=== PATIENT | female | born 1940 | race Caucasian/White ===

== ENCOUNTER 2022-08-31 11:48 | Inpatient (IN) ==
[2022-08-31] MEDS ORDERED: ONDANSETRON INJ 2 MG/ML 2 ML VIAL IV STA (12:10)
[2022-08-31] MEDS ORDERED: SODIUM CHLORIDE 0.9% 1000ML 1,000 ML IV ONE (12:10)
--- NOTE | 2022-08-31 12:14 | Emergency Department Note ---
Impression & Plan Abdominal pain, COVID, Vomiting ED Provider Note NAME: LUCY QUINTANILLA AGE: 82 SEX: F : 1940 ARRIVES VIA: Walk-In INFORMANT: Patient ED PROVIDER(S): Tam Zapata DO CHIEF COMPLAINT: Vomiting and COVID-positive HPI: Patient is an 81-year-old female who presents to the ER with daughter at bedside. Symptoms started on Friday feeling weak and rundown. She has a cough, congestion and runny nose. No chest pain or shortness of breath. She admits to persistent nausea which has been present for several months but now she has had vomiting for the past 24 hours consistently. She cannot keep anything down. She admits to periumbilical abdominal pain. No dysuria, urgency, or frequency. No other exacerbating or remitting factors. ROS: See above HPI for pertinent positives & negatives. A total of 10 systems reviewed and were otherwise negative. PAST MEDICAL HISTORY:See Below PAST SURGICAL HISTORY:See Below FAMILY HISTORY:See Below SOCIAL HISTORY:See Below HOME MEDICATIONS:See Below ALLERGIES:See Below VITALS:See Below PHYSICAL EXAMINATION: GENERAL: Sitting up in bed, alert, chronically ill-appearing, disheveled, persistent cough EYE EXAM: normal conjunctiva. OROPHARYNX: mucous membranes are dry NECK: supple, no nuchal rigidity, no adenopathy, non-tender LUNGS: Clear to auscultation. Normal chest wall mechanics HEART: no murmurs, S1 normal and S2 normal ABDOMEN: abdomen soft, non-tender, normo-active bowel sounds, no masses, no rebound or guarding. UPPER EXTREMITIES: upper extremities are grossly normal. LOWER EXTREMITIES: No pitting edema. NEURO EXAM: Normal sensorium, cranial nerves II-XII grossly intact, normal speech, no gross weakness of arms, no gross weakness of legs. MEDICAL DECISION MAKING: Patient is an 82-year-old female who presents the ER who is COVID-positive with nausea vomiting abdominal pain. She denies any chest pain or shortness of breath. IV was established blood work is obtained. Labs show no significant leukocytosis. Mild anemia 10.9. BMP with creatinine 1.37. LFTs bilirubin was unremarkable. Lipase was normal. UA was contaminated. Patient was COVID-positive. CT abdomen pelvis shows mild pulmonary edema and a tubular lesion in the right lower quadrant. This can be followed up as an inpatient. She was given multiple doses of Zofran and Reglan and still had persistent vomiting. She was given a small dill bolus of IV fluids. She was updated bedside. Discussed with hospitalist [facility] She was also given 2 doses of morphine which did drop her oxygen saturations. She became slightly hypoxic. She was placed on 2 L nasal cannula. Triage Nursing notes reviewed. Limited review of prior medical records performed Vital Signs: reviewed and remarkable for HTN Differential diagnosis: Differential diagnoses includes but is not limited to gastritis, peptic ulcer disease, GERD, gallbladder disease, pancreatitis, small bowel obstruction, acute coronary syndrome, pericarditis, ischemic bowel, irritable bowel disease, irritable bowel syndrome, appendicitis, diverticulitis, malignancy, hernia, urinary tract infection, torsion, /ectopic (if female), perforation, trauma, infectious. ER treatment provided: See below Diagnostics interpreted by me: ECG: none Cardiac Monitoring: An order was placed for continuous cardiac monitoring. The monitor shows a rate of 70 with sinus rhythm. Laboratory studies: As stated above and show below. Imaging studies: CT as described above of the abdomen pelvis Consultation(s): [facility] Procedures: none Critical Care: None Past Med/Surg History Social History Smoking Status: Former smoker Preferred Language: Syriac Feels Safe at Home: Yes Allergies Allergies Allergy/AdvReac Type Severity Reaction Status Date / Time oxycodone Allergy Unknown Verified 08/31/22 16:25 Home Meds Home Medications Medication Instructions Recorded Confirmed acetaminophen 500 mg tablet 500 mg PO Q6 PRN Fever Or Pain 08/31/22 08/31/22 acetaminophen 500 mg tablet 500 mg PO QPM 08/31/22 08/31/22 atorvastatin 10 mg tablet 10 mg PO HS 08/31/22 08/31/22 brimonidine 0.1 % eye drops 1 drp OPL BID 08/31/22 08/31/22 (Alphagan P) cholecalciferol (vitamin D3) 50 2,000 unit PO AMHS 08/31/22 08/31/22 mcg (2,000 unit) capsule dorzolamide 22.3 mg-timolol 6.8 1 drp OPL AMHS 08/31/22 08/31/22 mg/mL eye drops furosemide 40 mg tablet 20 mg PO QAM 08/31/22 08/31/22 hydralazine 25 mg tablet 50 mg PO AMHS 08/31/22 08/31/22 insulin aspart U-100 100 unit/mL 1 - 3 unit subcut .WITH BREAKFAST 08/31/22 08/31/22 (3 mL) subcutaneous pen (Novolog Flexpen U-100 Insulin aspart) insulin glargine 100 unit/mL (3 15 - 18 unit subcut .Q AFTERNOON & 08/31/22 08/31/22 mL) subcutaneous pen (Basaglar HS KwikPen U-100 Insulin) labetalol 200 mg tablet 300 mg PO AMHS 08/31/22 08/31/22 metoclopramide HCl 5 mg tablet 5 mg PO DAILYBB 08/31/22 08/31/22 ondansetron HCl 4 mg tablet 4 mg PO Q8 PRN Nausea 08/31/22 08/31/22 pantoprazole 40 mg tablet,delayed 40 mg PO HS 08/31/22 08/31/22 release silver sulfadiazine 1 % topical 1 applic topical BID 08/31/22 08/31/22 cream (SSD) travoprost 0.004 % eye drops 1 drp OPL QPM 08/31/22 08/31/22 (Travatan Z) Results & Data (ED) Vital Signs Vital Signs - 24 hr 08/31/22 11:53 08/31/22 13:37 08/31/22 15:23 Pulse Rate 71 Pulse Rate [Right Finger] 71 76 Respiratory Rate 18 18 18 Respiratory Depth Normal Blood Pressure 188/93 H Blood Pressure [Right Arm] 144/77 H 137/68 Blood Pressure Mean 124 Blood Pressure Mean [Right Arm] 99 91 Blood Pressure Position Sitting Blood Pressure Position [Right Arm] Lying Pulse Oximetry 94 91 91 Oxygen Delivery Method Room Air Room Air Nasal Cannula Oxygen Flow Rate 3 Sepsis Recent Fever Within 48 Hours No Sepsis New/Unexplained Change in Mental Status No Sepsis Action Taken by Nursing No Action Required 08/31/22 15:40 08/31/22 16:46 Pulse Rate Pulse Rate [Right Finger] Respiratory Rate Respiratory Depth Blood Pressure Blood Pressure [Right Arm] Blood Pressure Mean Blood Pressure Mean [Right Arm] Blood Pressure Position Blood Pressure Position [Right Arm] Pulse Oximetry 97 93 Oxygen Delivery Method Room Air Nasal Cannula Oxygen Flow Rate 3 Sepsis Recent Fever Within 48 Hours Sepsis New/Unexplained Change in Mental Status Sepsis Action Taken by Nursing Laboratory Data Result diagrams: 08/31/22 12:50 08/31/22 12:50 Lab Results 08/31/22 08/31/22 08/31/22 Range/Units 12:50 12:50 12:50 WBC 5.62 (4.8-10.8) K/ul RBC 4.16 (3.93-5.22) M/uL Hgb 10.9 L (12.0-16.0) g/dl Hct 32.8 L (34.1-44.9) % MCV 78.8 L (80.0-100.0) fL MCH 26.2 (25.0-34.0) pg MCHC 33.2 (32.0-36.0) g/dL RDW Std Deviation 41.2 (36.4-46.3) fL RDW Coeff of Maegan 14.6 H (11.5-14.5) % Plt Count 200 (130-400) K/uL MPV 11.4 (9.4-12.3) fL Immature Gran % (Auto) 0.2 % Neut % (Auto) 71.7 % Lymph % (Auto) 23.3 % Door % (Auto) 4.4 % Eos % (Auto) 0.2 % Baso % (Auto) 0.2 % Neut # (Auto) 4.03 (1.4-6.5) K/uL Lymph # (Auto) 1.31 (1.2-3.4) K/uL Door # (Auto) 0.25 (0.24-0.82) K/uL Eos # (Auto) 0.01 (0-0.50) K/uL Baso # (Auto) 0.01 (0-0.2) K/uL Immature Gran # (Auto) 0.01 (0.00-0.02) K/uL Sodium 134 L (136-145) mmol/L Potassium 3.9 (3.5-5.1) mmol/L Chloride 99 (98-107) mmol/L Carbon Dioxide 22 (21-32) mmol/L Anion Gap 13 H (3-11) BUN 24 H (6-23) mg/dl Creatinine 1.37 H (0.6-1.2) mg/dl Est Cr Clr Drug Dosing Not Reportable Est GFR ( Amer) 41.2 ml/min Est GFR (Non-Af Amer) 35.6 ml/min BUN/Creatinine Ratio 17.5 (10-20) Glucose 217 H (70-99(Fasting)) mg/dl POC Glucose (70-99) mg/dl Calcium 8.9 (8.5-10.1) mg/dl Total Bilirubin 0.4 (0.2-1.0) mg/dl AST 23 (13-39) U/L ALT 14 (7-52) U/L Alkaline Phosphatase 92 (34-104) U/L Total Protein 7.5 (6.0-8.3) gm/dl Albumin 4.1 (3.4-5.0) gm/dl Globulin 3.4 (2.5-4.0) gm/dl Albumin/Globulin Ratio 1.2 (0.9-2) Lipase 12 (11-82) U/L Urine Color Urine Appearance (Clear) Urine pH (4.5-7.5) Ur Specific Lottie (1.000-1.030) Urine Protein (Negative) Urine Glucose (UA) (Negative) Urine Ketones (Negative) Urine Blood (Negative) Urine Nitrite (Negative) Urine Bilirubin (Negative) Urine Urobilinogen (Negative) Ur Leukocyte Esterase (Negative) Urine WBC (Auto) (0-5) /hpf Urine RBC (Auto) (0-4) /hpf U Hyaline Cast (Auto) (0-5) /lpf U Epithel Cells (Auto) (0-5) /lpf Urine Bacteria (Auto) (Negative) SARS-CoV-2, RNA, NAAT POSITIVE A* (NEGATIVE) 08/31/22 08/31/22 Range/Units 13:33 16:44 WBC (4.8-10.8) K/ul RBC (3.93-5.22) M/uL Hgb (12.0-16.0) g/dl Hct (34.1-44.9) % MCV (80.0-100.0) fL MCH (25.0-34.0) pg MCHC (32.0-36.0) g/dL RDW Std Deviation (36.4-46.3) fL RDW Coeff of Maegan (11.5-14.5) % Plt Count (130-400) K/uL MPV (9.4-12.3) fL Immature Gran % (Auto) % Neut % (Auto) % Lymph % (Auto) % Door % (Auto) % Eos % (Auto) % Baso % (Auto) % Neut # (Auto) (1.4-6.5) K/uL Lymph # (Auto) (1.2-3.4) K/uL Door # (Auto) (0.24-0.82) K/uL Eos # (Auto) (0-0.50) K/uL Baso # (Auto) (0-0.2) K/uL Immature Gran # (Auto) (0.00-0.02) K/uL Sodium (136-145) mmol/L Potassium (3.5-5.1) mmol/L Chloride (98-107) mmol/L Carbon Dioxide (21-32) mmol/L Anion Gap (3-11) BUN (6-23) mg/dl Creatinine (0.6-1.2) mg/dl Est Cr Clr Drug Dosing Est GFR ( Amer) ml/min Est GFR (Non-Af Amer) ml/min BUN/Creatinine Ratio (10-20) Glucose (70-99(Fasting)) mg/dl POC Glucose 239 H (70-99) mg/dl Calcium (8.5-10.1) mg/dl Total Bilirubin (0.2-1.0) mg/dl AST (13-39) U/L ALT (7-52) U/L Alkaline Phosphatase (34-104) U/L Total Protein (6.0-8.3) gm/dl Albumin (3.4-5.0) gm/dl Globulin (2.5-4.0) gm/dl Albumin/Globulin Ratio (0.9-2) Lipase (11-82) U/L Urine Color Yellow Urine Appearance Cloudy A (Clear) Urine pH 6.0 (4.5-7.5) Ur Specific Lottie 1.013 (1.000-1.030) Urine Protein 3+ H (Negative) Urine Glucose (UA) 2+ H (Negative) Urine Ketones 1+ H (Negative) Urine Blood Trace H (Negative) Urine Nitrite Negative (Negative) Urine Bilirubin Negative (Negative) Urine Urobilinogen Negative (Negative) Ur Leukocyte Esterase Trace H (Negative) Urine WBC (Auto) >30 H (0-5) /hpf Urine RBC (Auto) 0-4 (0-4) /hpf U Hyaline Cast (Auto) 1-5 (0-5) /lpf U Epithel Cells (Auto) >30 H (0-5) /lpf Urine Bacteria (Auto) 4+ H (Negative) SARS-CoV-2, RNA, NAAT (NEGATIVE) Administered Medications Ceftriaxone Sodium 2,000 mg/ (Dextrose) 70 mls @ 100 mls/hr IV DAILY ERIN; Protocol Stop: 09/05/22 16:44 Last Admin: 08/31/22 17:16 Dose: 100 mls/hr Documented By: ALEX Discontinued Medications Sodium Chloride (Nss 1000ml) 1,000 mls @ 999 mls/hr IV .Q1H1M ONE Stop: 08/31/22 13:10 Last Infusion: 08/31/22 14:55 Dose: 0 mls/hr Documented By: Admin: 08/31/22 12:43 Dose: 999 mls/hr Documented By: KASSANDRA Ioversol (Ioversol 350 Mg 100ml Prefilled Syringe) 85 ml IV ONCE ONE Stop: 08/31/22 15:00 Last Admin: 08/31/22 15:05 Dose: 85 ml Documented By: CARLIE Metoclopramide HCl (Metoclopramide Hcl Inj 5 Mg/Ml 2 Ml Vial) 5 mg IV ONE ONE Stop: 08/31/22 13:59 Last Admin: 08/31/22 14:28 Dose: 5 mg Documented By: KASSANDRA Morphine Sulfate (Morphine Sulfate 4 Mg/Ml 1 Ml Carp\Vial) 4 mg IV NOW STA Stop: 08/31/22 13:14 Last Admin: 08/31/22 13:21 Dose: 4 mg Documented By: KASSANDRA Morphine Sulfate (Morphine Sulfate 2 Mg/Ml Carp) 2 mg IV NOW STA Stop: 08/31/22 14:37 Last Admin: 08/31/22 14:40 Dose: 2 mg Documented By: KASSANDRA Ondansetron HCl (Ondansetron Inj 2 Mg/Ml 2 Ml Vial) 4 mg IV NOW STA Stop: 08/31/22 12:11 Last Admin: 08/31/22 12:42 Dose: 4 mg Documented By: KASSANDRA Imaging Data Radiologist's Impression: Abdomen/Pelvis CT 08/31/22 12:[address] WITH IV CONTRAST CT DOSE: 641.61 mGy.cm HISTORY: Nausea. Vomiting. TECHNIQUE: Multiaxial CT images of the abdomen and pelvis were performed following the use of intravenous contrast. A dose lowering technique was utilized adhering to the principles of ALARA. COMPARISON STUDY: None. FINDINGS: Mild interlobular septal thickening at the lung bases consistent with pulmonary edema. Fusion of the L4-5 vertebral bodies. There are severe degenerative disc disease at L3-L4 and L5-S1. No pneumoperitoneum. No pneumatosis. No acute fractures within the visualized osseous structures. Mild circumferential thickening of the distal esophagus with a small hiatus hernia. Small fat-containing bilateral inguinal hernias. There is a 5.0 x 2.6 cm hypodense tubular shaped lesion within the right lower quadrant. This appears to be contiguous with the tip of the appendix as well as adjacent to the right ovary. Therefore, this could represent an appendiceal mucocele or possibly an ovarian lesion. Regardless, this would be considered pathologic. No surrounding inflammatory change to suggest an acute process. The bladder, uterus, left ovary are within normal limits. No pelvic free fluid. No bowel wall thickening or obstruction. No retroperitoneal lymphadenopathy. Calcified plaque within the normal caliber abdominal aorta. The main portal vein is patent. The gallbladder, spleen, and adrenal glands unremarkable. Normal pancreas. A 1 cm hypodense lesion within the left hepatic lobe. This favors a cyst. There is moderate bilateral perinephric edema. Small linear areas of fat density within the left kidney which may represent areas of cortical scarring or small angiomyolipomas. No ureteral stones. No hydronephrosis. The majority the colon is decompressed. IMPRESSION: 1. Mild interlobular septal thickening within the lung bases consistent with mild pulmonary edema. No pleural effusions. 2. No bowel wall thickening or obstruction. 3. Moderate bilateral perinephric edema. This is likely chronic. Recommend correlation with urinalysis to exclude the possibility of a superimposed infection. 4. There is a 5.0 x 2.6 cm hypodense tubular shaped lesion within the right lower quadrant. This appears to be contiguous with the tip of the appendix as well as adjacent to the right ovary. Therefore, this could represent an appendiceal mucocele or possibly an ovarian lesion. Regardless, this would be considered pathologic and nonemergent surgical consultation recommended. 5. Additional findings as described above. ACT 112: Negative or not required by law. Electronically signed by: Chester Jalloh M.D. 08/31/2022 3:20 PM Chest X-Ray 08/31/22 12:10 XR chest 1V portable HISTORY: cough COMPARISON: None. FINDINGS: The cardiac silhouette is top normal in size. Mild central bronchial wall thickening which is likely chronic. No new focal lung consolidations to suggest a pneumonia. No evidence for pulmonary edema. There is eventration of the right hemidiaphragm. IMPRESSION: No acute process. ACT 112: Negative or not required by law. Electronically signed by: Chester Jalloh M.D. 08/31/2022 12:31 PM Discharge Plan Visit Data Chief Complaint: Vomiting Stated Complaint: VOMITTING SINCE LAST NIGHT, COVID POSITIVE ED Provider: Tam Zapata Discharge Problem: Abdominal pain, COVID, Vomiting Forms Stand Alone Forms: [facility] Prescriptions Prescriptions: No Action furosemide 40 mg tablet 20 mg PO QAM Rx Instructions: 1/2 tablet dose silver sulfadiazine [SSD] 1 % cream 1 applic TOPICAL BID Rx Instructions: apply to bed sore labetalol 200 mg tablet 300 mg PO AMHS Rx Instructions: 1 & 1/2 tablet dose atorvastatin 10 mg tablet 10 mg PO HS ondansetron HCl 4 mg tablet 4 mg PO Q8 PRN (Reason: Nausea) travoprost [Travatan Z] 0.004 % drops 1 drp OPL QPM acetaminophen 500 mg tablet 500 mg PO Q6 PRN (Reason: Fever Or Pain) metoclopramide HCl 5 mg tablet 5 mg PO DAILYBB dorzolamide-timolol 22.3-6.8 mg/mL drops 1 drp OPL AMHS Rx Instructions: 1 drop into each affected eye twice a day pantoprazole 40 mg tablet,delayed release (DR/EC) 40 mg PO HS Alphagan P 0.1 % drops 1 drp OPL BID insulin glargine [Basaglar KwikPen U-100 Insulin] 100 unit/mL (3 mL) insulin pen 15 - 18 unit SUBCUT .Q AFTERNOON & HS Rx Instructions: sliding scale post BSG every afternoon and at bedtime cholecalciferol (vitamin D3) 50 mcg (2,000 unit) capsule 2,000 unit PO AMHS hydralazine 25 mg tablet 50 mg PO AMHS acetaminophen 500 mg tablet 500 mg PO QPM insulin aspart U-100 [Novolog Flexpen U-100 Insulin] 100 unit/mL (3 mL) insulin pen 1 - 3 unit SUBCUT .WITH BREAKFAST Referrals Referrals: PCP,NO [Primary Care Provider] -
--- NOTE | 2022-08-31 12:32 | XRay Report ---
XR chest 1V portable HISTORY: cough COMPARISON: None. FINDINGS: The cardiac silhouette is top normal in size. Mild central bronchial wall thickening which is likely chronic. No new focal lung consolidations to suggest a pneumonia. No evidence for pulmonary edema. There is eventration of the right hemidiaphragm. IMPRESSION: No acute process. ACT 112: Negative or not required by law. Electronically signed by: Chester Jalloh M.D. 08/31/2022 12:31 PM
[2022-08-31] MEDS ORDERED: MoRPHine SULFATE 4 MG/ML 1 ML CARP\\VIAL IV STA (13:13)
[2022-08-31 13:17] LABS: Basophils # (auto) 0.01 K/uL (0-0.2); Basophils % (auto) 0.2 %; Eosinophils # (auto) 0.01 K/uL (0-0.50); Eosinophils % (auto) 0.2 %; Hematocrit (blood only) 32.8 % (34.1-44.9); Hemoglobin 10.9 g/dl (12.0-16.0); Immature Granulocytes # (auto) 0.01 K/uL (0.00-0.02); Immature Granulocytes % (auto) 0.2 %; Lymphocytes # (auto) 1.31 K/uL (1.2-3.4); Lymphocytes % (auto) 23.3 %; Mean Corpuscular Hemoglobin 26.2 pg (25.0-34.0); Mean Corpuscular Hgb Conc 33.2 g/dL (32.0-36.0); Mean Corpuscular Volume 78.8 fL (80.0-100.0); Mean Platelet Volume 11.4 fL (9.4-12.3); Monocytes # (auto) 0.25 K/uL (0.24-0.82); Monocytes % (auto) 4.4 %; Neutrophils # (auto) 4.03 K/uL (1.4-6.5); Neutrophils % (auto) 71.7 %; Platelet Count 200 K/uL (130-400); RDW Coefficient of Variation 14.6 % (11.5-14.5); RDW Standard Deviation 41.2 fL (36.4-46.3); Red Blood Count 4.16 M/uL (3.93-5.22); White Blood Count 5.62 K/ul (4.8-10.8)
[2022-08-31 13:38] LABS: Alanine Aminotransferase 14 U/L (7-52); Albumin Globulin Ratio 1.2 (0.9-2); Albumin Level 4.1 gm/dl (3.4-5.0); Alkaline Phosphatase 92 U/L (34-104); Anion Gap 13 (3-11); Aspartate Aminotransferase 23 U/L (13-39); BUN Creatinine Ratio 17.5 (10-20); Bilirubin,Total 0.4 mg/dl (0.2-1.0); Blood Urea Nitrogen 24 mg/dl (6-23); Calcium 8.9 mg/dl (8.5-10.1); Carbon Dioxide 22 mmol/L (21-32); Chloride 99 mmol/L (98-107); Est GFR (African American) 41.2 ml/min; Est GFR (Non-African American) 35.6 ml/min; Globulin 3.4 gm/dl (2.5-4.0); Glucose 217 mg/dl (70-99(Fasting)); Lipase 12 U/L (11-82); Potassium 3.9 mmol/L (3.5-5.1); Sodium 134 mmol/L (136-145); Total Protein 7.5 gm/dl (6.0-8.3)
[2022-08-31 13:52] LABS: Appearance Urine Cloudy (Clear); Bacteria Urine Automated 4+ (Negative); Bilirubin Urine Negative (Negative); Blood Urine Trace (Negative); Color Urine Yellow; Epithelial Cell Urine Auto >30 /lpf (0-5); Glucose Urine UA 2+ (Negative); Ketones Urine 1+ (Negative); Leukocyte Esterase Urine Trace (Negative); Nitrite Urine Negative (Negative); Protein Urine 3+ (Negative); RBC Urine Automated 0-4 /hpf (0-4); Specific Gravity Urine 1.013 (1.000-1.030); Urobilinogen Urine Negative (Negative); WBC Urine Automated >30 /hpf (0-5)
[2022-08-31] MEDS ORDERED: METOCLOPRAMIDE HCL INJ 5 MG/ML 2 ML VIAL IV ONE (13:58)
[2022-08-31] MEDS ORDERED: MoRPHine SULFATE 2 MG/ML CARP IV STA (14:36)
[2022-08-31] MEDS ORDERED: IOVERSOL 350 MG 100mL Prefilled Syringe IV ONE (14:59)
--- NOTE | 2022-08-31 15:22 | CT Scan Report ---
ABDOMEN AND PELVIS CT WITH IV CONTRAST CT DOSE: 641.61 mGy.cm HISTORY: Nausea. Vomiting. TECHNIQUE: Multiaxial CT images of the abdomen and pelvis were performed following the use of intrave nous contrast. A dose lowering technique was utilized adhering to the principles of ALARA. COMPARISON STUDY: None. FINDINGS: Mild interlobular septal thickening at the lung bases consistent with pulmonary edema. Fusi on of the L4-5 vertebral bodies. There are severe degenerative disc disease at L3-L4 and L5-S1. No pn eumoperitoneum. No pneumatosis. No acute fractures within the visualized osseous structures. Mild cir cumferential thickening of the distal esophagus with a small hiatus hernia. Small fat-containing bila teral inguinal hernias. There is a 5.0 x 2.6 cm hypodense tubular shaped lesion within the right lowe r quadrant. This appears to be contiguous with the tip of the appendix as well as adjacent to the rig ht ovary. Therefore, this could represent an appendiceal mucocele or possibly an ovarian lesion. Rega rdless, this would be considered pathologic. No surrounding inflammatory change to suggest an acute p rocess. The bladder, uterus, left ovary are within normal limits. No pelvic free fluid. No bowel wall thickening or obstruction. No retroperitoneal lymphadenopathy. Calcified plaque within the normal ca liber abdominal aorta. The main portal vein is patent. The gallbladder, spleen, and adrenal glands un remarkable. Normal pancreas. A 1 cm hypodense lesion within the left hepatic lobe. This favors a cyst . There is moderate bilateral perinephric edema. Small linear areas of fat density within the left ki dney which may represent areas of cortical scarring or small angiomyolipomas. No ureteral stones. No hydronephrosis. The majority the colon is decompressed. IMPRESSION: 1. Mild interlobular septal thickening within the lung bases consistent with mild pulmonary edema. No pleural effusions. 2. No bowel wall thickening or obstruction. 3. Moderate bilateral perinephric edema. This is likely chronic. Recommend correlation with urinalysi s to exclude the possibility of a superimposed infection. 4. There is a 5.0 x 2.6 cm hypodense tubular shaped lesion within the right lower quadrant. This appe ars to be contiguous with the tip of the appendix as well as adjacent to the right ovary. Therefore, this could represent an appendiceal mucocele or possibly an ovarian lesion. Regardless, this would be considered pathologic and nonemergent surgical consultation recommended. 5. Additional findings as described above. ACT 112: Negative or not required by law. Electronically signed by: Chester Jalloh M.D. 08/31/2022 3:20 PM
[2022-08-31] MEDS ORDERED: ACETAMINOPHEN 325 MG TAB PO PRN (15:49)
[2022-08-31] MEDS ORDERED: GLUCOSE 40% GEL 15 GM TUBE PO PRN (15:53)
[2022-08-31] MEDS ORDERED: GLUCAGON FOR INJ 1 MG VIAL SQ PRN (15:53)
[2022-08-31] MEDS ORDERED: GLUCOSE 10 TAB/TUBE PO PRN (15:53)
[2022-08-31] MEDS ORDERED: DEXTROSE 50% 50 ML SYRINGE IV PRN (15:53)
[2022-08-31] MEDS ORDERED: CARBOHYDRATES FOR HYPOGLYCEMIA PO PRN (15:53)
[2022-08-31] MEDS ORDERED: PHARMACY GLYCEMIC MGMT CONSULT PRN (15:53)
[2022-08-31] MEDS ORDERED: Patient's ALLERGY Info needs ENTERED SCH (16:00)
--- NOTE | 2022-08-31 17:05 | History & Physical Report ---
Date of Service August 31, 2022 Assessment & Plan (1) Gastroparesis: Plan: - persistent n/v and abdominal pain in the setting of diabetes - reports recent use of metoclopramide with ?torticollis side effects? - will avoid metoclopramide for now - NPO - IVF - IV erythromycin - GI consult - insulin for DM and good BG control in setting of gastroparesis (2) DM2 (diabetes mellitus, type 2): Plan: - A1c pending - on lantus and prandials - will continue here - diabetic diet when tolerating PO - pharmacy insulin management (3) HTN (hypertension): Plan: - continue home medications - IV prns as needed if not tolerating PO (4) COVID-19: Plan: - mild symptoms of sore throat and rhinorrhea - now resolved - persistent dry cough - oxygen borderline but will monitor overnight before treating with steroids and remdesivir - oxygen as needed to keep SpO2 >92% (5) Anemia: Plan: - ghb 10.9 on admission - unclear baseline - no bleeding noted - iron studies, ferritin, b12, folate ordered - monitor for now (6) MARY KATE (acute kidney injury): Plan: - likely in the setting of decreased po intake and n/v/d - IVF in ed and will continue - trend Cr - avoid nephrotoxic meds (7) Hyponatremia: Plan: - likely from decreased po - IVF as above - monitor Na in AM labs (8) UTI (urinary tract infection): Plan: - positive UA, positive symptoms of frequency - will treat with IVF - ceftriaxone for 5 days Plan DVT ppx: heparin SC Code Status: Full Code Dispo: med/surg Tom Reed MD [facility] History of Present Illness Chief Complaint: nausea, vomiting, abdominal pain Primary Care Provider: NO PCP The patient is an 82 year old woman with pmh DM2, gastroparesis, HLD, HTN who presents with 2-3 days of intractable nausea and vomiting with abdominal pain. the patient and daughter at bedside say she has been experiencing persistent nausea for several months and had seen a business services vice president who prescribed metoclopramide for gastroparesis. However, the patient reports symptoms of torti kanu after starting metoclopramide despite relief from gastroparesis symptoms. The patient reports severe vomiting starting last night, prior to admission. She has not been able to eat and has had terrible abdominal pain. She denies fevers or chills but was COVID positive since Friday prior to admission with symptoms of sore throat, loss of taste, rhinorrhea, dry cough. She also reports decreased appetite for the past 2 weeks with minimal po intake due to pain, nausea and vomiting. Denies blood in vomit. Had several episodes of diarrhea in the last 24 hours as well. Denies chest pain, shortness of breath, dysuria but endorses frequency. In the ED, vitals were unremarkable. Labs were significant for Na 134, Cr 1.37 (unclear baseline), hgb 10.9 (unclear baseline), BG 217, AG 13, UA positive for infection, SARS-CoV-2 positive. CXR was negative, CT-AP showed possible ?mucocele (5.0 x 2.6 cm hypodense tubular shaped lesion within the right lower quadrant. This appears to be contiguous with the tip of the appendix as well as adjacent to the right ovary. Therefore, this could represent an appendiceal mucocele or possibly an ovarian lesion). She was given IVF, pain medication, metoclopramide and admitted to medicine. Allergies Allergy/AdvReac Type Severity Reaction Status Date / Time oxycodone Allergy Unknown Verified 08/31/22 16:25 Home Medications Medication Instructions Recorded Confirmed Type acetaminophen 500 mg tablet 500 mg PO Q6 PRN Fever Or Pain 08/31/22 08/31/22 History acetaminophen 500 mg tablet 500 mg PO QPM 08/31/22 08/31/22 History atorvastatin 10 mg tablet 10 mg PO HS 08/31/22 08/31/22 History brimonidine 0.1 % eye drops 1 drp OPL BID 08/31/22 08/31/22 History (Alphagan P) cholecalciferol (vitamin D3) 50 2,000 unit PO AMHS 08/31/22 08/31/22 History mcg (2,000 unit) capsule dorzolamide 22.3 mg-timolol 6.8 1 drp OPL AMHS 08/31/22 08/31/22 History mg/mL eye drops furosemide 40 mg tablet 20 mg PO QAM 08/31/22 08/31/22 History hydralazine 25 mg tablet 50 mg PO AMHS 08/31/22 08/31/22 History insulin aspart U-100 100 unit/mL 1 - 3 unit subcut .WITH BREAKFAST 08/31/22 08/31/22 History (3 mL) subcutaneous pen (Novolog Flexpen U-100 Insulin aspart) insulin glargine 100 unit/mL (3 15 - 18 unit subcut .Q AFTERNOON & 08/31/22 08/31/22 History mL) subcutaneous pen (Basaglar HS KwikPen U-100 Insulin) labetalol 200 mg tablet 300 mg PO AMHS 08/31/22 08/31/22 History metoclopramide HCl 5 mg tablet 5 mg PO DAILYBB 08/31/22 08/31/22 History ondansetron HCl 4 mg tablet 4 mg PO Q8 PRN Nausea 08/31/22 08/31/22 History pantoprazole 40 mg tablet,delayed 40 mg PO HS 08/31/22 08/31/22 History release silver sulfadiazine 1 % topical 1 applic topical BID 08/31/22 08/31/22 History cream (SSD) travoprost 0.004 % eye drops 1 drp OPL QPM 08/31/22 08/31/22 History (Travatan Z) Past Med/Surg History Social History Smoking Status: Former smoker Preferred Language: Angolan Feels Safe at Home: Yes Review of Systems Review of Systems: All systems reviewed & are unremarkable except as noted in Subjective Physical Exam Physical Exam: GENERAL: sleepy, lying in bed, alert when spoken to, chronically ill-appearing, disheveled EYE EXAM: injected conjunctiva. OROPHARYNX: mucous membranes are dry NECK: supple, no nuchal rigidity, no adenopathy, non-tender LUNGS: Clear to auscultation. Normal chest wall mechanics HEART: no murmurs, S1 normal and S2 normal ABDOMEN: abdomen soft, tender to palpation in epigastric region, hypoactive bowel sounds, no masses, no rebound or guarding. UPPER EXTREMITIES: upper extremities are grossly normal. LOWER EXTREMITIES: No pitting edema. NEURO EXAM: Normal sensorium, cranial nerves II-XII grossly intact, normal speech, no gross weakness of arms, no gross weakness of legs. Results & Data Results & Data ([facility]) Vital Signs (Past 12 Hours) Vital Signs Pulse Pulse Resp BP BP Pulse Ox O2 Del Method 08/31/22 16:46 93 Nasal Cannula 08/31/22 15:40 97 Room Air 08/31/22 15:23 76 18 137/68 91 Nasal Cannula 08/31/22 13:37 71 18 144/77 H 91 Room Air 08/31/22 11:53 71 18 188/93 H 94 Room Air O2 Flow Rate 08/31/22 16:46 3 08/31/22 15:40 08/31/22 15:23 3 08/31/22 13:37 08/31/22 11:53 Diagnostic Findings Laboratory Results WBC 5.62 K/ul (4.8-10.8) 08/31/22 12:50 RBC 4.16 M/uL (3.93-5.22) 08/31/22 12:50 Hgb 10.9 g/dl (12.0-16.0) L 08/31/22 12:50 Hct 32.8 % (34.1-44.9) L 08/31/22 12:50 MCV 78.8 fL (80.0-100.0) L 08/31/22 12:50 MCH 26.2 pg (25.0-34.0) 08/31/22 12:50 MCHC 33.2 g/dL (32.0-36.0) 08/31/22 12:50 RDW Std Deviation 41.2 fL (36.4-46.3) 08/31/22 12:50 RDW Coeff of Maegan 14.6 % (11.5-14.5) H 08/31/22 12:50 Plt Count 200 K/uL (130-400) 08/31/22 12:50 MPV 11.4 fL (9.4-12.3) 08/31/22 12:50 Immature Gran % (Auto) 0.2 % 08/31/22 12:50 Neut % (Auto) 71.7 % 08/31/22 12:50 Lymph % (Auto) 23.3 % 08/31/22 12:50 [place] % (Auto) 4.4 % 08/31/22 12:50 Eos % (Auto) 0.2 % 08/31/22 12:50 Baso % (Auto) 0.2 % 08/31/22 12:50 Neut # (Auto) 4.03 K/uL (1.4-6.5) 08/31/22 12:50 Lymph # (Auto) 1.31 K/uL (1.2-3.4) 08/31/22 12:50 [place] # (Auto) 0.25 K/uL (0.24-0.82) 08/31/22 12:50 Eos # (Auto) 0.01 K/uL (0-0.50) 08/31/22 12:50 Baso # (Auto) 0.01 K/uL (0-0.2) 08/31/22 12:50 Immature Gran # (Auto) 0.01 K/uL (0.00-0.02) 08/31/22 12:50 Sodium 134 mmol/L (136-145) L 08/31/22 12:50 Potassium 3.9 mmol/L (3.5-5.1) 08/31/22 12:50 Chloride 99 mmol/L (98-107) 08/31/22 12:50 Carbon Dioxide 22 mmol/L (21-32) 08/31/22 12:50 Anion Gap 13 (3-11) H 08/31/22 12:50 BUN 24 mg/dl (6-23) H 08/31/22 12:50 Creatinine 1.37 mg/dl (0.6-1.2) H 08/31/22 12:50 Est Cr Clr Drug Dosing Not Reportable 08/31/22 12:50 Est GFR ( Amer) 41.2 ml/min 08/31/22 12:50 Est GFR (Non-Af Amer) 35.6 ml/min 08/31/22 12:50 BUN/Creatinine Ratio 17.5 (10-20) 08/31/22 12:50 Glucose 217 mg/dl (70-99(Fasting)) H 08/31/22 12:50 POC Glucose 239 mg/dl (70-99) H 08/31/22 16:44 Calcium 8.9 mg/dl (8.5-10.1) 08/31/22 12:50 Total Bilirubin 0.4 mg/dl (0.2-1.0) 08/31/22 12:50 AST 23 U/L (13-39) 08/31/22 12:50 ALT 14 U/L (7-52) 08/31/22 12:50 Alkaline Phosphatase 92 U/L (34-104) 08/31/22 12:50 Total Protein 7.5 gm/dl (6.0-8.3) 08/31/22 12:50 Albumin 4.1 gm/dl (3.4-5.0) 08/31/22 12:50 Globulin 3.4 gm/dl (2.5-4.0) 08/31/22 12:50 Albumin/Globulin Ratio 1.2 (0.9-2) 08/31/22 12:50 Lipase 12 U/L (11-82) 08/31/22 12:50 Urine Color Yellow 08/31/22 13:33 Urine Appearance Cloudy (Clear) A 08/31/22 13:33 Urine pH 6.0 (4.5-7.5) 08/31/22 13:33 Ur Specific [place] 1.013 (1.000-1.030) 08/31/22 13:33 Urine Protein 3+ (Negative) H 08/31/22 13:33 Urine Glucose (UA) 2+ (Negative) H 08/31/22 13:33 Urine Ketones 1+ (Negative) H 08/31/22 13:33 Urine Blood Trace (Negative) H 08/31/22 13:33 Urine Nitrite Negative (Negative) 08/31/22 13:33 Urine Bilirubin Negative (Negative) 08/31/22 13:33 Urine Urobilinogen Negative (Negative) 08/31/22 13:33 Ur Leukocyte Esterase Trace (Negative) H 08/31/22 13:33 Urine WBC (Auto) >30 /hpf (0-5) H 08/31/22 13:33 Urine RBC (Auto) 0-4 /hpf (0-4) 08/31/22 13:33 U Hyaline Cast (Auto) 1-5 /lpf (0-5) 08/31/22 13:33 U Epithel Cells (Auto) >30 /lpf (0-5) H 08/31/22 13:33 Urine Bacteria (Auto) 4+ (Negative) H 08/31/22 13:33 SARS-CoV-2, RNA, NAAT POSITIVE (NEGATIVE) A* 08/31/22 12:50 Impressions Abdomen/Pelvis CT 08/31/22 12:[address] WITH IV CONTRAST CT DOSE: 641.61 mGy.cm HISTORY: Nausea. Vomiting. TECHNIQUE: Multiaxial CT images of the abdomen and pelvis were performed following the use of intravenous contrast. A dose lowering technique was utilized adhering to the principles of ALARA. COMPARISON STUDY: None. FINDINGS: Mild interlobular septal thickening at the lung bases consistent with pulmonary edema. Fusion of the L4-5 vertebral bodies. There are severe degenerative disc disease at L3-L4 and L5-S1. No pneumoperitoneum. No pneumatosis. No acute fractures within the visualized osseous structures. Mild circumferential thickening of the distal esophagus with a small hiatus hernia. Small fat-containing bilateral inguinal hernias. There is a 5.0 x 2.6 cm hypodense tubular shaped lesion within the right lower quadrant. This appears to be contiguous with the tip of the appendix as well as adjacent to the right ovary. Therefore, this could represent an appendiceal mucocele or possibly an ovarian lesion. Regardless, this would be considered pathologic. No surrounding inflammatory change to suggest an acute process. The bladder, uterus, left ovary are within normal limits. No pelvic free fluid. No bowel wall thickening or obstruction. No retroperitoneal lymphadenopathy. Calcified plaque within the normal caliber abdominal aorta. The main portal vein is patent. The gallbladder, spleen, and adrenal glands unremarkable. Normal pancreas. A 1 cm hypodense lesion within the left hepatic lobe. This favors a cyst. There is moderate bilateral perinephric edema. Small linear areas of fat density within the left kidney which may represent areas of cortical scarring or small angiomyolipomas. No ureteral stones. No hydronephrosis. The majority the colon is decompressed. IMPRESSION: 1. Mild interlobular septal thickening within the lung bases consistent with mild pulmonary edema. No pleural effusions. 2. No bowel wall thickening or obstruction. 3. Moderate bilateral perinephric edema. This is likely chronic. Recommend correlation with urinalysis to exclude the possibility of a superimposed infection. 4. There is a 5.0 x 2.6 cm hypodense tubular shaped lesion within the right lower quadrant. This appears to be contiguous with the tip of the appendix as well as adjacent to the right ovary. Therefore, this could represent an appendic eal mucocele or possibly an ovarian lesion. Regardless, this would be considered pathologic and nonemergent surgical consultation recommended. 5. Additional findings as described above. ACT 112: Negative or not required by law. Electronically signed by: Chester Jalloh M.D. 08/31/2022 3:20 PM Chest X-Ray 08/31/22 12:10 XR chest 1V portable HISTORY: cough COMPARISON: None. FINDINGS: The cardiac silhouette is top normal in size. Mild central bronchial wall thickening which is likely chronic. No new focal lung consolidations to suggest a pneumonia. No evidence for pulmonary edema. There is eventration of the right hemidiaphragm. IMPRESSION: No acute process. ACT 112: Negative or not required by law. Electronically signed by: Chester Jalloh M.D. 08/31/2022 12:31 PM Medications Administered Current Inpatient Medications Acetaminophen (Acetaminophen 325 Mg Tab) 650 mg PO Q4H PRN PRN Reason: Pain or Fever Stop: 09/30/22 15:48 Dextrose (Dextrose 50% 50 Ml Syringe) 25 - 50 ml IV UD PRN; Protocol PRN Reason: Hypoglycemia Protocol Stop: 09/30/22 15:52 Glucagon (Glucagon For Inj 1 Mg Vial) 1 mg SQ UD PRN; Protocol PRN Reason: Hypoglycemia Protocol Stop: 09/30/22 15:52 Glucose (Glucose 40% Gel 15 Gm Tube) 15 - 30 gm PO UD PRN; Protocol PRN Reason: Hypoglycemia Protocol Stop: 09/30/22 15:52 Glucose (Glucose 10 Tab/Tube) 4 - 8 tab PO UD PRN; Protocol PRN Reason: Hypoglycemia Treatment Stop: 09/30/22 15:52 Heparin Sodium (Porcine) (Heparin Sod 5,000 Unit/0.5 Ml Vial) 5,000 units SQ Q8 ERIN Stop: 09/30/22 21:59 Lactated Ringer's (Lr) 1,000 mls @ 100 mls/hr IV .Q10H ERIN Stop: 09/01/22 22:44 Erythromycin Lactobionate 250 (mg/ Sodium Chloride) 255 mls @ 250 mls/hr IV Q8 ERIN Stop: 09/04/22 21:59 Ceftriaxone Sodium 2,000 mg/ (Dextrose) 70 mls @ 100 mls/hr IV DAILY ERIN; Protocol Stop: 09/05/22 16:44 Insulin Aspart (Insulin Aspart Per Unit) 0 units SC ACHS ERIN; Protocol Stop: 09/30/22 16:29 Insulin Glargine (Lantus Per Unit Charge) 0 units SQ BID ERIN; Protocol Stop: 09/30/22 20:59 Miscellaneous (Carbohydrates For Hypoglycemia ) 15 - 30 gm PO UD PRN PRN Reason: Hypoglycemia Protocol Stop: 09/30/22 15:52 Miscellaneous Information (Pharmacy Glycemic Mgmt Consult) 1 each N/A UD PRN PRN Reason: Consult Stop: 09/30/22 15:52 Ondansetron HCl (Ondansetron Inj 2 Mg/Ml 2 Ml Vial) 4 mg IV Q6H PRN PRN Reason: Nausea Stop: 09/30/22 15:48 Code Status & VTE Plan Code Status Full Code VTE Prophylaxis Plan VTE Prophylaxis will be ordered: Yes
[2022-08-31] MEDS: cefTRIAXone SODIUM 2,000 MG in DEXTROSE 5% 50 ML IV SCH (17:16)
[2022-08-31] MEDS ORDERED: LABETALOL HCL IV 5 MG/ML 20ML IV PRN (17:19)
--- NOTE | 2022-08-31 17:51 | CT Scan Report ---
HEAD CT NONCONTRAST CT DOSE: 1498.35 mGy.cm HISTORY: seizure TECHNIQUE: Multiaxial CT images of the head were performed without the use of intravenous contrast. A utomated exposure control was utilized for this study. A dose lowering technique was utilized adheri ng to the principles of ALARA. Comparison: None. Findings: There is residual contrast within the brain from the recent abdomen and pelvis CT. Mild muc osal thickening within the paranasal sinuses. The mastoid air cells are clear. The calvarium and skul l base are intact. There is no mass, hematoma, midline shift, acute infarct. White matter hypodensity is nonspecific but suggestive of microvascular ischemic change. The ventricles and sulci demonstrate mild age-related involutional changes. 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 Impression: Residual contrast within the brain from the recent abdomen and pelvis CT. However, no definite acute intracranial abnormality. ACT 112: Negative or not required by law. Electronically signed by: Chester Jalloh M.D. 08/31/2022 5:49 PM
[2022-08-31] MEDS: INSULIN ASPART PER UNIT SC SCH (17:56)
[2022-08-31] MEDS: MoRPHine SULFATE 2 MG/ML CARP IV PRN ×2 (18:00→22:32)
[2022-08-31] MEDS: ONDANSETRON INJ 2 MG/ML 2 ML VIAL IV PRN (18:01)
[2022-08-31] MEDS: LACTATED RINGER'S 1,000 ML IV SCH (18:08)
[2022-08-31 18:19] LABS: Ferritin 44.2 ng/ml (8-388)
[2022-08-31] MEDS ORDERED: hydrALAZINE HCL 20 MG/ML VIAL IV PRN (19:01)
[2022-08-31 19:03] LABS: Folate (Folic Acid) 13.74 ng/ml (>5.38)
[2022-08-31] MEDS ORDERED: REMDESIVIR 200 MG in SODIUM CHLORIDE 0.9% 210 ML IV STA (21:29)
[2022-08-31] MEDS ORDERED: Nursing to Pharmacy Communication SCH (22:00)
[2022-08-31] MEDS: DORZOLAMIDE/TIMOLOL 22.3/6.8MG/ML 10 ML BTL OPL SCH (22:43)
[2022-08-31] MEDS: PANTOprazole 40 MG in SYRINGE 0 ML IV SCH (22:43)
[2022-08-31] MEDS: TRAVOPROST Z 0.004% OPH SOLN 2.5 ML BTL OPL SCH (22:43)
[2022-08-31] MEDS: dexAMETHasone 6 MG in SYRINGE 0 ML IV SCH (22:53)
[2022-08-31] MEDS: ERYTHROMYCIN 250 MG in SODIUM CHLORIDE 0.9% 250 ML IV SCH (22:54)
[2022-08-31] MEDS: ATORVASTATIN 10 MG TAB PO SCH (23:05)
[2022-08-31] MEDS: hydrALAZINE TAB 50 MG TAB PO SCH (23:06)
[2022-08-31] MEDS: CHOLECALCIFEROL 1,000 UNITS 25 MCG TAB PO SCH (23:06)
[2022-08-31] MEDS: LABETALOL HCL 300 MG TAB PO SCH (23:06)
[2022-08-31] MEDS: HEPARIN SOD 5,000 UNIT/0.5 ML VIAL SQ SCH (23:07)
[2022-09-01] MEDS: LANTUS PER UNIT CHARGE SQ SCH ×2 (00:14→22:08)
[2022-09-01] MEDS: ONDANSETRON INJ 2 MG/ML 2 ML VIAL IV PRN ×2 (00:50→07:48)
[2022-09-01] MEDS ORDERED: PROMETHAZINE HCL 12.5 MG in SODIUM CHLORIDE 0.9% 50 ML IV STA (02:52)
[2022-09-01] MEDS: INSULIN ASPART PER UNIT SC SCH ×6 (03:29→20:31)
[2022-09-01] MEDS: ERYTHROMYCIN 250 MG in SODIUM CHLORIDE 0.9% 250 ML IV SCH ×3 (05:31→21:39)
--- NOTE | 2022-09-01 06:35 | Surgery Consultation ---
Date of Consultation September 01, 2022 Assessment & Plan (1) Abdominal pain: pt is a 82 year-old female who was admitted to hospital for epigastric pain with nausea and vomiting, CT Scan-There is a 5.0 x 2.6 cm hypodense tubular shaped lesion within the right lower quadrant. This appears to be contiguous with the tip of the appendix as well as adjacent to the right ovary. Therefore, this could represent an appendiceal mucocele or possibly an ovarian lesion. IMP: abdominal pain, possible appendix or ovary lesion, plan, recommend to consult OB-[employer] [employer] SPLITTER to R/O ovary lesion, will F/U, pt agrees with the plan, I answered all questions, History of Present Illness Reason for Consultation: abdominal pain Requesting Physician: Tom Reed MD Attending Physician: Tom Reed MD History of Present Illness Chief Complaint: nausea, vomiting, abdominal pain Primary Care Provider: NO PCP The patient is an 82 year old woman with pmh DM2, gastroparesis, HLD, HTN who presents with 2-3 days of intractable nausea and vomiting with abdominal pain. the patient and daughter at bedside say she has been experiencing persistent nausea for several months and had seen a fuel assembler who prescribed metoclopramide for gastroparesis. However, the patient reports symptoms of torticollis after starting metoclopramide despite relief from gastroparesis symptoms. The patient reports severe vomiting starting last night, prior to admission. She has not been able to eat and has had terrible abdominal pain. She denies fevers or chills but was COVID positive since Friday prior to admission with symptoms of sore throat, loss of taste, rhinorrhea, dry cough. She also reports decreased appetite for the past 2 weeks with minimal po intake due to pain, nausea and vomiting. Denies blood in vomit. Had several episodes of diarrhea in the last 24 hours as well. Denies chest pain, shortness of breath, dysuria but endorses frequency. In the ED, vitals were unremarkable. Labs were significant for Na 134, Cr 1.37 (unclear baseline), hgb 10.9 (unclear baseline), BG 217, AG 13, UA positive for infection, SARS-CoV-2 positive. CXR was negative, CT-AP showed possible ?mucocele (5.0 x 2.6 cm hypodense tubular shaped lesion within the right lower quadrant. This appears to be contiguous with the tip of the appendix as well as adjacent to the right ovary. Therefore, this could represent an appendiceal mucocele or possibly an ovarian lesion). She was given IVF, pain medication, metoclopramide and admitted to medicine. I ( Oscar Stephenson MD ) got a call for consult possible appendiceal mucocele, I reviewed pt 's H/P, labs Ct scan with pt, pt said pt feels only epigastric pain with nausea and vomiting, overnight, pt feels better, no abdominal pain or vomiting now, no fever, Allergies Allergy/AdvReac Type Severity Reaction Status Date / Time oxycodone Allergy Unknown Verified 08/31/22 16:25 Home Medications Medication Instructions Recorded Confirmed Type acetaminophen 500 mg tablet 500 mg PO Q6 PRN Fever Or Pain 08/31/22 1 History acetaminophen 500 mg tablet 500 mg PO QPM 08/31/22 08/31/22 His tory atorvastatin 10 mg tablet 10 mg PO HS 08/31/22 08/31/22 Histo ry brimonidine 0.1 % eye drops 1 drp OPL BID 08/31/22 08/31/22 His tory (Alphagan P) cholecalciferol (vitamin D3) 50 2,000 unit PO AMHS 08/31/22 08/31/22 History E mcg (2,000 unit) capsule dorzolamide 22.3 mg-timolol 6.8 1 drp OPL AMHS 08/31/22 08/31/22 History mg/mL eye drops furosemide 40 mg tablet 20 mg PO QAM 08/31/22 08/31/22 History hydralazine 25 mg tablet 50 mg PO AMHS 08/31/22 08/31/22 Histor y insulin aspart U-100 100 unit/mLF 1 - 3 unit subcut .WITH BREAKFAST 08/31/22 08/31/22 History (3 mL) subcutaneous pen (Novolog Flexpen U-100 Insulin aspart) insulin glargine 100 unit/mL (3 15 - 18 unit subcut .Q AFTERNOON & 08/31/22 08/31/22 History mL) subcutaneous pen (Basaglar HS KwikPen U-100 Insulin) labetalol 200 mg tablet 300 mg PO AMHS 08/31/22 08/31/22 History metoclopramide HCl 5 mg tablet 5 mg PO DAILYBB 08/31/22 08/31/22 History ondansetron HCl 4 mg tablet 4 mg PO Q8 PRN Nausea 08/31/22 08/31/22 H istory pantoprazole 40 mg tablet,delayed 40 mg PO HS 08/31/22 History release silver sulfadiazine 1 % topical 1 applic topical BID 08/31/22 2 History cream (SSD) travoprost 0.004 % eye drops 1 drp OPL QPM 08/31/22 08/31/22 Hi story (Travatan Z) Past Med/Surg History Social History Smoking Status: Former smoker Preferred Language: [place] Feels Safe at Home: Yes Review of Systems Review of Systems: All systems reviewed & are unremarkable except as noted in Subjective Allergies Allergy/AdvReac Type Severity Reaction Status Date / Time oxycodone Allergy Unknown Verified 08/31/22 16:25 Home Medications Medication Instructions Recorded Confirmed Type acetaminophen 500 mg tablet 500 mg PO Q6 PRN Fever Or Pain 08/31/22 08/31/22 History acetaminophen 500 mg tablet 500 mg PO QPM 08/31/22 08/31/22 History atorvastatin 10 mg tablet 10 mg PO HS 08/31/22 08/31/22 History brimonidine 0.1 % eye drops 1 drp OPL BID 08/31/22 08/31/22 History (Alphagan P) cholecalciferol (vitamin D3) 50 2,000 unit PO AMHS 08/31/22 08/31/22 History mcg (2,000 unit) capsule dorzolamide 22.3 mg-timolol 6.8 1 drp OPL AMHS 08/31/22 08/31/22 History mg/mL eye drops furosemide 40 mg tablet 20 mg PO QAM 08/31/22 08/31/22 History hydralazine 25 mg tablet 50 mg PO AMHS 08/31/22 08/31/22 History insulin aspart U-100 100 unit/mL 1 - 3 unit subcut .WITH BREAKFAST 08/31/22 08/31/22 History (3 mL) subcutaneous pen (Novolog Flexpen U-100 Insulin aspart) insulin glargine 100 unit/mL (3 15 - 18 unit subcut .Q AFTERNOON & 08/31/22 08/31/22 History mL) subcutaneous pen (Basaglar HS KwikPen U-100 Insulin) labetalol 200 mg tablet 300 mg PO AMHS 08/31/22 08/31/22 History metoclopramide HCl 5 mg tablet 5 mg PO DAILYBB 08/31/22 08/31/22 History ondansetron HCl 4 mg tablet 4 mg PO Q8 PRN Nausea 08/31/22 08/31/22 History pantoprazole 40 mg tablet,delayed 40 mg PO HS 08/31/22 08/31/22 History release silver sulfadiazine 1 % topical 1 applic topical BID 08/31/22 08/31/22 History cream (SSD) travoprost 0.004 % eye drops 1 drp OPL QPM 08/31/22 08/31/22 History (Travatan Z) Patient History Social History Smoking Status: Former smoker Second Hand Exposure: No; Do You Dip or Chew Tobacco: No; Tobacco Cessation Education Requested by Patient: No Hx Alcohol Use: No Hx Substance Use: No Preferred Language: [place] Communication Ability: Effective Porter Luggage Required: No Beliefs That Will Affect Care: None Current Living Situation: Family Current Living Situation Comment: lives with daughter Mily Other Information That Helps Us Care for You: No Feels Safe at Home: Yes Assistive Devices: Walker and Wheelchair Physical Exam Constitutional: WD/WN, vitals as above Eyes: PERRL, conjunctivae normal, anicteric sclerae Neck: trachea midline, no thyromegaly Respiratory: normal respiratory effort, lungs clear to auscultation Cardiovascular: RRR, no murmur, no edema Gastrointestinal (Abdomen): soft, NT, ND, BS +, Musculoskeletal: no cyanosis or clubbing, extremities motor strength 5/5 Neurologic: patellar DTR's 2+ bilat, sensation intact Psychiatric: A+Ox3, euthymic affect Results & Data ([facility]) Vital Signs (Past 12 Hours) Vital Signs Temp Pulse Resp BP Pulse Ox O2 Del Method O2 Flow Rate 09/01/22 05:30 120/66 09/01/22 04:39 36.3 C L 74 20 185/99 H 93 Nasal Cannula 3 08/31/22 19:57 37.1 C 82 17 161/86 H 94 Nasal Cannula 3 08/31/22 18:59 82 18 137/68 96 Nasal Cannula 3 Laboratory Results Abnormal lab results 08/31/22 08/31/22 08/31/22 Range/Units 12:50 12:50 12:50 Hgb 10.9 L (12.0-16.0) g/dl Hct 32.8 L (34.1-44.9) % MCV 78.8 L (80.0-100.0) fL RDW Coeff of Maegan 14.6 H (11.5-14.5) % Sodium 134 L (136-145) mmol/L Anion Gap 13 H (3-11) BUN 24 H (6-23) mg/dl Creatinine 1.37 H (0.6-1.2) mg/dl Glucose 217 H (70-99(Fasting)) mg/dl POC Glucose (70-99) mg/dl Iron (35-150) mcg/dl Urine Appearance (Clear) Urine Protein (Negative) Urine Glucose (UA) (Negative) Urine Ketones (Negative) Urine Blood (Negative) Ur Leukocyte Esterase (Negative) Urine WBC (Auto) (0-5) /hpf U Epithel Cells (Auto) (0-5) /lpf Urine Bacteria (Auto) (Negative) SARS-CoV-2, RNA, NAAT POSITIVE A* (NEGATIVE) 08/31/22 08/31/22 08/31/22 Range/Units 12:50 13:33 16:44 Hgb (12.0-16.0) g/dl Hct (34.1-44.9) % MCV (80.0-100.0) fL RDW Coeff of Maegan (11.5-14.5) % Sodium (136-145) mmol/L Anion Gap (3-11) BUN (6-23) mg/dl Creatinine (0.6-1.2) mg/dl Glucose (70-99(Fasting)) mg/dl POC Glucose 239 H (70-99) mg/dl Iron 30 L (35-150) mcg/dl Urine Appearance Cloudy A (Clear) Urine Protein 3+ H (Negative) Urine Glucose (UA) 2+ H (Negative) Urine Ketones 1+ H (Negative) Urine Blood Trace H (Negative) Ur Leukocyte Esterase Trace H (Negative) Urine WBC (Auto) >30 H (0-5) /hpf U Epithel Cells (Auto) >30 H (0-5) /lpf Urine Bacteria (Auto) 4+ H (Negative) SARS-CoV-2, RNA, NAAT (NEGATIVE) 08/31/22 09/01/22 Range/Units 23:11 03:20 Hgb (12.0-16.0) g/dl Hct (34.1-44.9) % MCV (80.0-100.0) fL RDW Coeff of Maegan (11.5-14.5) % Sodium (136-145) mmol/L Anion Gap (3-11) BUN (6-23) mg/dl Creatinine (0.6-1.2) mg/dl Glucose (70-99(Fasting)) mg/dl POC Glucose 203 H 208 H (70-99) mg/dl Iron (35-150) mcg/dl Urine Appearance (Clear) Urine Protein (Negative) Urine Glucose (UA) (Negative) Urine Ketones (Negative) Urine Blood (Negative) Ur Leukocyte Esterase (Negative) Urine WBC (Auto) (0-5) /hpf U Epithel Cells (Auto) (0-5) /lpf Urine Bacteria (Auto) (Negative) SARS-CoV-2, RNA, NAAT (NEGATIVE) Diagnostic Findings ABDOMEN AND PELVIS CT WITH IV CONTRAST CT DOSE: 641.61 mGy.cm HISTORY: Nausea. Vomiting. TECHNIQUE: Multiaxial CT images of the abdomen and pelvis were performed following the use of intravenous contrast. A dose lowering technique was utilized adhering to the principles of ALARA. COMPARISON STUDY: None. FINDINGS: Mild interlobular septal thickening at the lung bases consistent with pulmonary edema. Fusion of the L4-5 vertebral bodies. There are severe degenerative disc disease at L3-L4 and L5-S1. No pneumoperitoneum. No pneumatosis. No acute fractures within the visualized osseous structures. Mild circumferential thickening of the distal esophagus with a small hiatus hernia. Small fat-containing bilateral inguinal hernias. There is a 5.0 x 2.6 cm hypodense tubular shaped lesion within the right lower quadrant. This appears to be contiguous with the tip of the appendix as well as adjacent to the right ovary. Therefore, this could represent an appendiceal mucocele or possibly an ovarian lesion. Regardless, this would be considered pathologic. No surrounding inflammatory change to suggest an acute process. The bladder, uterus, left ovary are within normal limits. No pelvic free fluid. No bowel wall thickening or obstruction. No retroperitoneal lymphadenopathy. Calcified plaque within the normal caliber abdominal aorta. The main portal vein is patent. The gallbladder, spleen, and adrenal glands unremarkable. Normal pancreas. A 1 cm hypodense lesion within the left hepatic lobe. This favors a cyst. There is moderate b ilateral perinephric edema. Small linear areas of fat density within the left kidney which may represent areas of cortical scarring or small angiomyolipomas. No ureteral stones. No hydronephrosis. The majority the colon is decompressed. IMPRESSION: 1. Mild interlobular septal thickening within the lung bases consistent with mild pulmonary edema. No pleural effusions. 2. No bowel wall thickening or obstruction. 3. Moderate bilateral perinephric edema. This is likely chronic. Recommend correlation with urinalysis to exclude the possibility of a superimposed infection. 4. There is a 5.0 x 2.6 cm hypodense tubular shaped lesion within the right lower quadrant. This appears to be contiguous with the tip of the appendix as well as adjacent to the right ovary. Therefore, this could represent an appendiceal mucocele or possibly an ovarian lesion. Regardless, this would be considered pathologic and nonemergent surgical consultation recommended. 5. Additional findings as described above. ACT 112: Negative or not required by law.
[2022-09-01 06:55] LABS: Hematocrit (blood only) 30.4 % (34.1-44.9); Hemoglobin 10.2 g/dl (12.0-16.0); Immature Granulocytes # (auto) 0.01 K/uL (0.00-0.02); Immature Granulocytes % (auto) 0.2 %; Lymphocytes # (auto) 0.91 K/uL (1.2-3.4); Mean Corpuscular Hemoglobin 26.4 pg (25.0-34.0); Mean Corpuscular Hgb Conc 33.6 g/dL (32.0-36.0); Mean Corpuscular Volume 78.8 fL (80.0-100.0); Mean Platelet Volume 11.4 fL (9.4-12.3); Monocytes # (auto) 0.24 K/uL (0.24-0.82); Neutrophils # (auto) 4.89 K/uL (1.4-6.5); Neutrophils % (auto) 80.8 %; Platelet Count 248 K/uL (130-400); RDW Coefficient of Variation 14.6 % (11.5-14.5); RDW Standard Deviation 41.7 fL (36.4-46.3); Red Blood Count 3.86 M/uL (3.93-5.22); White Blood Count 6.05 K/ul (4.8-10.8)
[2022-09-01 07:26] LABS: Albumin Globulin Ratio 1.3 (0.9-2); Albumin Level 3.5 gm/dl (3.4-5.0); BUN Creatinine Ratio 18.4 (10-20); Bilirubin,Total 0.3 mg/dl (0.2-1.0); C Reactive Protein 1.21 mg/dl (0-0.5); Calcium 8.1 mg/dl (8.5-10.1); Creatinine Clr Calc Pharmacy 31.4 ml/min; Est GFR (African American) 39.8 ml/min; Est GFR (Non-African American) 34.4 ml/min; Globulin 2.8 gm/dl (2.5-4.0); Magnesium 1.5 mg/dl (1.7-2.4); Potassium 3.8 mmol/L (3.5-5.1); Total Protein 6.3 gm/dl (6.0-8.3)
[2022-09-01 07:39] LABS: Prothrombin Time 10.8 Seconds (9.0-12.0)
[2022-09-01] MEDS: MoRPHine SULFATE 2 MG/ML CARP IV PRN (07:48)
[2022-09-01] MEDS: PANTOprazole 40 MG in SYRINGE 0 ML IV SCH ×2 (08:03→20:44)
[2022-09-01] MEDS: dexAMETHasone 6 MG in SYRINGE 0 ML IV SCH (08:03)
--- NOTE | 2022-09-01 08:55 | Electrocardiogram Report ---
Test Reason : Blood Pressure : / mmHG Vent. Rate : 079 BPM Atrial Rate : 079 BPM P-R Int : 300 ms QRS Dur : 086 ms QT Int : 434 ms P-R-T Axes : 104 -39 071 degrees QTc Int : 497 ms Poor data quality, interpretation may be adversely affected Sinus rhythm with marked first degree A-V block Left axis deviation Low voltage QRS Possible Old Inferior infarct Old Anterior infarct Abnormal ECG No previous ECGs available Confirmed by Andrea Blanca ([id number]) on 09/01/2022 8:54:34 AM Referred By: REFERRED SELF Confirmed By:Andrea Blanca
[2022-09-01] MEDS ORDERED: LANTUS PER UNIT CHARGE SQ ONE (09:00)
[2022-09-01] MEDS: cefTRIAXone SODIUM 2,000 MG in DEXTROSE 5% 50 ML IV SCH (09:10)
--- NOTE | 2022-09-01 09:34 | Gastrointestinal Consultation ---
Date of Consultation September 01, 2022 Assessment & Plan (1) Gastroparesis: Difficult to know all that is going on as she cannot give me much helpful history. It does sound like she has gastroparesis and unfortunately there are no really good medications for gastroparesis. She had a trial of metoclopramide and apparently developed torticolis. This eliminates that as a medication she can use. Erythromycin has some positive effects on GI motility but usually in an IV preparation. The only thing we can do is treat her symptomatically with ondansetron as your are doing. Close management of her diabetes is helpful as well. I doubt active COVID is what set this off but it is possible. Usually this resolves on its own. I will follow with you. History of Present Illness Reason for Consultation: gastroparesis Attending Physician: Tom Reed MD History of Present Illness 82 year old female with diabetes who apparently carries the diagnosis of "gastroparesis". She is not really helpful as most of her answers are "I don't know". She also apparently saw a GI doc who put her on metoclopramide for the gastroparesis but the report in the chart says she developed torticolis. She doesn't know anything about that. She tells me she is always nauseated but the other night she started vomiting. She also had diarrhea with the vomiting. She denies prior surgery on her stomach. She tells me her diabetes is usually well controlled. She is positive for COVID Allergies Allergy/AdvReac Type Severity Reaction Status Date / Time oxycodone Allergy Unknown Verified 08/31/22 16:25 Home Medications Medication Instructions Recorded Confirmed Type acetaminophen 500 mg tablet 500 mg PO Q6 PRN Fever Or Pain 08/31/22 08/31/22 History acetaminophen 500 mg tablet 500 mg PO QPM 08/31/22 08/31/22 History atorvastatin 10 mg tablet 10 mg PO HS 08/31/22 08/31/22 History brimonidine 0.1 % eye drops 1 drp OPL BID 08/31/22 08/31/22 History (Alphagan P) cholecalciferol (vitamin D3) 50 2,000 unit PO AMHS 08/31/22 08/31/22 History mcg (2,000 unit) capsule dorzolamide 22.3 mg-timolol 6.8 1 drp OPL AMHS 08/31/22 08/31/22 History mg/mL eye drops furosemide 40 mg tablet 20 mg PO QAM 08/31/22 08/31/22 History hydralazine 25 mg tablet 50 mg PO AMHS 08/31/22 08/31/22 History insulin aspart U-100 100 unit/mL 1 - 3 unit subcut .WITH BREAKFAST 08/31/22 08/31/22 History (3 mL) subcutaneous pen (Novolog Flexpen U-100 Insulin aspart) insulin glargine 100 unit/mL (3 15 - 18 unit subcut .Q AFTERNOON & 08/31/22 08/31/22 History mL) subcutaneous pen (Basaglar HS KwikPen U-100 Insulin) labetalol 200 mg tablet 300 mg PO AMHS 08/31/22 08/31/22 History metoclopramide HCl 5 mg tablet 5 mg PO DAILYBB 08/31/22 08/31/22 History ondansetron HCl 4 mg tablet 4 mg PO Q8 PRN Nausea 08/31/22 08/31/22 History pantoprazole 40 mg tablet,delayed 40 mg PO HS 08/31/22 08/31/22 History release silver sulfadiazine 1 % topical 1 applic topical BID 08/31/22 08/31/22 History cream (SSD) travoprost 0.004 % eye drops 1 drp OPL QPM 08/31/22 08/31/22 History (Travatan Z) Patient History Social History Smoking Status: Former smoker Second Hand Exposure: No; Do You Dip or Chew Tobacco: No; Tobacco Cessation Education Requested by Patient: No Hx Alcohol Use: No Hx Substance Use: No Preferred Language: Citizen Of [place] Communication Ability: 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 Beliefs That Will Affect Care: None Current Living Situation: Family Current Living Situation Comment: lives with daughter Mily Other Information That Helps Us Care for You: No Feels Safe at Home: Yes Assistive Devices: Walker and Wheelchair Review of Systems Review of Systems: All systems reviewed & are unremarkable except as noted in HPI & below Physical Exam Constitutional: WD/WN, vitals as above no acute distress Eyes: PERRL, conjunctivae normal, anicteric sclerae ENMT: external ear and nose normal, oropharynx normal Neck: trachea midline, no thyromegaly Respiratory: normal respiratory effort, lungs clear to auscultation Cardiovascular: RRR, no murmur, no edema Gastrointestinal (Abdomen): normal bowel sounds, soft, nontender, no hepatosplenomegaly Musculoskeletal: Extremities: no cyanosis and no clubbing Skin: no rashes, warm and dry Neurologic: PERRL, EOMI, accommodation nl, no face palsy, no dysarthria Psychiatric: Orientation: alert and oriented x 3 Results & Data ([facility]) Vital Signs (Past 12 Hours) Vital Signs Temp Pulse Resp BP Pulse Ox O2 Del Method O2 Flow Rate 09/01/22 07:45 36.8 C 70 14 151/74 H 92 Nasal Cannula 3 09/01/22 05:30 120/66 09/01/22 04:39 36.3 C L 74 20 185/99 H 93 Nasal Cannula 3 Laboratory Results 09/01/22 09/01/22 09/01/22 Range/Units 08:10 06:10 06:10 WBC (4.8-10.8) K/ul RBC (3.93-5.22) M/uL Hgb (12.0-16.0) g/dl Hct (34.1-44.9) % MCV (80.0-100.0) fL MCH (25.0-34.0) pg MCHC (32.0-36.0) g/dL RDW Std Deviation (36.4-46.3) fL RDW Coeff of Maegan (11.5-14.5) % Plt Count (130-400) K/uL MPV (9.4-12.3) fL Immature Gran % (Auto) % Neut % (Auto) % Lymph % (Auto) % Tate % (Auto) % Eos % (Auto) % Baso % (Auto) % Neut # (Auto) (1.4-6.5) K/uL Lymph # (Auto) (1.2-3.4) K/uL Tate # (Auto) (0.24-0.82) K/uL Eos # (Auto) (0-0.50) K/uL Baso # (Auto) (0-0.2) K/uL Immature Gran # (Auto) (0.00-0.02) K/uL PT (9.0-12.0) Seconds INR (0.9-1.1) Sodium 136 (136-145) mmol/L Potassium 3.8 (3.5-5.1) mmol/L Chloride 104 (98-107) mmol/L Carbon Dioxide 21 (21-32) mmol/L Anion Gap 11 (3-11) BUN 26 H (6-23) mg/dl Creatinine 1.41 H (0.6-1.2) mg/dl Est Cr Clr Drug Dosing 31.4 Est GFR ( Amer) 39.8 ml/min Est GFR (Non-Af Amer) 34.4 ml/min BUN/Creatinine Ratio 18.4 (10-20) Glucose 198 H (70-99(Fasting)) mg/dl POC Glucose 199 H (70-99) mg/dl Estimat Average Glucose Hemoglobin A1c Calcium 8.1 L (8.5-10.1) mg/dl Phosphorus 3.0 (2.5-4.9) mg/dl Magnesium 1.5 L (1.7-2.4) mg/dl Iron (35-150) mcg/dl Unsaturated IBC (155-355) mcg/dl Ferritin (8-388) ng/ml Total Bilirubin 0.3 (0.2-1.0) mg/dl AST 37 (13-39) U/L ALT 13 (7-52) U/L Alkaline Phosphatase 79 (34-104) U/L C-Reactive Protein 1.21 H (0-0.5) mg/dl Total Protein 6.3 (6.0-8.3) gm/dl Albumin 3.5 (3.4-5.0) gm/dl Globulin 2.8 (2.5-4.0) gm/dl Albumin/Globulin Ratio 1.3 (0.9-2) Lipase (11-82) U/L Vitamin B12 Folate Procalcitonin < 0.05 (0-0.5) ng/ml Urine Color Urine Appearance (Clear) Urine pH (4.5-7.5) Ur Specific [place] (1.000-1.030) Urine Protein (Negative) Urine Glucose (UA) (Negative) Urine Ketones (Negative) Urine Blood (Negative) Urine Nitrite (Negative) Urine Bilirubin (Negative) Urine Urobilinogen (Negative) Ur Leukocyte Esterase (Negative) Urine WBC (Auto) (0-5) /hpf Urine RBC (Auto) (0-4) /hpf U Hyaline Cast (Auto) (0-5) /lpf U Epithel Cells (Auto) (0-5) /lpf Urine Bacteria (Auto) (Negative) SARS-CoV-2, RNA, NAAT (NEGATIVE) 09/01/22 09/01/22 09/01/22 Range/Units 06:10 06:10 06:10 WBC 6.05 (4.8-10.8) K/ul RBC 3.86 L (3.93-5.22) M/uL Hgb 10.2 L (12.0-16.0) g/dl Hct 30.4 L (34.1-44.9) % MCV 78.8 L (80.0-100.0) fL MCH 26.4 (25.0-34.0) pg MCHC 33.6 (32.0-36.0) g/dL RDW Std Deviation 41.7 (36.4-46.3) fL RDW Coeff of Maegan 14.6 H (11.5-14.5) % Plt Count 248 (130-400) K/uL MPV 11.4 (9.4-12.3) fL Immature Gran % (Auto) 0.2 % Neut % (Auto) 80.8 % Lymph % (Auto) 15.0 % Tate % (Auto) 4.0 % Eos % (Auto) 0.0 % Baso % (Auto) 0.0 % Neut # (Auto) 4.89 (1.4-6.5) K/uL Lymph # (Auto) 0.91 L (1.2-3.4) K/uL Tate # (Auto) 0.24 (0.24-0.82) K/uL Eos # (Auto) 0.00 (0-0.50) K/uL Baso # (Auto) 0.00 (0-0.2) K/uL Immature Gran # (Auto) 0.01 (0.00-0.02) K/uL PT 10.8 (9.0-12.0) Seconds INR 1.0 (0.9-1.1) Sodium (136-145) mmol/L Potassium (3.5-5.1) mmol/L Chloride (98-107) mmol/L Carbon Dioxide (21-32) mmol/L Anion Gap (3-11) BUN (6-23) mg/dl Creatinine (0.6-1.2) mg/dl Est Cr Clr Drug Dosing Est GFR ( Amer) ml/min Est GFR (Non-Af Amer) ml/min BUN/Creatinine Ratio (10-20) Glucose (70-99(Fasting)) mg/dl POC Glucose (70-99) mg/dl Estimat Average Glucose Pending Hemoglobin A1c Pending Calcium (8.5-10.1) mg/dl Phosphorus (2.5-4.9) mg/dl Magnesium (1.7-2.4) mg/dl Iron (35-150) mcg/dl Unsaturated IBC (155-355) mcg/dl Ferritin (8-388) ng/ml Total Bilirubin (0.2-1.0) mg/dl AST (13-39) U/L ALT (7-52) U/L Alkaline Phosphatase (34-104) U/L C-Reactive Protein (0-0.5) mg/dl Total Protein (6.0-8.3) gm/dl Albumin (3.4-5.0) gm/dl Globulin (2.5-4.0) gm/dl Albumin/Globulin Ratio (0.9-2) Lipase (11-82) U/L Vitamin B12 Folate Procalcitonin (0-0.5) ng/ml Urine Color Urine Appearance (Clear) Urine pH (4.5-7.5) Ur Specific [place] (1.000-1.030) Urine Protein (Negative) Urine Glucose (UA) (Negative) Urine Ketones (Negative) Urine Blood (Negative) Urine Nitrite (Negative) Urine Bilirubin (Negative) Urine Urobilinogen (Negative) Ur Leukocyte Esterase (Negative) Urine WBC (Auto) (0-5) /hpf Urine RBC (Auto) (0-4) /hpf U Hyaline Cast (Auto) (0-5) /lpf U Epithel Cells (Auto) (0-5) /lpf Urine Bacteria (Auto) (Negative) SARS-CoV-2, RNA, NAAT (NEGATIVE) 09/01/22 08/31/22 08/31/22 Range/Units 03:20 23:11 18:07 WBC (4.8-10.8) K/ul RBC (3.93-5.22) M/uL Hgb (12.0-16.0) g/dl Hct (34.1-44.9) % MCV (80.0-100.0) fL MCH (25.0-34.0) pg MCHC (32.0-36.0) g/dL RDW Std Deviation (36.4-46.3) fL RDW Coeff of Maegan (11.5-14.5) % Plt Count (130-400) K/uL MPV (9.4-12.3) fL Immature Gran % (Auto) % Neut % (Auto) % Lymph % (Auto) % Tate % (Auto) % Eos % (Auto) % Baso % (Auto) % Neut # (Auto) (1.4-6.5) K/uL Lymph # (Auto) (1.2-3.4) K/uL Tate # (Auto) (0.24-0.82) K/uL Eos # (Auto) (0-0.50) K/uL Baso # (Auto) (0-0.2) K/uL Immature Gran # (Auto) (0.00-0.02) K/uL PT (9.0-12.0) Seconds INR (0.9-1.1) Sodium (136-145) mmol/L Potassium (3.5-5.1) mmol/L Chloride (98-107) mmol/L Carbon Dioxide (21-32) mmol/L Anion Gap (3-11) BUN (6-23) mg/dl Creatinine (0.6-1.2) mg/dl Est Cr Clr Drug Dosing Est GFR ( Amer) ml/min Est GFR (Non-Af Amer) ml/min BUN/Creatinine Ratio (10-20) Glucose (70-99(Fasting)) mg/dl POC Glucose 208 H 203 H (70-99) mg/dl Estimat Average Glucose Hemoglobin A1c Calcium (8.5-10.1) mg/dl Phosphorus (2.5-4.9) mg/dl Magnesium (1.7-2.4) mg/dl Iron (35-150) mcg/dl Unsaturated IBC (155-355) mcg/dl Ferritin (8-388) ng/ml Total Bilirubin (0.2-1.0) mg/dl AST (13-39) U/L ALT (7-52) U/L Alkaline Phosphatase (34-104) U/L C-Reactive Protein (0-0.5) mg/dl Total Protein (6.0-8.3) gm/dl Albumin (3.4-5.0) gm/dl Globulin (2.5-4.0) gm/dl Albumin/Globulin Ratio (0.9-2) Lipase (11-82) U/L Vitamin B12 702 Folate 13.74 Procalcitonin (0-0.5) ng/ml Urine Color Urine Appearance (Clear) Urine pH (4.5-7.5) Ur Specific [place] (1.000-1.030) Urine Protein (Negative) Urine Glucose (UA) (Negative) Urine Ketones (Negative) Urine Blood (Negative) Urine Nitrite (Negative) Urine Bilirubin (Negative) Urine Urobilinogen (Negative) Ur Leukocyte Esterase (Negative) Urine WBC (Auto) (0-5) /hpf Urine RBC (Auto) (0-4) /hpf U Hyaline Cast (Auto) (0-5) /lpf U Epithel Cells (Auto) (0-5) /lpf Urine Bacteria (Auto) (Negative) SARS-CoV-2, RNA, NAAT (NEGATIVE) 08/31/22 08/31/22 08/31/22 Range/Units 16:44 13:33 12:50 WBC (4.8-10.8) K/ul RBC (3.93-5.22) M/uL Hgb (12.0-16.0) g/dl Hct (34.1-44.9) % MCV (80.0-100.0) fL MCH (25.0-34.0) pg MCHC (32.0-36.0) g/dL RDW Std Deviation (36.4-46.3) fL RDW Coeff of Maegan (11.5-14.5) % Plt Count (130-400) K/uL MPV (9.4-12.3) fL Immature Gran % (Auto) % Neut % (Auto) % Lymph % (Auto) % Tate % (Auto) % Eos % (Auto) % Baso % (Auto) % Neut # (Auto) (1.4-6.5) K/uL Lymph # (Auto) (1.2-3.4) K/uL Tate # (Auto) (0.24-0.82) K/uL Eos # (Auto) (0-0.50) K/uL Baso # (Auto) (0-0.2) K/uL Immature Gran # (Auto) (0.00-0.02) K/uL PT (9.0-12.0) Seconds INR (0.9-1.1) Sodium (136-145) mmol/L Potassium (3.5-5.1) mmol/L Chloride (98-107) mmol/L Carbon Dioxide (21-32) mmol/L Anion Gap (3-11) BUN (6-23) mg/dl Creatinine (0.6-1.2) mg/dl Est Cr Clr Drug Dosing Est GFR ( Amer) ml/min Est GFR (Non-Af Amer) ml/min BUN/Creatinine Ratio (10-20) Glucose (70-99(Fasting)) mg/dl POC Glucose 239 H (70-99) mg/dl Estimat Average Glucose Hemoglobin A1c Calcium (8.5-10.1) mg/dl Phosphorus (2.5-4.9) mg/dl Magnesium (1.7-2.4) mg/dl Iron (35-150) mcg/dl Unsaturated IBC (155-355) mcg/dl Ferritin (8-388) ng/ml Total Bilirubin (0.2-1.0) mg/dl AST (13-39) U/L ALT (7-52) U/L Alkaline Phosphatase (34-104) U/L C-Reactive Protein (0-0.5) mg/dl Total Protein (6.0-8.3) gm/dl Albumin (3.4-5.0) gm/dl Globulin (2.5-4.0) gm/dl Albumin/Globulin Ratio (0.9-2) Lipase (11-82) U/L Vitamin B12 Cancelled Folate Cancelled Procalcitonin (0-0.5) ng/ml Urine Color Yellow Urine Appearance Cloudy A (Clear) Urine pH 6.0 (4.5-7.5) Ur Specific [place] 1.013 (1.000-1.030) Urine Protein 3+ H (Negative) Urine Glucose (UA) 2+ H (Negative) Urine Ketones 1+ H (Negative) Urine Blood Trace H (Negative) Urine Nitrite Negative (Negative) Urine Bilirubin Negative (Negative) Urine Urobilinogen Negative (Negative) Ur Leukocyte Esterase Trace H (Negative) Urine WBC (Auto) >30 H (0-5) /hpf Urine RBC (Auto) 0-4 (0-4) /hpf U Hyaline Cast (Auto) 1-5 (0-5) /lpf U Epithel Cells (Auto) >30 H (0-5) /lpf Urine Bacteria (Auto) 4+ H (Negative) SARS-CoV-2, RNA, NAAT (NEGATIVE) 08/31/22 08/31/22 08/31/22 Range/Units 12:50 12:50 12:50 WBC (4.8-10.8) K/ul RBC (3.93-5.22) M/uL Hgb (12.0-16.0) g/dl Hct (34.1-44.9) % MCV (80.0-100.0) fL MCH (25.0-34.0) pg MCHC (32.0-36.0) g/dL RDW Std Deviation (36.4-46.3) fL RDW Coeff of Maegan (11.5-14.5) % Plt Count (130-400) K/uL MPV (9.4-12.3) fL Immature Gran % (Auto) % Neut % (Auto) % Lymph % (Auto) % Tate % (Auto) % Eos % (Auto) % Baso % (Auto) % Neut # (Auto) (1.4-6.5) K/uL Lymph # (Auto) (1.2-3.4) K/uL Tate # (Auto) (0.24-0.82) K/uL Eos # (Auto) (0-0.50) K/uL Baso # (Auto) (0-0.2) K/uL Immature Gran # (Auto) (0.00-0.02) K/uL PT (9.0-12.0) Seconds INR (0.9-1.1) Sodium (136-145) mmol/L Potassium (3.5-5.1) mmol/L Chloride (98-107) mmol/L Carbon Dioxide (21-32) mmol/L Anion Gap (3-11) BUN (6-23) mg/dl Creatinine (0.6-1.2) mg/dl Est Cr Clr Drug Dosing Est GFR ( Amer) ml/min Est GFR (Non-Af Amer) ml/min BUN/Creatinine Ratio (10-20) Glucose (70-99(Fasting)) mg/dl POC Glucose (70-99) mg/dl Estimat Average Glucose Pending Hemoglobin A1c Pending Calcium (8.5-10.1) mg/dl Phosphorus (2.5-4.9) mg/dl Magnesium (1.7-2.4) mg/dl Iron 30 L (35-150) mcg/dl Unsaturated IBC 297 (155-355) mcg/dl Ferritin 44.2 (8-388) ng/ml Total Bilirubin (0.2-1.0) mg/dl AST (13-39) U/L ALT (7-52) U/L Alkaline Phosphatase (34-104) U/L C-Reactive Protein (0-0.5) mg/dl Total Protein (6.0-8.3) gm/dl Albumin (3.4-5.0) gm/dl Globulin (2.5-4.0) gm/dl Albumin/Globulin Ratio (0.9-2) Lipase (11-82) U/L Vitamin B12 Folate Procalcitonin (0-0.5) ng/ml Urine Color Urine Appearance (Clear) Urine pH (4.5-7.5) Ur Specific [place] (1.000-1.030) Urine Protein (Negative) Urine Glucose (UA) (Negative) Urine Ketones (Negative) Urine Blood (Negative) Urine Nitrite (Negative) Urine Bilirubin (Negative) Urine Urobilinogen (Negative) Ur Leukocyte Esterase (Negative) Urine WBC (Auto) (0-5) /hpf Urine RBC (Auto) (0-4) /hpf U Hyaline Cast (Auto) (0-5) /lpf U Epithel Cells (Auto) (0-5) /lpf Urine Bacteria (Auto) (Negative) SARS-CoV-2, RNA, NAAT POSITIVE A* (NEGATIVE) 08/31/22 08/31/22 Range/Units 12:50 12:50 WBC 5.62 (4.8-10.8) K/ul RBC 4.16 (3.93-5.22) M/uL Hgb 10.9 L (12.0-16.0) g/dl Hct 32.8 L (34.1-44.9) % MCV 78.8 L (80.0-100.0) fL MCH 26.2 (25.0-34.0) pg MCHC 33.2 (32.0-36.0) g/dL RDW Std Deviation 41.2 (36.4-46.3) fL RDW Coeff of Maegan 14.6 H (11.5-14.5) % Plt Count 200 (130-400) K/uL MPV 11.4 (9.4-12.3) fL Immature Gran % (Auto) 0.2 % Neut % (Auto) 71.7 % Lymph % (Auto) 23.3 % Tate % (Auto) 4.4 % Eos % (Auto) 0.2 % Baso % (Auto) 0.2 % Neut # (Auto) 4.03 (1.4-6.5) K/uL Lymph # (Auto) 1.31 (1.2-3.4) K/uL Tate # (Auto) 0.25 (0.24-0.82) K/uL Eos # (Auto) 0.01 (0-0.50) K/uL Baso # (Auto) 0.01 (0-0.2) K/uL Immature Gran # (Auto) 0.01 (0.00-0.02) K/uL PT (9.0-12.0) Seconds INR (0.9-1.1) Sodium 134 L (136-145) mmol/L Potassium 3.9 (3.5-5.1) mmol/L Chloride 99 (98-107) mmol/L Carbon Dioxide 22 (21-32) mmol/L Anion Gap 13 H (3-11) BUN 24 H (6-23) mg/dl Creatinine 1.37 H (0.6-1.2) mg/dl Est Cr Clr Drug Dosing Not Reportable Est GFR ( Amer) 41.2 ml/min Est GFR (Non-Af Amer) 35.6 ml/min BUN/Creatinine Ratio 17.5 (10-20) Glucose 217 H (70-99(Fasting)) mg/dl POC Glucose (70-99) mg/dl Estimat Average Glucose Hemoglobin A1c Calcium 8.9 (8.5-10.1) mg/dl Phosphorus (2.5-4.9) mg/dl Magnesium (1.7-2.4) mg/dl Iron (35-150) mcg/dl Unsaturated IBC (155-355) mcg/dl Ferritin (8-388) ng/ml Total Bilirubin 0.4 (0.2-1.0) mg/dl AST 23 (13-39) U/L ALT 14 (7-52) U/L Alkaline Phosphatase 92 (34-104) U/L C-Reactive Protein (0-0.5) mg/dl Total Protein 7.5 (6.0-8.3) gm/dl Albumin 4.1 (3.4-5.0) gm/dl Globulin 3.4 (2.5-4.0) gm/dl Albumin/Globulin Ratio 1.2 (0.9-2) Lipase 12 (11-82) U/L Vitamin B12 Folate Procalcitonin (0-0.5) ng/ml Urine Color Urine Appearance (Clear) Urine pH (4.5-7.5) Ur Specific [place] (1.000-1.030) Urine Protein (Negative) Urine Glucose (UA) (Negative) Urine Ketones (Negative) Urine Blood (Negative) Urine Nitrite (Negative) Urine Bilirubin (Negative) Urine Urobilinogen (Negative) Ur Leukocyte Esterase (Negative) Urine WBC (Auto) (0-5) /hpf Urine RBC (Auto) (0-4) /hpf U Hyaline Cast (Auto) (0-5) /lpf U Epithel Cells (Auto) (0-5) /lpf Urine Bacteria (Auto) (Negative) SARS-CoV-2, RNA, NAAT (NEGATIVE) Diagnostic Findings Abdomen/Pelvis CT 08/31/22 12:[address] WITH IV CONTRAST CT DOSE: 641.61 mGy.cm HISTORY: Nausea. Vomiting. TECHNIQUE: Multiaxial CT images of the abdomen and pelvis were performed following the use of intravenous contrast. A dose lowering technique was utilized adhering to the principles of ALARA. COMPARISON STUDY: None. FINDINGS: Mild interlobular septal thickening at the lung bases consistent with pulmonary edema. Fusion of the L4-5 vertebral bodies. There are severe degenerative disc disease at L3-L4 and L5-S1. No pneumoperitoneum. No pneumatosis. No acute fractures within the visualized osseous structures. Mild circumferential thickening of the distal esophagus with a small hiatus hernia. Small fat-containing bilateral inguinal hernias. There is a 5.0 x 2.6 cm hypodense tubular shaped lesion within the right lower quadrant. This appears to be contiguous with the tip of the appendix as well as adjacent to the right ovary. Therefore, this could represent an appendiceal mucocele or possibly an ovarian lesion. Regardless, this would be considered pathologic. No surrounding inflammatory change to suggest an acute process. The bladder, uterus, left ovary are within normal limits. No pelvic free fluid. No bowel wall thickening or obstruction. No retroperitoneal lymphadenopathy. Calcified plaque within the normal caliber abdominal aorta. The main portal vein is patent. The gallbladder, spleen, and adrenal glands unremarkable. Normal pancreas. A 1 cm hypodense lesion within the left hepatic lobe. This favors a cyst. There is moderate bilateral perinephric edema. Small linear areas of fat density within the left kidney which may represent areas of cortical scarring or small angiomyolipomas. No ureteral stones. No hydronephrosis. The majority the colon is decompressed. IMPRESSION: 1. Mild interlobular septal thickening within the lung bases consistent with mild pulmonary edema. No pleural effusions. 2. No bowel wall thickening or obstruction. 3. Moderate bilateral perinephric edema. This is likely chronic. Recommend correlation with urinalysis to exclude the possibility of a superimposed infection. 4. There is a 5.0 x 2.6 cm hypodense tubular shaped lesion within the right lower quadrant. This appears to be contiguous with the tip of the appendix as well as adjacent to the right ovary. Therefore, this could represent an appen diceal mucocele or possibly an ovarian lesion. Regardless, this would be considered pathologic and nonemergent surgical consultation recommended. 5. Additional findings as described above. ACT 112: Negative or not required by law. Electronically signed by: Chester Jalloh M.D. 08/31/2022 3:20 PM Chest X-Ray 08/31/22 12:10 XR chest 1V portable HISTORY: cough COMPARISON: None. FINDINGS: The cardiac silhouette is top normal in size. Mild central bronchial wall thickening which is likely chronic. No new focal lung consolidations to suggest a pneumonia. No evidence for pulmonary edema. There is eventration of the right hemidiaphragm. IMPRESSION: No acute process. ACT 112: Negative or not required by law. Electronically signed by: Chester Jalloh M.D. 08/31/2022 12:[address] 08/31/22 16:[address] DOSE: 1498.35 mGy.cm HISTORY: seizure TECHNIQUE: Multiaxial CT images of the head were performed without the use of intravenous contrast. Automated exposure control was utilized for this study. A dose lowering technique was utilized adhering to the principles of ALARA. Comparison: None. Findings: There is residual contrast within the brain from the recent abdomen and pelvis CT. Mild mucosal thickening within the paranasal sinuses. The mastoid air cells are clear. The calvarium and skull base are intact. There is no mass, hematoma, midline shift, acute infarct. White matter hypodensity is nonspecific but suggestive of microvascular ischemic change. The ventricles and sulci demonstrate mild age-related involutional changes. 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 Impression: Residual contrast within the brain from the recent abdomen and pelvis CT. However, no definite acute intracranial abnormality. ACT 112: Negative or not required by law. Electronically signed by: Chester Jalloh M.D. 08/31/2022 5:49 PM
[2022-09-01] MEDS: MAGNESIUM SULFATE / D5W 1 GM/100 ML BAG IV SCH ×2 (10:07→12:10)
[2022-09-01] MEDS: LACTATED RINGER'S 1,000 ML IV SCH ×2 (10:10→20:30)
[2022-09-01] MEDS: DORZOLAMIDE/TIMOLOL 22.3/6.8MG/ML 10 ML BTL OPL SCH ×2 (10:12→20:41)
[2022-09-01] MEDS ORDERED: HYDROmorphone INJ 1 MG/ML SYRINGE IV PRN (10:19)
[2022-09-01] MEDS ORDERED: PROCHLORPERAZINE 5 MG in SYRINGE 4 ML IV PRN (10:24)
--- NOTE | 2022-09-01 11:47 | Hospitalist Progress Note ---
Date of Service September 01, 2022 Assessment & Plan (1) Gastroparesis: Plan: - persistent n/v and abdominal pain in the setting of diabetes - reports recent use of metoclopramide with ?torticollis side effects? - will avoid metoclopramide for now - NPO - IVF - IV erythromycin - GI consult - symptomatic treatment - insulin for DM and good BG control in setting of gastroparesis (2) DM2 (diabetes mellitus, type 2): Plan: - A1c pending - on lantus and prandials - will continue here - diabetic diet when tolerating PO - pharmacy insulin management (3) HTN (hypertension): Plan: - continue home medications - IV prns as needed if not tolerating PO (4) COVID-19: Plan: - mild symptoms of sore throat and rhinorrhea - now resolved - persistent dry cough - requiring 3L O2 NC - continue dexamethasone x10 days and remdesivir x5 days - oxygen as needed to keep SpO2 >92% (5) Anemia: Plan: - ghb 10.9 on admission - unclear baseline - no bleeding noted - iron studies, ferritin, b12, folate - likely chronic disease - monitor for now (6) MARY KATE (acute kidney injury): Plan: - likely in the setting of decreased po intake and n/v/d - IVF in ed and will continue - trend Cr - no change in Cr, possible could be baseline without previous - avoid nephrotoxic meds (7) Hyponatremia: Plan: - likely from decreased po - IVF as above - monitor Na in AM labs - resolved (8) UTI (urinary tract infection): Plan: - positive UA, positive symptoms of frequency - will treat with IVF - ceftriaxone for 5 days (2/5) Plan DVT ppx: heparin SC Code Status: Full Code Dispo: med/surg Tom Reed MD [facility] Medicine Admission and Anticipated Discharge Date Admission Date: August 31, 2022 Subjective Patient with DM admitted with gastroparesis most likely and COVID requiring oxygen. Started on erythromycin, dexamethasone, remdesivir, IVF. GI consulted and recommend symptomatic treatment. Surgery consulted for abdominal lesion, Electrical Test Engineer consulted for the same. NEurolgoy consulted for ?seizure vs metoclopromide adverse effect of torticollis. Patient in severe abdominal pain, nausea. Denies diarrhea, chest pain, shortness of breath. still having cough with occasional yellow sputum. Review of Systems Review of Systems: All systems reviewed & are unremarkable except as noted in Subjective Physical Exam 2 Physical Exam: GENERAL: sleepy, lying in bed, alert when spoken to, chronically ill-appearing, disheveled EYE EXAM: injected conjunctiva. OROPHARYNX: mucous membranes are dry NECK: supple, no nuchal rigidity, no adenopathy, non-tender LUNGS: Clear to auscultation. Normal chest wall mechanics HEART: no murmurs, S1 normal and S2 normal ABDOMEN: abdomen soft, tender to palpation in epigastric region, hypoactive bowel sounds, no masses, no rebound or guarding. UPPER EXTREMITIES: upper extremities are grossly normal. LOWER EXTREMITIES: No pitting edema. NEURO EXAM: Normal sensorium, cranial nerves II-XII grossly intact, normal speech, no gross weakness of arms, no gross weakness of legs. Results & Data Results & Data ([facility]) Vital Signs (Past 12 Hours) Vital Signs Temp Pulse Resp BP Pulse Ox O2 Del Method O2 Flow Rate 09/01/22 10:50 92 Nasal Cannula 5 09/01/22 07:45 36.8 C 70 14 151/74 H 92 Nasal Cannula 3 09/01/22 05:30 120/66 09/01/22 04:39 36.3 C L 74 20 185/99 H 93 Nasal Cannula 3 Diagnostic Findings Laboratory Results WBC 6.05 K/ul (4.8-10.8) 09/01/22 06:10 RBC 3.86 M/uL (3.93-5.22) L 09/01/22 06:10 Hgb 10.2 g/dl (12.0-16.0) L 09/01/22 06:10 Hct 30.4 % (34.1-44.9) L 09/01/22 06:10 MCV 78.8 fL (80.0-100.0) L 09/01/22 06:10 MCH 26.4 pg (25.0-34.0) 09/01/22 06:10 MCHC 33.6 g/dL (32.0-36.0) 09/01/22 06:10 RDW Std Deviation 41.7 fL (36.4-46.3) 09/01/22 06:10 RDW Coeff of Maegan 14.6 % (11.5-14.5) H 09/01/22 06:10 Plt Count 248 K/uL (130-400) 09/01/22 06:10 MPV 11.4 fL (9.4-12.3) 09/01/22 06:10 Immature Gran % (Auto) 0.2 % 09/01/22 06:10 Neut % (Auto) 80.8 % 09/01/22 06:10 Lymph % (Auto) 15.0 % 09/01/22 06:10 Barton % (Auto) 4.0 % 09/01/22 06:10 Eos % (Auto) 0.0 % 09/01/22 06:10 Baso % (Auto) 0.0 % 09/01/22 06:10 Neut # (Auto) 4.89 K/uL (1.4-6.5) 09/01/22 06:10 Lymph # (Auto) 0.91 K/uL (1.2-3.4) L 09/01/22 06:10 Barton # (Auto) 0.24 K/uL (0.24-0.82) 09/01/22 06:10 Eos # (Auto) 0.00 K/uL (0-0.50) 09/01/22 06:10 Baso # (Auto) 0.00 K/uL (0-0.2) 09/01/22 06:10 Immature Gran # (Auto) 0.01 K/uL (0.00-0.02) 09/01/22 06:10 PT 10.8 Seconds (9.0-12.0) 09/01/22 06:10 INR 1.0 (0.9-1.1) 09/01/22 06:10 Sodium 136 mmol/L (136-145) 09/01/22 06:10 Potassium 3.8 mmol/L (3.5-5.1) 09/01/22 06:10 Chloride 104 mmol/L (98-107) 09/01/22 06:10 Carbon Dioxide 21 mmol/L (21-32) 09/01/22 06:10 Anion Gap 11 (3-11) 09/01/22 06:10 BUN 26 mg/dl (6-23) H 09/01/22 06:10 Creatinine 1.41 mg/dl (0.6-1.2) H 09/01/22 06:10 Est Cr Clr Drug Dosing 31.4 ml/min 09/01/22 06:10 Est GFR ( Amer) 39.8 ml/min 09/01/22 06:10 Est GFR (Non-Af Amer) 34.4 ml/min 09/01/22 06:10 BUN/Creatinine Ratio 18.4 (10-20) 09/01/22 06:10 Glucose 198 mg/dl (70-99(Fasting)) H 09/01/22 06:10 POC Glucose 199 mg/dl (70-99) H 09/01/22 08:10 Calcium 8.1 mg/dl (8.5-10.1) L 09/01/22 06:10 Phosphorus 3.0 mg/dl (2.5-4.9) 09/01/22 06:10 Magnesium 1.5 mg/dl (1.7-2.4) L 09/01/22 06:10 Iron 30 mcg/dl (35-150) L 08/31/22 12:50 Unsaturated IBC 297 mcg/dl (155-355) 08/31/22 12:50 Ferritin 44.2 ng/ml (8-388) 08/31/22 12:50 Total Bilirubin 0.3 mg/dl (0.2-1.0) 09/01/22 06:10 AST 37 U/L (13-39) 09/01/22 06:10 ALT 13 U/L (7-52) 09/01/22 06:10 Alkaline Phosphatase 79 U/L (34-104) 09/01/22 06:10 C-Reactive Protein 1.21 mg/dl (0-0.5) H 09/01/22 06:10 Total Protein 6.3 gm/dl (6.0-8.3) 09/01/22 06:10 Albumin 3.5 gm/dl (3.4-5.0) 09/01/22 06:10 Globulin 2.8 gm/dl (2.5-4.0) 09/01/22 06:10 Albumin/Globulin Ratio 1.3 (0.9-2) 09/01/22 06:10 Lipase 12 U/L (11-82) 08/31/22 12:50 Vitamin B12 702 pg/ml (180-914) 08/31/22 18:07 Folate 13.74 ng/ml (>5.38) 08/31/22 18:07 Procalcitonin < 0.05 ng/ml (0-0.5) 09/01/22 06:10 Urine Color Yellow 08/31/22 13: Urine Appearance Cloudy (Clear) A 08/31/22 13:33 Urine pH 6.0 (4.5-7.5) 08/31/22 13:33 Ur Specific [place] 1.013 (1.000-1.030) 08/31/22 13:33 Urine Protein 3+ (Negative) H 08/31/22 13:33 Urine Glucose (UA) 2+ (Negative) H 08/31/22 13:33 Urine Ketones 1+ (Negative) H 08/31/22 13: Urine Blood Trace (Negative) H 08/31/22 13:33 Urine Nitrite Negative (Negative) 08/31/22 13: Urine Bilirubin Negative (Negative) 08/31/22 13:33 Urine Urobilinogen Negative (Negative) 08/31/22 13:33 Ur Leukocyte Esterase Trace (Negative) H 08/31/22 13:33 Urine WBC (Auto) >30 /hpf (0-5) H 08/31/22 13:33 Urine RBC (Auto) 0-4 /hpf (0-4) 08/31/22 13:33 U Hyaline Cast (Auto) 1-5 /lpf (0-5) 08/31/22 13:33 U Epithel Cells (Auto) >30 /lpf (0-5) H 08/31/22 13:33 Urine Bacteria (Auto) 4+ (Negative) H 08/31/22 13:33 SARS-CoV-2, RNA, NAAT POSITIVE (NEGATIVE) A* 08/31/22 12:50 Impressions Abdomen/Pelvis CT 08/31/22 12:[address] WITH IV CONTRAST CT DOSE: 641.61 mGy.cm HISTORY: Nausea. Vomiting. TECHNIQUE: Multiaxial CT images of the abdomen and pelvis were performed following the use of intravenous contrast. A dose lowering technique was utilized adhering to the principles of ALARA. COMPARISON STUDY: None. FINDINGS: Mild interlobular septal thickening at the lung bases consistent with pulmonary edema. Fusion of the L4-5 vertebral bodies. There are severe degenerative disc disease at L3-L4 and L5-S1. No pneumoperitoneum. No pneumatosis. No acute fractures within the visualized osseous structures. Mild circumferential thickening of the distal esophagus with a small hiatus hernia. Small fat-containing bilateral inguinal hernias. There is a 5.0 x 2.6 cm hypodense tubular shaped lesion within the right lower quadrant. This appears to be contiguous with the tip of the appendix as well as adjacent to the right ovary. Therefore, this could represent an appendiceal mucocele or possibly an ovarian lesion. Regardless, this would be considered pathologic. No surrounding inflammatory change to suggest an acute process. The bladder, uterus, left ovary are within normal limits. No pelvic free fluid. No bowel wall thickening or obstruction. No retroperitoneal lymphadenopathy. Calcified plaque within the normal caliber abdominal aorta. The main portal vein is patent. The gallbladder, spleen, and adrenal glands unremarkable. Normal pancreas. A 1 cm hypodense lesion within the left hepatic lobe. This favors a cyst. There is moderate bilateral perinephric edema. Small linear areas of fat density within the left kidney which may represent areas of cortical scarring or small angiomyolipomas. No ureteral stones. No hydronephrosis. The majority the colon is decompressed. IMPRESSION: 1. Mild interlobular septal thickening within the lung bases consistent with mild pulmonary edema. No pleural effusions. 2. No bowel wall thickening or obstruction. 3. Moderate bilateral perinephric edema. This is likely chronic. Recommend correlation with urinalysis to exclude the possibility of a superimposed infection. 4. There is a 5.0 x 2.6 cm hypodense tubular shaped lesion within the right lower quadrant. This appears to be contiguous with the tip of the appendix as well as adjacent to the right ovary. Therefore, this could represent an appendiceal mucocele or possibly an ovarian lesion. Regardless, this would be considered pathologic and nonemergent surgical consultation recommended. 5. Additional findings as described above. ACT 112: Negative or not required by law. Electronically signed by: Chester Jalloh M.D. 08/31/2022 3:20 PM Chest X-Ray 08/31/22 12:10 XR chest 1V portable HISTORY: cough COMPARISON: None. FINDINGS: The cardiac silhouette is top normal in size. Mild central bronchial wall thickening which is likely chronic. No new focal lung consolidations to suggest a pneumonia. No evidence for pulmonary edema. There is eventration of the right hemidiaphragm. IMPRESSION: No acute process. ACT 112: Negative or not required by law. Electronically signed by: Chester Jalloh M.D. 08/31/2022 12:[address] 08/31/22 16:[address] DOSE: 1498.35 mGy.cm HISTORY: seizure TECHNIQUE: Multiaxial CT images of the head were performed without the use of intravenous contrast. Automated exposure control was utilized for this study. A dose lowering technique was utilized adhering to the principles of ALARA. Comparison: None. Findings: There is residual contrast within the brain from the recent abdomen and pelvis CT. Mild mucosal thickening within the paranasal sinuses. The mastoid air cells are clear. The calvarium and skull base are intact. There is no mass, hematoma, midline shift, acute infarct. White matter hypodensity is nonspecific but suggestive of microvascular ischemic change. The ventricles and sulci demonstrate mild age-related involutional changes. 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 Impression: Residual contrast within the brain from the recent abdomen and pelvis CT. However, no definite acute intracranial abnormality. ACT 112: Negative or not required by law. Electronically signed by: Chester Jalloh M.D. 08/31/2022 5:49 PM Medications Administered Current Inpatient Medications Acetaminophen (Acetaminophen 325 Mg Tab) 650 mg PO Q4H PRN PRN Reason: Pain or Fever Stop: 09/30/22 15:48 Atorvastatin Calcium (Atorvastatin 10 Mg Tab) 10 mg PO HS ERIN Stop: 09/30/22 20:59 Last Admin: 08/31/22 23:05 Dose: Not Given Dextrose (Dextrose 50% 50 Ml Syringe) 25 - 50 ml IV UD PRN; Protocol PRN Reason: Hypoglycemia Protocol Stop: 09/30/22 15:52 Dorzolamide/Timolol (Dorzolamide/Timolol 22.3/6.8mg/Ml 10 Ml Btl) 1 drops OPL [facility] ERIN Stop: 09/30/22 20:59 Last Admin: 09/01/22 10:12 Dose: 1 drops Glucagon (Glucagon For Inj 1 Mg Vial) 1 mg SQ UD PRN; Protocol PRN Reason: Hypoglycemia Protocol Stop: 09/30/22 15:52 Glucose (Glucose 40% Gel 15 Gm Tube) 15 - 30 gm PO UD PRN; Protocol PRN Reason: Hypoglycemia Protocol Stop: 09/30/22 15:52 Glucose (Glucose 10 Tab/Tube) 4 - 8 tab PO UD PRN; Protocol PRN Reason: Hypoglycemia Treatment Stop: 09/30/22 15:52 Heparin Sodium (Porcine) (Heparin Sod 5,000 Unit/0.5 Ml Vial) 5,000 units SQ Q8 ERIN Stop: 09/30/22 21:59 Last Admin: 08/31/22 23:07 Dose: Not Given Hydralazine HCl (Hydralazine Hcl 20 Mg/Ml Vial) 20 mg IV Q6 PRN PRN Reason: SBP >180 Stop: 09/30/22 19:00 Last Admin: 09/01/22 04:54 Dose: 20 mg Hydralazine HCl (Hydralazine Tab 50 Mg Tab) 50 mg PO [facility] ERIN Stop: 09/30/22 20:59 Last Admin: 08/31/22 23:06 Dose: Not Given Hydromorphone HCl (Hydromorphone Inj 1 Mg/Ml Syringe) 1 mg IV Q6H PRN PRN Reason: Pain Stop: 09/15/22 10:18 Last Admin: 09/01/22 10:45 Dose: 1 mg Lactated Ringer's (Lr) 1,000 mls @ 100 mls/hr IV .Q10H ERIN Stop: 09/01/22 22:44 Last Admin: 09/01/22 10:10 Dose: 100 mls/hr Erythromycin Lactobionate 250 (mg/ Sodium Chloride) 255 mls @ 250 mls/hr IV Q8 ERIN Stop: 09/04/22 21:59 Last Infusion: 09/01/22 07:45 Dose: Infused Ceftriaxone Sodium 2,000 mg/ (Dextrose) 70 mls @ 100 mls/hr IV DAILY ERIN; Protocol Stop: 09/05/22 16:44 Last Infusion: 09/01/22 10:05 Dose: Infused Pantoprazole Sodium 40 mg/ (Syringe) 10 mls @ 5 mls/min IV DAILY ERIN Stop: 09/30/22 19:50 Last Admin: 09/01/22 08:03 Dose: 5 mls/min Remdesivir 100 mg/ Sodium (Chloride) 250 mls @ 250 mls/hr IV Q24H ERIN Stop: 09/04/22 20:59 Dexamethasone 6 mg/ Syringe 1.5 mls @ 1 mls/min IV DAILY [facility] Stop: 09/10/22 21:34 Last Admin: 09/01/22 08:03 Dose: 1 mls/min Magnesium Sulfate/Dextrose (Magnesium Sulfate / D5w) 1 gm in 100 mls @ 50 mls/ hr IV Q2H ERIN Stop: 09/01/22 11:59 Last Admin: 09/01/22 10:07 Dose: 50 mls/hr Prochlorperazine 5 mg/ Syringe 5 mls @ 5 mls/min IV Q6H PRN PRN Reason: Nausea And Vomiting Stop: 10/01/22 10:23 Last Admin: 09/01/22 10:48 Dose: 5 mls/min Insulin Aspart (Insulin Aspart Per Unit) 0 units SC Q4 [facility]; Protocol Stop: 10/01/22 03:29 Last Admin: 09/01/22 08:51 Dose: 3 units Insulin Glargine (Lantus Per Unit Charge) 0 units SQ BID [facility]; Protocol Stop: 09/30/22 20:59 Last Admin: 09/01/22 00:14 Dose: 30 units Labetalol HCl (Labetalol Hcl 300 Mg Tab) 300 mg PO [facility] Stop: 09/30/22 20:59 Last Admin: 08/31/22 23:06 Dose: Not Given Miscellaneous (Carbohydrates For Hypoglycemia ) 15 - 30 gm PO UD PRN PRN Reason: Hypoglycemia Protocol Stop: 09/30/22 15:52 Miscellaneous (Brimonidine [Alphagan P] 0.1 % --Order Awaiting Action) 1 each N/A QS [facility] Stop: 10/01/22 00:00 Last Admin: 09/01/22 09:18 Dose: Not Given Miscellaneous Information (Pharmacy Glycemic Mgmt Consult) 1 each N/A UD PRN PRN Reason: Consult Stop: 09/30/22 15:52 Morphine Sulfate (Morphine Sulfate 2 Mg/Ml Carp) 2 mg IV Q4 PRN PRN Reason: Pain Stop: 09/14/22 17:21 Last Admin: 09/01/22 07:48 Dose: 2 mg Ondansetron HCl (Ondansetron Inj 2 Mg/Ml 2 Ml Vial) 4 mg IV Q6H PRN PRN Reason: Nausea Stop: 09/30/22 15:48 Last Admin: 09/01/22 07:48 Dose: 4 mg Travoprost (Travoprost Z 0.004% Oph Soln 2.5 Ml Btl) 1 drops OPL QPM [facility] Stop: 09/30/22 20:59 Last Admin: 08/31/22 22:43 Dose: 1 drops Vitamin D (Cholecalciferol 1,000 Units 25 Mcg Tab) 2,000 units PO [facility] ERIN Stop: 09/30/22 20:59 Last Admin: 08/31/22 23:06 Dose: Not Given
[2022-09-01] MEDS: LABETALOL HCL 300 MG TAB PO SCH ×2 (12:10→20:41)
[2022-09-01] MEDS: hydrALAZINE TAB 50 MG TAB PO SCH ×2 (12:10→20:41)
[2022-09-01] MEDS: CHOLECALCIFEROL 1,000 UNITS 25 MCG TAB PO SCH ×2 (12:10→20:41)
[2022-09-01] MEDS ORDERED: Nursing to Pharmacy Communication SCH (13:15)
--- NOTE | 2022-09-01 13:52 | Pharmacy Report ---
Pharmacy Glycemic Short Note 2 - Date of Service September 01, 2022 - Glycemic Short BSG Results (Last 24 hours): 08/31/22 08/31/22 09/01/22 16:44 23:11 03:20 Glucose POC Glucose 239 H 203 H 208 H 09/01/22 09/01/22 09/01/22 06:10 08:10 12:45 Glucose 198 H POC Glucose 199 H 184 H OUTPATIENT ANTIDIABETIC REGIMEN: * Lantus 35 units daily + Lantus 30 units HS * HbA1C currently unknown ASSESSMENT: * Ms Villeda is an 82 y/o F with a PMH of T2DM on insulin at home who presents with COVID and gastroparesis. * Patient's BSGs on admission were 239 mg/dL. She was given 30 units of Lantus y day evening. * Patient started on dexamethasone 6 mg IV daily yesterday. * For Lantus, will have scale corresponding to weight-based dosing. A hold is available if BSGs trend downwards too much. * Novolog weight-based scale of 3. PLAN FOR INPATIENT GLYCEMIC CONTROL: * Hold outpatient oral diabetes medications * Basal insulin * Lantus 0-20 units SQ BID (hold if BSG < 140 mg/dL; 10 units if BSG 140-180 mg/dL; 20 units if BSG > 180 mg/dL) * Bolus insulin * NovoLog per scale ACHS or Q6hrs while NPO * Goal Range: Low 110 mg/dL - High 140 mg/dL * Correction Factor: 20 mg/dL/unit * Nutritional / Prandial insulin per carb ratio of 1 unit per 7 grams CHO consumed
--- NOTE | 2022-09-01 13:52 | Electrocardiogram Report ---
Test Reason : Blood Pressure : / mmHG Vent. Rate : 068 BPM Atrial Rate : 068 BPM P-R Int : 252 ms QRS Dur : 082 ms QT Int : 438 ms P-R-T Axes : 005 086 080 degrees QTc Int : 465 ms Sinus rhythm with 1st degree A-V block Low voltage QRS Old Inferior infarct Old Anterior infarct (cited on or before 31-AUG-2022) T-wave inversion in Anterior leads , consider ischemia Abnormal ECG When compared with ECG of 31-AUG-2022 18:05, OH interval has decreased QRS axis Shifted right T wave inversion now evident in Anterior leads Confirmed by Andrea Blanca ([id number] on 09/01/2022 1:51:41 PM Referred By: REFERRED SELF Confirmed By:Andrea Blanca
[2022-09-01] MEDS: HEPARIN SOD 5,000 UNIT/0.5 ML VIAL SQ SCH ×2 (14:28→21:39)
--- NOTE | 2022-09-01 17:44 | Neurology Consultation ---
Date of Consultation September 01, 2022 Assessment & Plan (1) Acute dystonic reaction due to drugs: Impression: The patient was brought to emergency department with persistent nausea, vomiting and abdominal pain. The patient has gastroparesis. After receiving metoclopramide, the patient had dystonic reaction with torticollis which has been improved since then. The patient has no residual neurological symptoms. Plan/impression: We should avoid metoclopramide. If the patient continue having movement disorder symptoms, follow-up with neurology clinic is recommended. We will sign off. (2) Gastroparesis: (3) DM2 (diabetes mellitus, type 2): (4) COVID-19: (5) MARY KATE (acute kidney injury): (6) UTI (urinary tract infection): Plan Thank you for the consultation. History of Present Illness Reason for Consultation: Torticollis Requesting Physician: Tom Reed MD Attending Physician: Tom Reed MD History of Present Illness The patient is 82-year-old pleasant female, who was brought to emergency department yesterday, because of persistent nausea and vomiting as well as abdominal pain. The patient has a long history of gastroparesis. While she was in the emergency department, she had dystonic reaction after receiving metoclopramide with torticollis. Since then, metoclopramide has been avoided and the patient tolerates other antinausea medications well. The patient has no residual symptoms since then. She is also diagnosed with COVID-19 infection. I have reviewed the patient's chart and discussed the case with the patient and answer her questions. Allergies Allergy/AdvReac Type Severity Reaction Status Date / Time oxycodone Allergy Unknown Verified 08/31/22 16:25 Home Medications Medication Instructions Recorded Confirmed Type acetaminophen 500 mg tablet 500 mg PO Q6 PRN Fever Or Pain 08/31/22 08/31/22 History acetaminophen 500 mg tablet 500 mg PO QPM 08/31/22 08/31/22 History atorvastatin 10 mg tablet 10 mg PO HS 08/31/22 08/31/22 History brimonidine 0.1 % eye drops 1 drp OPL BID 08/31/22 08/31/22 History (Alphagan P) cholecalciferol (vitamin D3) 50 2,000 unit PO AMHS 08/31/22 08/31/22 History mcg (2,000 unit) capsule dorzolamide 22.3 mg-timolol 6.8 1 drp OPL AMHS 08/31/22 08/31/22 History mg/mL eye drops furosemide 40 mg tablet 20 mg PO QAM 08/31/22 08/31/22 History hydralazine 25 mg tablet 50 mg PO AMHS 08/31/22 08/31/22 History insulin aspart U-100 100 unit/mL 1 - 3 unit subcut .WITH BREAKFAST 08/31/22 08/31/22 History (3 mL) subcutaneous pen (Novolog Flexpen U-100 Insulin aspart) insulin glargine 100 unit/mL (3 15 - 18 unit subcut .Q AFTERNOON & 08/31/22 08/31/22 History mL) subcutaneous pen (Basaglar HS KwikPen U-100 Insulin) labetalol 200 mg tablet 300 mg PO AMHS 08/31/22 08/31/22 History metoclopramide HCl 5 mg tablet 5 mg PO DAILYBB 08/31/22 08/31/22 History ondansetron HCl 4 mg tablet 4 mg PO Q8 PRN Nausea 08/31/22 08/31/22 History pantoprazole 40 mg tablet,delayed 40 mg PO HS 08/31/22 08/31/22 History release silver sulfadiazine 1 % topical 1 applic topical BID 08/31/22 08/31/22 History cream (SSD) travoprost 0.004 % eye drops 1 drp OPL QPM 08/31/22 08/31/22 History (Travatan Z) Patient History Social History Smoking Status: Former smoker Second Hand Exposure: No; Do You Dip or Chew Tobacco: No; Tobacco Cessation Education Requested by Patient: No Hx Alcohol Use: No Hx Substance Use: No Preferred Language: Chinese Communication Ability: Effective Manufacturing Area Manager Required: No Beliefs That Will Affect Care: None marital status: / Current Living Situation: Family Current Living Situation Comment: lives with daughter Mily How many Children do You have: 1 Other Information That Helps Us Care for You: No Feels Safe at Home: Yes Assistive Devices: Hospital Bed and Wheelchair Review of Systems Review of Systems: All systems reviewed & are unremarkable except as noted in HPI & below Physical Exam Physical Exam: General Examination: Constitutional: Well developed person in no apperant distress. HENT: Normal exam with inspection. CV: Hearth rhythm is regular. Neck: Supple, no carotid bruits. Lungs: Non-labored and comfortable breathing. Abdomen: Soft, non-tender. Skin: No rash or ecchymosis. Extremities: No edema or cyanosis NEUROLOGICAL EXAMINATION: Mental Status: Alert and oriented to place, person and time. Cranial Nerves: II-XII are intact. No nystagmus. Funduscopy: Normal looking optic discs. Motor: Intact grossly. Tone: Normal without spasticity or rigidity. Sensory: Intact grossly without asymmetry Coordination: No dysmetria with FTN testing. Speech: Fluent. Comprehension is intact. Gait: Not assessed. Musculoskeletal: Normal muscle bulk, no atrophy. Results & Data ([facility]) Vital Signs (Past 12 Hours) Vital Signs Temp Pulse Resp BP Pulse Ox O2 Del Method O2 Flow Rate 09/01/22 07:45 Nasal Cannula 3 09/01/22 15:33 36.7 C 72 14 136/83 92 Nasal Cannula 3 09/01/22 10:50 92 Nasal Cannula 5 09/01/22 07:45 36.8 C 70 14 151/74 H 92 Nasal Cannula 3 Laboratory Results Laboratory Results - last 24 hr 08/31/22 08/31/22 08/31/22 12:50 12:50 18:07 WBC RBC Hgb Hct MCV MCH MCHC RDW Std Deviation RDW Coeff of Maegan Plt Count MPV Immature Gran % (Auto) Neut % (Auto) Lymph % (Auto) [place] % (Auto) Eos % (Auto) Baso % (Auto) Neut # (Auto) Lymph # (Auto) [place] # (Auto) Eos # (Auto) Baso # (Auto) Immature Gran # (Auto) PT INR Sodium Potassium Chloride Carbon Dioxide Anion Gap BUN Creatinine Est Cr Clr Drug Dosing Est GFR ( Amer) Est GFR (Non-Af Amer) BUN/Creatinine Ratio Glucose POC Glucose Estimat Average Glucose Hemoglobin A1c Calcium Phosphorus Magnesium Iron 30 L Unsaturated IBC 297 Ferritin 44.2 Total Bilirubin AST ALT Alkaline Phosphatase C-Reactive Protein Total Protein Albumin Globulin Albumin/Globulin Ratio Vitamin B12 Cancelled 702 Folate Cancelled 13.74 Procalcitonin 08/31/22 09/01/22 09/01/22 23:11 03:20 06:10 WBC RBC Hgb Hct MCV MCH MCHC RDW Std Deviation RDW Coeff of Maegan Plt Count MPV Immature Gran % (Auto) Neut % (Auto) Lymph % (Auto) [place] % (Auto) Eos % (Auto) Baso % (Auto) Neut # (Auto) Lymph # (Auto) [place] # (Auto) Eos # (Auto) Baso # (Auto) Immature Gran # (Auto) PT INR Sodium Potassium Chloride Carbon Dioxide Anion Gap BUN Creatinine Est Cr Clr Drug Dosing Est GFR ( Amer) Est GFR (Non-Af Amer) BUN/Creatinine Ratio Glucose POC Glucose 203 H 208 H Estimat Average Glucose Cancelled Hemoglobin A1c Cancelled Calcium Phosphorus Magnesium Iron Unsaturated IBC Ferritin Total Bilirubin AST ALT Alkaline Phosphatase C-Reactive Protein Total Protein Albumin Globulin Albumin/Globulin Ratio Vitamin B12 Folate Procalcitonin 09/01/22 09/01/22 09/01/22 06:10 06:10 06:10 WBC 6.05 RBC 3.86 L Hgb 10.2 L Hct 30.4 L MCV 78.8 L MCH 26.4 MCHC 33.6 RDW Std Deviation 41.7 RDW Coeff of Maegan 14.6 H Plt Count 248 MPV 11.4 Immature Gran % (Auto) 0.2 Neut % (Auto) 80.8 Lymph % (Auto) 15.0 [place] % (Auto) 4.0 Eos % (Auto) 0.0 Baso % (Auto) 0.0 Neut # (Auto) 4.89 Lymph # (Auto) 0.91 L [place] # (Auto) 0.24 Eos # (Auto) 0.00 Baso # (Auto) 0.00 Immature Gran # (Auto) 0.01 PT 10.8 INR 1.0 Sodium 136 Potassium 3.8 Chloride 104 Carbon Dioxide 21 Anion Gap 11 BUN 26 H Creatinine 1.41 H Est Cr Clr Drug Dosing 31.4 Est GFR ( Amer) 39.8 Est GFR (Non-Af Amer) 34.4 BUN/Creatinine Ratio 18.4 Glucose 198 H POC Glucose Estimat Average Glucose Hemoglobin A1c Calcium 8.1 L Phosphorus 3.0 Magnesium 1.5 L Iron Unsaturated IBC Ferritin Total Bilirubin 0.3 AST 37 ALT 13 Alkaline Phosphatase 79 C-Reactive Protein 1.21 H Total Protein 6.3 Albumin 3.5 Globulin 2.8 Albumin/Globulin Ratio 1.3 Vitamin B12 Folate Procalcitonin 09/01/22 09/01/2222 06:10 08:10 12:45 WBC RBC Hgb Hct MCV MCH MCHC RDW Std Deviation RDW Coeff of Maegan Plt Count MPV Immature Gran % (Auto) Neut % (Auto) Lymph % (Auto) [place] % (Auto) Eos % (Auto) Baso % (Auto) Neut # (Auto) Lymph # (Auto) [place] # (Auto) Eos # (Auto) Baso # (Auto) Immature Gran # (Auto) PT INR Sodium Potassium Chloride Carbon Dioxide Anion Gap BUN Creatinine Est Cr Clr Drug Dosing Est GFR ( Amer) Est GFR (Non-Af Amer) BUN/Creatinine Ratio Glucose POC Glucose 199 H 184 H Estimat Average Glucose Hemoglobin A1c Calcium Phosphorus Magnesium Iron Unsaturated IBC Ferritin Total Bilirubin AST ALT Alkaline Phosphatase C-Reactive Protein Total Protein Albumin Globulin Albumin/Globulin Ratio Vitamin B12 Folate Procalcitonin < 0.05 09/01/22 15:46 WBC RBC Hgb Hct MCV MCH MCHC RDW Std Deviation RDW Coeff of Maegan Plt Count MPV Immature Gran % (Auto) Neut % (Auto) Lymph % (Auto) [place] % (Auto) Eos % (Auto) Baso % (Auto) Neut # (Auto) Lymph # (Auto) [place] # (Auto) Eos # (Auto) Baso # (Auto) Immature Gran # (Auto) PT INR Sodium Potassium Chloride Carbon Dioxide Anion Gap BUN Creatinine Est Cr Clr Drug Dosing Est GFR ( Amer) Est GFR (Non-Af Amer) BUN/Creatinine Ratio Glucose POC Glucose 100 H Estimat Average Glucose Hemoglobin A1c Calcium Phosphorus Magnesium Iron Unsaturated IBC Ferritin Total Bilirubin AST ALT Alkaline Phosphatase C-Reactive Protein Total Protein Albumin Globulin Albumin/Globulin Ratio Vitamin B12 Folate Procalcitonin Diagnostic Findings Abdomen/Pelvis CT 08/31/22 12:[address] WITH IV CONTRAST CT DOSE: 641.61 mGy.cm HISTORY: Nausea. Vomiting. TECHNIQUE: Multiaxial CT images of the abdomen and pelvis were performed following the use of intravenous contrast. A dose lowering technique was utilized adhering to the principles of ALARA. COMPARISON STUDY: None. FINDINGS: Mild interlobular septal thickening at the lung bases consistent with pulmonary edema. Fusion of the L4-5 vertebral bodies. There are severe degenerative disc disease at L3-L4 and L5-S1. No pneumoperitoneum. No pneumatosis. No acute fractures within the visualized osseous structures. Mild circumferential thickening of the distal esophagus with a small hiatus hernia. Small fat-containing bilateral inguinal hernias. There is a 5.0 x 2.6 cm hypodense tubular shaped lesion within the right lower quadrant. This appears to be contiguous with the tip of the appendix as well as adjacent to the right ovary. Therefore, this could represent an appendiceal mucocele or possibly an ovarian lesion. Regardless, this would be considered pathologic. No surrounding inflammatory change to suggest an acute process. The bladder, uterus, left ovary are within normal limits. No pelvic free fluid. No bowel wall thickening or obstruction. No retroperitoneal lymphadenopathy. Calcified plaque within the normal caliber abdominal aorta. The main portal vein is patent. The gallbladder, spleen, and adrenal glands unremarkable. Normal pancreas. A 1 cm hypodense lesion within the left hepatic lobe. This favors a cyst. There is moderate bilateral perinephric edema. Small linear areas of fat density within the left kidney which may represent areas of cortical scarring or small angiomyolipomas. No ureteral stones. No hydronephrosis. The majority the colon is decompressed. IMPRESSION: 1. Mild interlobular septal thickening within the lung bases consistent with mild pulmonary edema. No pleural effusions. 2. No bowel wall thickening or obstruction. 3. Moderate bilateral perinephric edema. This is likely chronic. Recommend correlation with urinalysis to exclude the possibility of a superimposed infection. 4. There is a 5.0 x 2.6 cm hypodense tubular shaped lesion within the right lower quadrant. This appears to be contiguous with the tip of the appendix as well as adjacent to the right ovary. Therefore, this could represent an appendiceal mucocele or possibly an ovarian lesion. Regardless, this would be considered pathologic and nonemergent surgical consultation recommended. 5. Additional findings as described above. ACT 112: Negative or not required by law. Electronically signed by: Chester Jalloh M.D. 08/31/2022 3:20 PM Chest X-Ray 08/31/22 12:10 XR chest 1V portable HISTORY: cough COMPARISON: None. FINDINGS: The cardiac silhouette is top normal in size. Mild central bronchial wall thickening which is likely chronic. No new focal lung consolidations to suggest a pneumonia. No evidence for pulmonary edema. There is eventration of the right hemidiaphragm. IMPRESSION: No acute process. ACT 112: Negative or not required by law. Electronically signed by: Chester Jalloh M.D. 08/31/2022 12:[address] 08/31/22 16:[address] DOSE: 1498.35 mGy.cm HISTORY: seizure TECHNIQUE: Multiaxial CT images of the head were performed without the use of intravenous contrast. Automated exposure control was utilized for this study. A dose lowering technique was utilized adhering to the principles of ALARA. Comparison: None. Findings: There is residual contrast within the brain from the recent abdomen and pelvis CT. Mild mucosal thickening within the paranasal sinuses. The mastoid air cells are clear. The calvarium and skull base are intact. There is no mass, hematoma, midline shift, acute infarct. White matter hypodensity is nonspecific but suggestive of microvascular ischemic change. The ventricles and sulci demonstrate mild age-related involutional changes. 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 Impression: Residual contrast within the brain from the recent abdomen and pelvis CT. However, no definite acute intracranial abnormality. ACT 112: Negative or not required by law. Electronically signed by: Chester Jalloh M.D. 08/31/2022 5:49 PM
[2022-09-01] MEDS ORDERED: REMDESIVIR 100 MG in SODIUM CHLORIDE 0.9% 230 ML IV SCH (20:00)
[2022-09-01] MEDS: ATORVASTATIN 10 MG TAB PO SCH (20:40)
[2022-09-01] MEDS: TRAVOPROST Z 0.004% OPH SOLN 2.5 ML BTL OPL SCH (20:42)
[2022-09-01] MEDS ORDERED: INSULIN ASPART PER UNIT SC SCH (21:45)
[2022-09-02] MEDS: INSULIN ASPART PER UNIT SC SCH ×6 (00:03→21:07)
[2022-09-02] MEDS: ERYTHROMYCIN 250 MG in SODIUM CHLORIDE 0.9% 250 ML IV SCH (05:52)
[2022-09-02] MEDS: HEPARIN SOD 5,000 UNIT/0.5 ML VIAL SQ SCH ×3 (05:52→21:02)
[2022-09-02 06:54] LABS: Albumin Globulin Ratio 1.3 (0.9-2); Albumin Level 3.3 gm/dl (3.4-5.0); BUN Creatinine Ratio 23.3 (10-20); Bilirubin,Total 0.3 mg/dl (0.2-1.0); Calcium 7.9 mg/dl (8.5-10.1); Creatinine Clr Calc Pharmacy 27.2 ml/min; Est GFR (African American) 33.4 ml/min; Est GFR (Non-African American) 28.8 ml/min; Globulin 2.6 gm/dl (2.5-4.0); Phosphorus 3.8 mg/dl (2.5-4.9); Potassium 4.1 mmol/L (3.5-5.1); Total Protein 5.9 gm/dl (6.0-8.3)
[2022-09-02] MEDS ORDERED: LACTATED RINGER'S 1,000 ML IV SCH (07:30)
[2022-09-02 07:38] LABS: Estimated Average Glucose 177 mg/dl; Hemoglobin A1C 7.8 % (4.5-5.6)
[2022-09-02] MEDS: LANTUS PER UNIT CHARGE SQ SCH ×2 (08:39→21:33)
--- NOTE | 2022-09-02 09:02 | Surgery Progress Note ---
Date of Service September 02, 2022 Assessment & Plan (1) Abdominal pain: Plan: pt is a 82 year-old female who was admitted to hospital for epigastric pain with nausea and vomiting, CT Scan-There is a 5.0 x 2.6 cm hypodense tubular shaped lesion within the right lower quadrant. This appears to be contiguous with the tip of the appendix as well as adjacent to the right ovary. Therefore, this could represent an appendiceal mucocele or possibly an ovarian lesion. IMP: abdominal pain, possible appendix or ovary lesion, plan, recommend to consult OB-DRESSMAKING TEACHER to R/O ovary lesion, will F/U, pt agrees with the plan, I answered all questions, 09/02/2022 8:56AM once OB-DRESSMAKING TEACHER R/O ovary lesion, no emergent surgery indication now, I will do out-patient setting to do appendectomy if this is appendix lesion, F/U my clinic 2 weeks, pt understood, i answered all questions, automation lead surgeon will cover today and tomorrow, Thanks, Admission and Anticipated Discharge Date Admission Date: August 31, 2022 Subjective Patient with DM admitted with gastroparesis most likely and COVID requiring oxygen. Started on erythromycin, dexamethasone, remdesivir, IVF. GI consulted and recommend symptomatic treatment. Surgery consulted for abdominal lesion, Communications Tower Technician consulted for the same. NEurolgoy consulted for ?seizure vs metoclopromide adverse effect of torticollis. Patient in severe abdominal pain, nausea. Denies diarrhea, chest pain, shortness of breath. still having cough with occasional yellow sputum. 09/02/2022 8:54AM epigastric pain, no RLQ pain, no nausea, no vomiting, no fever, Physical Exam Constitutional: WD/WN, vitals as above Eyes: PERRL, conjunctivae normal, anicteric sclerae Neck: trachea midline, no thyromegaly Respiratory: normal respiratory effort, lungs clear to auscultation Cardiovascular: RRR, no murmur, no edema Gastrointestinal (Abdomen): soft, mild tenderness at epigastric area, no rebound pain, no distend, BS +, Musculoskeletal: no cyanosis or clubbing, extremities motor strength 5/5 Neurologic: patellar DTR's 2+ bilat, sensation intact Psychiatric: A+Ox3, euthymic affect Results & Data ([facility]) Vital Signs (Past 12 Hours) Vital Signs Temp Pulse Resp BP BP Pulse Ox O2 Del Method 10/17/22 07:32 36.8 C 76 20 149/80 H 92 Nasal Cannula 09/02/22 05:24 37.1 C 75 20 143/78 H 94 Nasal Cannula O2 Flow Rate 09/02/22 07:32 3 09/02/22 05:24 3 Laboratory Results Abnormal lab results 08/31/22 08/31/22 09/01/22 Range/Units 12:50 12:50 12:45 Carbon Dioxide (21-32) mmol/L BUN (6-23) mg/dl Creatinine (0.6-1.2) mg/dl BUN/Creatinine Ratio (10-20) Glucose (70-99(Fasting)) mg/dl POC Glucose 184 H (70-99) mg/dl Hemoglobin A1c 7.8 H (4.5-5.6) % Calcium (8.5-10.1) mg/dl Iron 30 L (35-150) mcg/dl AST (13-39) U/L Total Protein (6.0-8.3) gm/dl Albumin (3.4-5.0) gm/dl 09/01/22 09/02/22 09/02/22 Range/Units 15:46 05:17 06:11 Carbon Dioxide 20 L (21-32) mmol/L BUN 38 H (6-23) mg/dl Creatinine 1.63 H (0.6-1.2) mg/dl BUN/Creatinine Ratio 23.3 H (10-20) Glucose 109 H (70-99(Fasting)) mg/dl POC Glucose 100 H 115 H (70-99) mg/dl Hemoglobin A1c (4.5-5.6) % Calcium 7.9 L (8.5-10.1) mg/dl Iron (35-150) mcg/dl AST 62 H (13-39) U/L Total Protein 5.9 L (6.0-8.3) gm/dl Albumin 3.3 L (3.4-5.0) gm/dl 09/02/22 Range/Units 08:00 Carbon Dioxide (21-32) mmol/L BUN (6-23) mg/dl Creatinine (0.6-1.2) mg/dl BUN/Creatinine Ratio (10-20) Glucose (70-99(Fasting)) mg/dl POC Glucose 111 H (70-99) mg/dl Hemoglobin A1c (4.5-5.6) % Calcium (8.5-10.1) mg/dl Iron (35-150) mcg/dl AST (13-39) U/L Total Protein (6.0-8.3) gm/dl Albumin (3.4-5.0) gm/dl
[2022-09-02] MEDS: dexAMETHasone 6 MG in SYRINGE 0 ML IV SCH (09:08)
[2022-09-02] MEDS: PANTOprazole 40 MG in SYRINGE 0 ML IV SCH (09:08)
[2022-09-02] MEDS: cefTRIAXone SODIUM 2,000 MG in DEXTROSE 5% 50 ML IV SCH (09:08)
[2022-09-02] MEDS: CHOLECALCIFEROL 1,000 UNITS 25 MCG TAB PO SCH ×2 (09:09→21:02)
[2022-09-02] MEDS: LABETALOL HCL 300 MG TAB PO SCH ×2 (09:10→21:02)
[2022-09-02] MEDS: hydrALAZINE TAB 50 MG TAB PO SCH ×2 (09:11→21:02)
[2022-09-02] MEDS: DORZOLAMIDE/TIMOLOL 22.3/6.8MG/ML 10 ML BTL OPL SCH ×2 (09:11→21:02)
--- NOTE | 2022-09-02 09:52 | Pharmacy Report ---
Pharmacy Glycemic Short Note 2 - Date of Service September 02, 2022 - Glycemic Short BSG Results (Last 24 hours): 09/01/22 09/01/22 09/01/22 12:45 15:46 19:58 Glucose POC Glucose 184 H 100 H 79 09/01/22 09/02/22 09/02/22 23:46 03:46 05:17 Glucose POC Glucose 99 88 115 H 09/02/22 09/02/22 06:11 08:00 Glucose 109 H POC Glucose 111 H OUTPATIENT ANTIDIABETIC REGIMEN: * Lantus 35 units SC AM * Lantus 30 units SC HS * HbA1C = 7.8% (08/31/22) ASSESSMENT: 09/02: * Fasting BSG was 115 mg/dL this AM. Adjusted Lantus scale slightly this AM. * Remains on IV Dexamethasone and abx. No change to Novolog. 09/01: * Ms Villeda is an 82 y/o F with a PMH of T2DM on insulin at home who presents with COVID and gastroparesis. * Patient's BSGs on admission were 239 mg/dL. She was given 30 units of Lantus yesterday evening. * Patient started on dexamethasone 6 mg IV daily yesterday. * For Lantus, will have scale corresponding to weight-based dosing. A hold is available if BSGs trend downwards too much. * Novolog weight-based scale of 3. PLAN FOR INPATIENT GLYCEMIC CONTROL: * Basal insulin * Lantus 0-20 units SC BID (hold if BSG < 110 mg/dL; 10 units if BSG 110-180 mg/dL; 20 units if BSG > 180 mg/dL) * Bolus insulin * NovoLog per scale ACHS or Q6hrs while NPO * Goal Range: Low 110 mg/dL - High 140 mg/dL * Correction Factor: 20 mg/dL/unit * Nutritional / Prandial insulin per carb ratio of 1 unit per 7 grams CHO consumed
--- NOTE | 2022-09-02 10:01 | XRay Report ---
XR chest 1V portable HISTORY: shortness of breath COMPARISON: Chest 08/31/2022. FINDINGS: No pneumothorax. The cardiac silhouette remains top normal in size. There is progressive in terstitial/vascular thickening suggestive of mild congestive change. There are bibasilar linear densi ties and small bilateral pleural effusions which have progressed. IMPRESSION: 1. Interval development of the mild central pulmonary vascular congestion without overt edema. 2. Small bilateral pleural effusions and bibasilar densities are new from the prior study. ACT 112: Negative or not required by law. Electronically signed by: Chester Jalloh M.D. 09/02/2022 10:00 AM
--- NOTE | 2022-09-02 10:59 | Consultation ---
Date of Consultation September 02, 2022 Assessment & Plan (1) Lesion of right ovary: Ca-125 pending doubt ovarian cancer as no ascites any other pelvic involvement No surgical intervention at this time History of Present Illness Requesting Physician: Medicine service Reason for Consultation: possible ovarian lesion Attending Physician: Tom Reed MD History of Present Illness 82 F [id number] post menopausal comes in from ER with acute onset of SOB and abdominal pain. Patient tested positive for Covid and is now SOB with some labored breathing. She is in isolation and is being taken care of by the hospitalist. She had a CT scan with finding of possible ovarian lesion on the right adjacent to the appendix. No ascites or any omentum involvement. She has no family history of ovarian cancer nd has not had any post-menopausal bleeding or any standards analyst problems in the past. No prior standards analyst surgery. She is not in any acute distress from any abdominal pain at this time and is tolerating her diet at this time. Allergies Allergy/AdvReac Type Severity Reaction Status Date / Time oxycodone Allergy Unknown Verified 08/31/22 16:25 Home Medications Medication Instructions Recorded Confirmed Type acetaminophen 500 mg tablet 500 mg PO Q6 PRN Fever Or Pain 08/31/22 08/31/22 History acetaminophen 500 mg tablet 500 mg PO QPM 08/31/22 08/31/22 History atorvastatin 10 mg tablet 10 mg PO HS 08/31/22 08/31/22 History brimonidine 0.1 % eye drops 1 drp OPL BID 08/31/22 08/31/22 History (Alphagan P) cholecalciferol (vitamin D3) 50 2,000 unit PO AMHS 08/31/22 08/31/22 History mcg (2,000 unit) capsule dorzolamide 22.3 mg-timolol 6.8 1 drp OPL AMHS 08/31/22 08/31/22 History mg/mL eye drops furosemide 40 mg tablet 20 mg PO QAM 08/31/22 08/31/22 History hydralazine 25 mg tablet 50 mg PO AMHS 08/31/22 08/31/22 History insulin aspart U-100 100 unit/mL 1 - 3 unit subcut .WITH BREAKFAST 08/31/22 08/31/22 History (3 mL) subcutaneous pen (Novolog Flexpen U-100 Insulin aspart) insulin glargine 100 unit/mL (3 15 - 18 unit subcut .Q AFTERNOON & 08/31/22 08/31/22 History mL) subcutaneous pen (Basaglar HS KwikPen U-100 Insulin) labetalol 200 mg tablet 300 mg PO AMHS 08/31/22 08/31/22 History metoclopramide HCl 5 mg tablet 5 mg PO DAILYBB 08/31/22 08/31/22 History ondansetron HCl 4 mg tablet 4 mg PO Q8 PRN Nausea 08/31/22 08/31/22 History pantoprazole 40 mg tablet,delayed 40 mg PO HS 08/31/22 08/31/22 History release silver sulfadiazine 1 % topical 1 applic topical BID 08/31/22 08/31/22 History cream (SSD) travoprost 0.004 % eye drops 1 drp OPL QPM 08/31/22 08/31/22 History (Travatan Z) Patient History Social History Smoking Status: Former smoker Second Hand Exposure: No; Do You Dip or Chew Tobacco: No; Tobacco Cessation Education Requested by Patient: No Hx Alcohol Use: No Hx Substance Use: No Preferred Language: [place] Communication Ability: Effective Oil Treater Required: No Beliefs That Will Affect Care: None marital status: / Current Living Situation: Family Current Living Situation Comment: lives with daughter Mily How many Children do You have: 1 Other Information That Helps Us Care for You: No Feels Safe at Home: Yes Assistive Devices: Hospital Bed and Wheelchair Review of Systems Review of Systems: All systems reviewed & are unremarkable except as noted in HPI & below Physical Exam Constitutional: WD/WN, vitals as above Gastrointestinal (Abdomen): normal bowel sounds, soft, nontender, no hepatosplenomegaly Inspection/Auscultation: abdomen normal to inspection abdomen soft and non-tender, no distention or any abdominal mass palpable. No rebound or guarding noted. No surgical scars noted Musculoskeletal: Extremities: extremities normal to inspection Skin: no rashes, warm and dry Neurologic: patellar DTR's 2+ bilat, sensation intact Psychiatric: A+Ox3, euthymic affect Results & Data ([place]) Vital Signs (Past 12 Hours) Vital Signs Temp Pulse Resp BP BP Pulse Ox O2 Del Method 09/02/22 07:36 Nasal Cannula 09/02/22 09:20 78 154/80 H 95 Nasal Cannula 09/02/22 07:32 36.8 C 76 20 149/80 H 92 Nasal Cannula 09/02/22 05:24 37.1 C 75 20 143/78 H 94 Nasal Cannula O2 Flow Rate 09/02/22 07:36 3 09/02/22 09:20 09/02/22 07:32 3 09/02/22 05:24 3 Laboratory Results 08/31/22 08/31/22 08/31/22 12:50 12:50 12:50 WBC 5.62 RBC 4.16 Hgb 10.9 L Hct 32.8 L MCV 78.8 L MCH 26.2 MCHC 33.2 RDW Std Deviation 41.2 RDW Coeff of Maegan 14.6 H Plt Count 200 MPV 11.4 Immature Gran % (Auto) 0.2 Neut % (Auto) 71.7 Lymph % (Auto) 23.3 [place] % (Auto) 4.4 Eos % (Auto) 0.2 Baso % (Auto) 0.2 Neut # (Auto) 4.03 Lymph # (Auto) 1.31 [place] # (Auto) 0.25 Eos # (Auto) 0.01 Baso # (Auto) 0.01 Immature Gran # (Auto) 0.01 PT INR Sodium 134 L Potassium 3.9 Chloride 99 Carbon Dioxide 22 Anion Gap 13 H BUN 24 H Creatinine 1.37 H Est Cr Clr Drug Dosing Not Reportable Est GFR ( Amer) 41.2 Est GFR (Non-Af Amer) 35.6 BUN/Creatinine Ratio 17.5 Glucose 217 H POC Glucose Estimat Average Glucose Hemoglobin A1c Calcium 8.9 Phosphorus Magnesium Iron Unsaturated IBC Ferritin Total Bilirubin 0.4 AST 23 ALT 14 Alkaline Phosphatase 92 C-Reactive Protein Total Protein 7.5 Albumin 4.1 Globulin 3.4 Albumin/Globulin Ratio 1.2 Lipase 12 Vitamin B12 Folate Procalcitonin Urine Color Urine Appearance Urine pH Ur Specific [place] Urine Protein Urine Glucose (UA) Urine Ketones Urine Blood Urine Nitrite Urine Bilirubin Urine Urobilinogen Ur Leukocyte Esterase Urine WBC (Auto) Urine RBC (Auto) U Hyaline Cast (Auto) U Epithel Cells (Auto) Urine Bacteria (Auto) SARS-CoV-2, RNA, NAAT POSITIVE A* 08/31/22 08/31/22 08/31/22 12:50 12:50 12:50 WBC RBC Hgb Hct MCV MCH MCHC RDW Std Deviation RDW Coeff of Maegan Plt Count MPV Immature Gran % (Auto) Neut % (Auto) Lymph % (Auto) [place] % (Auto) Eos % (Auto) Baso % (Auto) Neut # (Auto) Lymph # (Auto) [place] # (Auto) Eos # (Auto) Baso # (Auto) Immature Gran # (Auto) PT INR Sodium Potassium Chloride Carbon Dioxide Anion Gap BUN Creatinine Est Cr Clr Drug Dosing Est GFR ( Amer) Est GFR (Non-Af Amer) BUN/Creatinine Ratio Glucose POC Glucose Estimat Average Glucose 177 Hemoglobin A1c 7.8 H Calcium Phosphorus Magnesium Iron 30 L Unsaturated IBC 297 Ferritin 44.2 Total Bilirubin AST ALT Alkaline Phosphatase C-Reactive Protein Total Protein Albumin Globulin Albumin/Globulin Ratio Lipase Vitamin B12 Cancelled Folate Cancelled Procalcitonin Urine Color Urine Appearance Urine pH Ur Specific [place] Urine Protein Urine Glucose (UA) Urine Ketones Urine Blood Urine Nitrite Urine Bilirubin Urine Urobilinogen Ur Leukocyte Esterase Urine WBC (Auto) Urine RBC (Auto) U Hyaline Cast (Auto) U Epithel Cells (Auto) Urine Bacteria (Auto) SARS-CoV-2, RNA, NAAT 08/31/22 08/31/22 08/31/22 13:33 16:44 18:07 WBC RBC Hgb Hct MCV MCH MCHC RDW Std Deviation RDW Coeff of Maegan Plt Count MPV Immature Gran % (Auto) Neut % (Auto) Lymph % (Auto) [place] % (Auto) Eos % (Auto) Baso % (Auto) Neut # (Auto) Lymph # (Auto) [place] # (Auto) Eos # (Auto) Baso # (Auto) Immature Gran # (Auto) PT INR Sodium Potassium Chloride Carbon Dioxide Anion Gap BUN Creatinine Est Cr Clr Drug Dosing Est GFR ( Amer) Est GFR (Non-Af Amer) BUN/Creatinine Ratio Glucose POC Glucose 239 H Estimat Average Glucose Hemoglobin A1c Calcium Phosphorus Magnesium Iron Unsaturated IBC Ferritin Total Bilirubin AST ALT Alkaline Phosphatase C-Reactive Protein Total Protein Albumin Globulin Albumin/Globulin Ratio Lipase Vitamin B12 702 Folate 13.74 Procalcitonin Urine Color Yellow Urine Appearance Cloudy A Urine pH 6.0 Ur Specific [place] 1.013 Urine Protein 3+ H Urine Glucose (UA) 2+ H Urine Ketones 1+ H Urine Blood Trace H Urine Nitrite Negative Urine Bilirubin Negative Urine Urobilinogen Negative Ur Leukocyte Esterase Trace H Urine WBC (Auto) >30 H Urine RBC (Auto) 0-4 U Hyaline Cast (Auto) 1-5 U Epithel Cells (Auto) >30 H Urine Bacteria (Auto) 4+ H SARS-CoV-2, RNA, NAAT 08/31/22 09/01/22 09/01/22 23:11 03:20 06:10 WBC RBC Hgb Hct MCV MCH MCHC RDW Std Deviation RDW Coeff of Maegan Plt Count MPV Immature Gran % (Auto) Neut % (Auto) Lymph % (Auto) [place] % (Auto) Eos % (Auto) Baso % (Auto) Neut # (Auto) Lymph # (Auto) [place] # (Auto) Eos # (Auto) Baso # (Auto) Immature Gran # (Auto) PT INR Sodium Potassium Chloride Carbon Dioxide Anion Gap BUN Creatinine Est Cr Clr Drug Dosing Est GFR ( Amer) Est GFR (Non-Af Amer) BUN/Creatinine Ratio Glucose POC Glucose 203 H 208 H Estimat Average Glucose Cancelled Hemoglobin A1c Cancelled Calcium Phosphorus Magnesium Iron Unsaturated IBC Ferritin Total Bilirubin AST ALT Alkaline Phosphatase C-Reactive Protein Total Protein Albumin Globulin Albumin/Globulin Ratio Lipase Vitamin B12 Folate Procalcitonin Urine Color Urine Appearance Urine pH Ur Specific [place] Urine Protein Urine Glucose (UA) Urine Ketones Urine Blood Urine Nitrite Urine Bilirubin Urine Urobilinogen Ur Leukocyte Esterase Urine WBC (Auto) Urine RBC (Auto) U Hyaline Cast (Auto) U Epithel Cells (Auto) Urine Bacteria (Auto) SARS-CoV-2, RNA, NAAT 09/01/22 09/01/22 09/01/22 06:10 06:10 06:10 WBC 6.05 RBC 3.86 L Hgb 10.2 L Hct 30.4 L MCV 78.8 L MCH 26.4 MCHC 33.6 RDW Std Deviation 41.7 RDW Coeff of Maegan 14.6 H Plt Count 248 MPV 11.4 Immature Gran % (Auto) 0.2 Neut % (Auto) 80.8 Lymph % (Auto) 15.0 [place] % (Auto) 4.0 Eos % (Auto) 0.0 Baso % (Auto) 0.0 Neut # (Auto) 4.89 Lymph # (Auto) 0.91 L [place] # (Auto) 0.24 Eos # (Auto) 0.00 Baso # (Auto) 0.00 Immature Gran # (Auto) 0.01 PT 10.8 INR 1.0 Sodium 136 Potassium 3.8 Chloride 104 Carbon Dioxide 21 Anion Gap 11 BUN 26 H Creatinine 1.41 H Est Cr Clr Drug Dosing 31.4 Est GFR ( Amer) 39.8 Est GFR (Non-Af Amer) 34.4 BUN/Creatinine Ratio 18.4 Glucose 198 H POC Glucose Estimat Average Glucose Hemoglobin A1c Calcium 8.1 L Phosphorus 3.0 Magnesium 1.5 L Iron Unsaturated IBC Ferritin Total Bilirubin 0.3 AST 37 ALT 13 Alkaline Phosphatase 79 C-Reactive Protein 1.21 H Total Protein 6.3 Albumin 3.5 Globulin 2.8 Albumin/Globulin Ratio 1.3 Lipase Vitamin B12 Folate Procalcitonin Urine Color Urine Appearance Urine pH Ur Specific [place] Urine Protein Urine Glucose (UA) Urine Ketones Urine Blood Urine Nitrite Urine Bilirubin Urine Urobilinogen Ur Leukocyte Esterase Urine WBC (Auto) Urine RBC (Auto) U Hyaline Cast (Auto) U Epithel Cells (Auto) Urine Bacteria (Auto) SARS-CoV-2, RNA, NAAT 09/01/22 09/01/22 09/01/22 06:10 08:10 12:45 WBC RBC Hgb Hct MCV MCH MCHC RDW Std Deviation RDW Coeff of Maegan Plt Count MPV Immature Gran % (Auto) Neut % (Auto) Lymph % (Auto) [place] % (Auto) Eos % (Auto) Baso % (Auto) Neut # (Auto) Lymph # (Auto) [place] # (Auto) Eos # (Auto) Baso # (Auto) Immature Gran # (Auto) PT INR Sodium Potassium Chloride Carbon Dioxide Anion Gap BUN Creatinine Est Cr Clr Drug Dosing Est GFR ( Amer) Est GFR (Non-Af Amer) BUN/Creatinine Ratio Glucose POC Glucose 199 H 184 H Estimat Average Glucose Hemoglobin A1c Calcium Phosphorus Magnesium Iron Unsaturated IBC Ferritin Total Bilirubin AST ALT Alkaline Phosphatase C-Reactive Protein Total Protein Albumin Globulin Albumin/Globulin Ratio Lipase Vitamin B12 Folate Procalcitonin < 0.05 Urine Color Urine Appearance Urine pH Ur Specific [place] Urine Protein Urine Glucose (UA) Urine Ketones Urine Blood Urine Nitrite Urine Bilirubin Urine Urobilinogen Ur Leukocyte Esterase Urine WBC (Auto) Urine RBC (Auto) U Hyaline Cast (Auto) U Epithel Cells (Auto) Urine Bacteria (Auto) SARS-CoV-2, RNA, NAAT 09/01/22 09/01/22 09/01/22 15:46 19:58 23:46 WBC RBC Hgb Hct MCV MCH MCHC RDW Std Deviation RDW Coeff of Maegan Plt Count MPV Immature Gran % (Auto) Neut % (Auto) Lymph % (Auto) [place] % (Auto) Eos % (Auto) Baso % (Auto) Neut # (Auto) Lymph # (Auto) [place] # (Auto) Eos # (Auto) Baso # (Auto) Immature Gran # (Auto) PT INR Sodium Potassium Chloride Carbon Dioxide Anion Gap BUN Creatinine Est Cr Clr Drug Dosing Est GFR ( Amer) Est GFR (Non-Af Amer) BUN/Creatinine Ratio Glucose POC Glucose 100 H 79 99 Estimat Average Glucose Hemoglobin A1c Calcium Phosphorus Magnesium Iron Unsaturated IBC Ferritin Total Bilirubin AST ALT Alkaline Phosphatase C-Reactive Protein Total Protein Albumin Globulin Albumin/Globulin Ratio Lipase Vitamin B12 Folate Procalcitonin Urine Color Urine Appearance Urine pH Ur Specific [place] Urine Protein Urine Glucose (UA) Urine Ketones Urine Blood Urine Nitrite Urine Bilirubin Urine Urobilinogen Ur Leukocyte Esterase Urine WBC (Auto) Urine RBC (Auto) U Hyaline Cast (Auto) U Epithel Cells (Auto) Urine Bacteria (Auto) SARS-CoV-2, RNA, NAAT 09/02/22 09/02/22 09/02/22 03:46 05:17 06:11 WBC RBC Hgb Hct MCV MCH MCHC RDW Std Deviation RDW Coeff of Maegan Plt Count MPV Immature Gran % (Auto) Neut % (Auto) Lymph % (Auto) [place] % (Auto) Eos % (Auto) Baso % (Auto) Neut # (Auto) Lymph # (Auto) [place] # (Auto) Eos # (Auto) Baso # (Auto) Immature Gran # (Auto) PT INR Sodium 137 Potassium 4.1 Chloride 106 Carbon Dioxide 20 L Anion Gap 11 BUN 38 H Creatinine 1.63 H Est Cr Clr Drug Dosing 27.2 Est GFR ( Amer) 33.4 Est GFR (Non-Af Amer) 28.8 BUN/Creatinine Ratio 23.3 H Glucose 109 H POC Glucose 88 115 H Estimat Average Glucose Hemoglobin A1c Calcium 7.9 L Phosphorus 3.8 Magnesium 2.0 Iron Unsaturated IBC Ferritin Total Bilirubin 0.3 AST 62 H ALT 16 Alkaline Phosphatase 70 C-Reactive Protein Total Protein 5.9 L Albumin 3.3 L Globulin 2.6 Albumin/Globulin Ratio 1.3 Lipase Vitamin B12 Folate Procalcitonin Urine Color Urine Appearance Urine pH Ur Specific [place] Urine Protein Urine Glucose (UA) Urine Ketones Urine Blood Urine Nitrite Urine Bilirubin Urine Urobilinogen Ur Leukocyte Esterase Urine WBC (Auto) Urine RBC (Auto) U Hyaline Cast (Auto) U Epithel Cells (Auto) Urine Bacteria (Auto) SARS-CoV-2, RNA, NAAT 09/02/22 08:00 WBC RBC Hgb Hct MCV MCH MCHC RDW Std Deviation RDW Coeff of Maegan Plt Count MPV Immature Gran % (Auto) Neut % (Auto) Lymph % (Auto) [place] % (Auto) Eos % (Auto) Baso % (Auto) Neut # (Auto) Lymph # (Auto) [place] # (Auto) Eos # (Auto) Baso # (Auto) Immature Gran # (Auto) PT INR Sodium Potassium Chloride Carbon Dioxide Anion Gap BUN Creatinine Est Cr Clr Drug Dosing Est GFR ( Amer) Est GFR (Non-Af Amer) BUN/Creatinine Ratio Glucose POC Glucose 111 H Estimat Average Glucose Hemoglobin A1c Calcium Phosphorus Magnesium Iron Unsaturated IBC Ferritin Total Bilirubin AST ALT Alkaline Phosphatase C-Reactive Protein Total Protein Albumin Globulin Albumin/Globulin Ratio Lipase Vitamin B12 Folate Procalcitonin Urine Color Urine Appearance Urine pH Ur Specific [place] Urine Protein Urine Glucose (UA) Urine Ketones Urine Blood Urine Nitrite Urine Bilirubin Urine Urobilinogen Ur Leukocyte Esterase Urine WBC (Auto) Urine RBC (Auto) U Hyaline Cast (Auto) U Epithel Cells (Auto) Urine Bacteria (Auto) SARS-CoV-2, RNA, NAAT
[2022-09-02] MEDS ORDERED: FUROSEMIDE INJ 20 MG/2 ML VIAL IV ONE (11:57)
--- NOTE | 2022-09-02 12:06 | Hospitalist Progress Note ---
Date of Service September 02, 2022 Assessment & Plan (1) Gastroparesis: Plan: - persistent n/v and abdominal pain in the setting of diabetes - reports recent use of metoclopramide with ?torticollis side effects? - will avoid metoclopramide for now - advance diet as tolerated - IVF - stop now - IV erythromycin - will discontinue today - GI consult - symptomatic treatment - insulin for DM and good BG control in setting of gastroparesis (2) COVID-19: Plan: - mild symptoms of sore throat and rhinorrhea - now resolved - persistent dry cough with some production - requiring 3L O2 NC - continue dexamethasone x10 days and remdesivir x5 days - oxygen as needed to keep SpO2 >92% - IVF stopped due to possible pulmonary congestion with aggressive IVF, but no history of CHF - given 1 dose 20mg IV lasix and monitor response - repeat BMP for Cr in afternoon (3) DM2 (diabetes mellitus, type 2): Plan: - A1c 7.8% 08/2022 - on lantus and prandials - will continue here - diabetic diet when tolerating PO - pharmacy insulin management (4) HTN (hypertension): Plan: - continue home medications - IV prns as needed if not tolerating PO (5) Anemia: Plan: - hgb 10.9 on admission - unclear baseline - no bleeding noted - iron studies, ferritin, b12, folate - likely chronic disease - monitor for now (6) MARY KATE (acute kidney injury): Plan: - likely in the setting of decreased po intake and n/v/d - IVF in ed and will continue - trend Cr - no change in Cr, possible could be baseline without previous - avoid nephrotoxic meds (7) Hyponatremia: Plan: - likely from decreased po - IVF as above - monitor Na in AM labs - resolved (8) UTI (urinary tract infection): Plan: - positive UA, positive symptoms of frequency - will treat with IVF - ceftriaxone for 5 days (2/5) Plan DVT ppx: heparin SC Code Status: Full Code Dispo: med/surg Tom Reed MD [facility] Medicine Admission and Anticipated Discharge Date Admission Date: August 31, 2022 Subjective Patient with DM admitted with gastroparesis most likely and COVID requiring oxygen. Started on erythromycin, dexamethasone, remdesivir, IVF. GI consulted and recommend symptomatic treatment. Surgery consulted for abdominal lesion, Principal Law Clerk consulted for the same. NEurolgoy consulted for ?seizure vs metoclopromide adverse effect of torticollis. Patient with much improved abdominal pain, now gone. No nausea, tolerating diet. Cough still present. Denies diarrhea, chest pain, shortness of breath. still having cough with occasional yellow sputum Review of Systems Review of Systems: All systems reviewed & are unremarkable except as noted in Subjective Physical Exam Physical Exam: GENERAL: sleepy, lying in bed, alert when spoken to, chronically ill-appearing, disheveled EYE EXAM: injected conjunctiva. OROPHARYNX: mucous membranes are dry NECK: supple, no nuchal rigidity, no adenopathy, non-tender LUNGS: mild crackles in RLL, otherwise CTAB. Normal chest wall mechanics HEART: no murmurs, S1 normal and S2 normal ABDOMEN: abdomen soft, nontender to palpation, normal bowel sounds, no masses, no rebound or guarding. UPPER EXTREMITIES: upper extremities are grossly normal. LOWER EXTREMITIES: No pitting edema. NEURO EXAM: Normal sensorium, cranial nerves II-XII grossly intact, normal speech, no gross weakness of arms, no gross weakness of legs. Results & Data Results & Data ([facility]) Vital Signs (Past 12 Hours) Vital Signs Temp Pulse Resp BP BP Pulse Ox O2 Del Method 09/02/22 07:36 Nasal Cannula 09/02/22 09:20 78 154/80 H 95 Nasal Cannula 09/02/22 07:32 36.8 C 76 20 149/80 H 92 Nasal Cannula 09/02/22 05:24 37.1 C 75 20 143/78 H 94 Nasal Cannula O2 Flow Rate 09/02/22 07:36 3 09/02/22 09:20 09/02/22 07:32 3 09/02/22 05:24 3 Diagnostic Findings Laboratory Results WBC 6.05 K/ul (4.8-10.8) 09/01/22 06:10 RBC 3.86 M/uL (3.93-5.22) L 09/01/22 06:10 Hgb 10.2 g/dl (12.0-16.0) L 09/01/22 06:10 Hct 30.4 % (34.1-44.9) L 09/01/22 06:10 MCV 78.8 fL (80.0-100.0) L 09/01/22 06:10 MCH 26.4 pg (25.0-34.0) 09/01/22 06:10 MCHC 33.6 g/dL (32.0-36.0) 09/01/22 06:10 RDW Std Deviation 41.7 fL (36.4-46.3) 09/01/22 06:10 RDW Coeff of Maegan 14.6 % (11.5-14.5) H 09/01/22 06:10 Plt Count 248 K/uL (130-400) 09/01/22 06:10 MPV 11.4 fL (9.4-12.3) 09/01/22 06:10 Immature Gran % (Auto) 0.2 % 09/01/22 06:10 Neut % (Auto) 80.8 % 09/01/22 06:10 Lymph % (Auto) 15.0 % 09/01/22 06:10 Refugio % (Auto) 4.0 % 09/01/22 06:10 Eos % (Auto) 0.0 % 09/01/22 06:10 Baso % (Auto) 0.0 % 09/01/22 06:10 Neut # (Auto) 4.89 K/uL (1.4-6.5) 09/01/22 06:10 Lymph # (Auto) 0.91 K/uL (1.2-3.4) L 09/01/22 06:10 Refugio # (Auto) 0.24 K/uL (0.24-0.82) 09/01/22 06:10 Eos # (Auto) 0.00 K/uL (0-0.50) 09/01/22 06:10 Baso # (Auto) 0.00 K/uL (0-0.2) 09/01/22 06:10 Immature Gran # (Auto) 0.01 K/uL (0.00-0.02) 09/01/22 06:10 PT 10.8 Seconds (9.0-12.0) 09/01/22 06:10 INR 1.0 (0.9-1.1) 09/01/22 06:10 Sodium 137 mmol/L (136-145) 09/02/22 06:11 Potassium 4.1 mmol/L (3.5-5.1) 09/02/22 06:11 Chloride 106 mmol/L (98-107) 09/02/22 06:11 Carbon Dioxide 20 mmol/L (21-32) L 09/02/22 06:11 Anion Gap 11 (3-11) 09/02/22 06:11 BUN 38 mg/dl (6-23) H 09/02/22 06:11 Creatinine 1.63 mg/dl (0.6-1.2) H 09/02/22 06:11 Est Cr Clr Drug Dosing 27.2 ml/min 09/02/22 06:11 Est GFR ( Amer) 33.4 ml/min 09/02/22 06:11 Est GFR (Non-Af Amer) 28.8 ml/min 09/02/22 06:11 BUN/Creatinine Ratio 23.3 (10-20) H 09/02/22 06:11 Glucose 109 mg/dl (70-99(Fasting)) H 09/02/22 06:11 POC Glucose 111 mg/dl (70-99) H 09/02/22 08:00 Estimat Average Glucose Cancelled 09/01/22 06:10 Hemoglobin A1c Cancelled 09/01/22 06:10 Calcium 7.9 mg/dl (8.5-10.1) L 09/02/22 06:11 Phosphorus 3.8 mg/dl (2.5-4.9) 09/02/22 06:11 Magnesium 2.0 mg/dl (1.7-2.4) 09/02/22 06:11 Iron 30 mcg/dl (35-150) L 08/31/22 12:50 Unsaturated IBC 297 mcg/dl (155-355) 08/31/22 12:50 Ferritin 44.2 ng/ml (8-388) 08/31/22 12:50 Total Bilirubin 0.3 mg/dl (0.2-1.0) 09/02/22 06:11 AST 62 U/L (13-39) H 09/02/22 06:11 ALT 16 U/L (7-52) 09/02/22 06:11 Alkaline Phosphatase 70 U/L (34-104) 09/02/22 06:11 C-Reactive Protein 1.21 mg/dl (0-0.5) H 09/01/22 06:10 Total Protein 5.9 gm/dl (6.0-8.3) L 09/02/22 06:11 Albumin 3.3 gm/dl (3.4-5.0) L 09/02/22 06:11 Globulin 2.6 gm/dl (2.5-4.0) 09/02/22 06:11 Albumin/Globulin Ratio 1.3 (0.9-2) 09/02/22 06:11 Lipase 12 U/L (11-82) 08/31/22 12:50 Vitamin B12 702 pg/ml (180-914) 08/31/22 18:07 Folate 13.74 ng/ml (>5.38) 08/31/22 18:07 Procalcitonin < 0.05 ng/ml (0-0.5) 09/01/22 06:10 Urine Color Yellow 08/31/22 13:33 Urine Appearance Cloudy (Clear) A 08/31/22 13:33 Urine pH 6.0 (4.5-7.5) 08/31/22 13:33 Ur Specific [place] 1.013 (1.000-1.030) 08/31/22 13:33 Urine Protein 3+ (Negative) H 08/31/22 13:33 Urine Glucose (UA) 2+ (Negative) H 08/31/22 13:33 Urine Ketones 1+ (Negative) H 08/31/22 13:33 Urine Blood Trace (Negative) H 08/31/22 13:33 Urine Nitrite Negative (Negative) 08/31/22 13:33 Urine Bilirubin Negative (Negative) 08/31/22 13:33 Urine Urobilinogen Negative (Negative) 08/31/22 13:33 Ur Leukocyte Esterase Trace (Negative) H 08/31/22 13:33 Urine WBC (Auto) >30 /hpf (0-5) H 08/31/22 13:33 Urine RBC (Auto) 0-4 /hpf (0-4) 08/31/22 13:33 U Hyaline Cast (Auto) 1-5 /lpf (0-5) 08/31/22 13:33 U Epithel Cells (Auto) >30 /lpf (0-5) H 08/31/22 13:33 Urine Bacteria (Auto) 4+ (Negative) H 08/31/22 13:33 SARS-CoV-2, RNA, NAAT POSITIVE (NEGATIVE) A* 08/31/22 12:50 Impressions Abdomen/Pelvis CT 08/31/22 12:[address] WITH IV CONTRAST CT DOSE: 641.61 mGy.cm HISTORY: Nausea. Vomiting. TECHNIQUE: Multiaxial CT images of the abdomen and pelvis were performed following the use of intravenous contrast. A dose lowering technique was utilized adhering to the principles of ALARA. COMPARISON STUDY: None. FINDINGS: Mild interlobular septal thickening at the lung bases consistent with pulmonary edema. Fusion of the L4-5 vertebral bodies. There are severe degenerative disc disease at L3-L4 and L5-S1. No pneumoperitoneum. No pneumatosis. No acute fractures within the visualized osseous structures. Mild circumferential thickening of the distal esophagus with a small hiatus hernia. Small fat-containing bilateral inguinal hernias. There is a 5.0 x 2.6 cm hypodense tubular shaped lesion within the right lower quadrant. This appears to be contiguous with the tip of the appendix as well as adjacent to the right ovary. Therefore, this could represent an appendiceal mucocele or possibly an ovarian lesion. Regardless, this would be considered pathologic. No surrounding inflammatory change to suggest an acute process. The bladder, uterus, left ovary are within normal limits. No pelvic free fluid. No bowel wall thickening or obstruction. No retroperitoneal lymphadenopathy. Calcified plaque within the normal caliber abdominal aorta. The main portal vein is patent. The gallbladder, spleen, and adrenal glands unremarkable. Normal pancreas. A 1 cm hypodense lesion within the left hepatic lobe. This favors a cyst. There is moderate bilateral perinephric edema. Small linear areas of fat density within the left kidney which may represent areas of cortical scarring or small angiomyolipomas. No ureteral stones. No hydronephrosis. The majority the colon is decompressed. IMPRESSION: 1. Mild interlobular septal thickening within the lung bases consistent with mild pulmonary edema. No pleural effusions. 2. No bowel wall thickening or obstruction. 3. Moderate bilateral perinephric edema. This is likely chronic. Recommend correlation with urinalysis to exclude the possibility of a superimposed infection. 4. There is a 5.0 x 2.6 cm hypodense tubular shaped lesion within the right lower quadrant. This appears to be contiguous with the tip of the appendix as well as adjacent to the right ovary. Therefore, this could represent an appendiceal mucocele or possibly an ovarian lesion. Regardless, this would be considered pathologic and nonemergent surgical consultation recommended. 5. Additional findings as described above. ACT 112: Negative or not required by law. Electronically signed by: Chester Jalloh M.D. 08/31/2022 3:[address] 08/31/22 16:[address] DOSE: 1498.35 mGy.cm HISTORY: seizure TECHNIQUE: Multiaxial CT images of the head were performed without the use of intravenous contrast. Automated exposure control was utilized for this study. A dose lowering technique was utilized adhering to the principles of ALARA. Comparison: None. Findings: There is residual contrast within the brain from the recent abdomen and pelvis CT. Mild mucosal thickening within the paranasal sinuses. The mastoid air cells are clear. The calvarium and skull base are intact. There is no mass, hematoma, midline shift, acute infarct. White matter hypodensity is nonspecific but suggestive of microvascular ischemic change. The ventricles and sulci demonstrate mild age-related involutional changes. 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 Impression: Residual contrast within the brain from the recent abdomen and pelvis CT. However, no definite acute intracranial abnormality. ACT 112: Negative or not required by law. Electronically signed by: Chester Jalloh M.D. 08/31/2022 5:49 PM Chest X-Ray 09/02/22 07:55 XR chest 1V portable HISTORY: shortness of breath COMPARISON: Chest 08/31/2022. FINDINGS: No pneumothorax. The cardiac silhouette remains top normal in size. There is progressive interstitial/vascular thickening suggestive of mild congestive change. There are bibasilar linear densities and small bilateral pleural effusions which have progressed. IMPRESSION: 1. Interval development of the mild central pulmonary vascular congestion without overt edema. 2. Small bilateral pleural effusions and bibasilar densities are new from the prior study. ACT 112: Negative or not required by law. Electronically signed by: Chester Jalloh M.D. 09/02/2022 10:00 AM Medications Administered Current Inpatient Medications Acetaminophen (Acetaminophen 325 Mg Tab) 650 mg PO Q4H PRN PRN Reason: Pain or Fever Stop: 09/30/22 15:48 Last Admin: 09/01/22 13:06 Dose: 650 mg Atorvastatin Calcium (Atorvastatin 10 Mg Tab) 10 mg PO HS ERIN Stop: 09/30/22 20:59 Last Admin: 09/01/22 20:40 Dose: Not Given Dextrose (Dextrose 50% 50 Ml Syringe) 25 - 50 ml IV UD PRN; Protocol PRN Reason: Hypoglycemia Protocol Stop: 09/30/22 15:52 Dorzolamide/Timolol (Dorzolamide/Timolol 22.3/6.8mg/Ml 10 Ml Btl) 1 drops OPL AMHS ERIN Stop: 09/30/22 20:59 Last Admin: 09/02/22 09:11 Dose: 1 drops Glucagon (Glucagon For Inj 1 Mg Vial) 1 mg SQ UD PRN; Protocol PRN Reason: Hypoglycemia Protocol Stop: 09/30/22 15:52 Glucose (Glucose 40% Gel 15 Gm Tube) 15 - 30 gm PO UD PRN; Protocol PRN Reason: Hypoglycemia Protocol Stop: 09/30/22 15:52 Glucose (Glucose 10 Tab/Tube) 4 - 8 tab PO UD PRN; Protocol PRN Reason: Hypoglycemia Treatment Stop: 09/30/22 15:52 Heparin Sodium (Porcine) (Heparin Sod 5,000 Unit/0.5 Ml Vial) 5,000 units SQ Q8 ERIN Stop: 09/30/22 21:59 Last Admin: 09/02/22 05:52 Dose: 5,000 units Hydralazine HCl (Hydralazine Hcl 20 Mg/Ml Vial) 20 mg IV Q6 PRN PRN Reason: SBP >180 Stop: 09/30/22 19:00 Last Admin: 09/01/22 04:54 Dose: 20 mg Hydralazine HCl (Hydralazine Tab 50 Mg Tab) 50 mg PO AMHS ERIN Stop: 09/30/22 20:59 Last Admin: 09/02/22 09:11 Dose: 50 mg Hydromorphone HCl (Hydromorphone Inj 1 Mg/Ml Syringe) 1 mg IV Q6H PRN PRN Reason: Pain Stop: 09/15/22 10:18 Last Admin: 09/01/22 10:45 Dose: 1 mg Erythromycin Lactobionate 250 (mg/ Sodium Chloride) 255 mls @ 250 mls/hr IV Q8 ERIN Stop: 09/04/22 21:59 Last Infusion: 09/02/22 06:54 Dose: Infused Ceftriaxone Sodium 2,000 mg/ (Dextrose) 70 mls @ 100 mls/hr IV DAILY [facility]; Protocol Stop: 09/05/22 16:44 Last Infusion: 09/02/22 09:50 Dose: Infused Remdesivir 100 mg/ Sodium (Chloride) 250 mls @ 250 mls/hr IV Q24H ERIN Stop: 09/04/22 20:59 Last Infusion: 09/01/22 21:34 Dose: Infused Dexamethasone 6 mg/ Syringe 1.5 mls @ 1 mls/min IV DAILY ERIN Stop: 09/10/22 21:34 Last Admin: 09/02/22 09:08 Dose: 1 mls/min Prochlorperazine 5 mg/ Syringe 5 mls @ 5 mls/min IV Q6H PRN PRN Reason: Nausea And Vomiting Stop: 10/01/22 10:23 Last Admin: 09/01/22 10:48 Dose: 5 mls/min Pantoprazole Sodium 40 mg/ (Syringe) 10 mls @ 5 mls/min IV BID [facility] Stop: 10/01/22 20:59 Last Admin: 09/02/22 09:08 Dose: 5 mls/min Insulin Aspart (Insulin Aspart Per Unit) 0 units SC Q4 [facility]; Protocol Stop: 10/01/22 03:29 Last Admin: 09/02/22 08:11 Dose: Not Given Insulin Glargine (Lantus Per Unit Charge) 0 units SQ BID [facility]; Protocol Stop: 09/30/22 20:59 Last Admin: 09/02/22 08:39 Dose: 10 units Labetalol HCl (Labetalol Hcl 300 Mg Tab) 300 mg PO AMHS [facility] Stop: 09/30/22 20:59 Last Admin: 09/02/22 09:10 Dose: 300 mg Miscellaneous (Carbohydrates For Hypoglycemia ) 15 - 30 gm PO UD PRN PRN Reason: Hypoglycemia Protocol Stop: 09/30/22 15:52 Miscellaneous (Brimonidine [Alphagan P] 0.1 % --Order Awaiting Action) 1 each N/A QS [facility] Stop: 10/01/22 00:00 Last Admin: 09/02/22 08:12 Dose: Not Given Miscellaneous Information (Pharmacy Glycemic Mgmt Consult) 1 each N/A UD PRN PRN Reason: Consult Stop: 09/30/22 15:52 Morphine Sulfate (Morphine Sulfate 2 Mg/Ml Carp) 2 mg IV Q4 PRN PRN Reason: Pain Stop: 09/14/22 17:21 Last Admin: 09/01/22 07:48 Dose: 2 mg Ondansetron HCl (Ondansetron Inj 2 Mg/Ml 2 Ml Vial) 4 mg IV Q6H PRN PRN Reason: Nausea Stop: 09/30/22 15:48 Last Admin: 09/01/22 07:48 Dose: 4 mg Travoprost (Travoprost Z 0.004% Oph Soln 2.5 Ml Btl) 1 drops OPL QPM ERIN Stop: 09/30/22 20:59 Last Admin: 09/01/22 20:42 Dose: 1 drops Vitamin D (Cholecalciferol 1,000 Units 25 Mcg Tab) 2,000 units PO AMHS [facility] Stop: 09/30/22 20:59 Last Admin: 09/02/22 09:09 Dose: 2,000 units
--- NOTE | 2022-09-02 13:57 | Gastroenterology Progress Note ---
Date of Service September 02, 2022 Assessment & Plan (1) Gastroparesis: Plan: Doing well symptomatically from GI standpoint. Nothing to add now Admission and Anticipated Discharge Date Admission Date: August 31, 2022 Subjective Doing better. No more pain, no more nausea, no more vomiting Physical Exam Constitutional: WD/WN, vitals as above Results & Data ([facility]) Vital Signs (Past 12 Hours) Vital Signs Temp Pulse Resp BP BP Pulse Ox O2 Del Method 09/02/22 07:36 Nasal Cannula 09/02/22 09:20 78 154/80 H 95 Nasal Cannula 09/02/22 07:32 36.8 C 76 20 149/80 H 92 Nasal Cannula 09/02/22 05:24 37.1 C 75 20 143/78 H 94 Nasal Cannula O2 Flow Rate 09/02/22 07:36 3 09/02/22 09:20 09/02/22 07:32 3 09/02/22 05:24 3
--- NOTE | 2022-09-02 15:38 | Electroencephalogram ---
EEG Procedure Note Date of Service September 02, 2022 Start / End Times Start Time: 08:33 End Time: 08:53 Referring Physician Tom Reed History Shaking, torticollis Home Medication List Medication Instructions Recorded Confirmed Type acetaminophen 500 mg tablet 500 mg PO Q6 PRN Fever Or Pain 08/31/22 08/31/22 History acetaminophen 500 mg tablet 500 mg PO QPM 08/31/22 08/31/22 History atorvastatin 10 mg tablet 10 mg PO HS 08/31/22 08/31/22 History brimonidine 0.1 % eye drops 1 drp OPL BID 08/31/22 08/31/22 History (Alphagan P) cholecalciferol (vitamin D3) 50 2,000 unit PO AMHS 08/31/22 08/31/22 History mcg (2,000 unit) capsule dorzolamide 22.3 mg-timolol 6.8 1 drp OPL AMHS 08/31/22 08/31/22 History mg/mL eye drops furosemide 40 mg tablet 20 mg PO QAM 08/31/22 08/31/22 History hydralazine 25 mg tablet 50 mg PO AMHS 08/31/22 08/31/22 History insulin aspart U-100 100 unit/mL 1 - 3 unit subcut .WITH BREAKFAST 08/31/22 08/31/22 History (3 mL) subcutaneous pen (Novolog Flexpen U-100 Insulin aspart) insulin glargine 100 unit/mL (3 15 - 18 unit subcut .Q AFTERNOON & 08/31/22 08/31/22 History mL) subcutaneous pen (Basaglar HS KwikPen U-100 Insulin) labetalol 200 mg tablet 300 mg PO AMHS 08/31/22 08/31/22 History metoclopramide HCl 5 mg tablet 5 mg PO DAILYBB 08/31/22 08/31/22 History ondansetron HCl 4 mg tablet 4 mg PO Q8 PRN Nausea 08/31/22 08/31/22 History pantoprazole 40 mg tablet,delayed 40 mg PO HS 08/31/22 08/31/22 History release silver sulfadiazine 1 % topical 1 applic topical BID 08/31/22 08/31/22 History cream (SSD) travoprost 0.004 % eye drops 1 drp OPL QPM 08/31/22 08/31/22 History (Travatan Z) Inpatient Medication List Acetaminophen (Acetaminophen 325 Mg Tab) 650 mg PO Q4H PRN PRN Reason: Pain or Fever Stop: 09/30/22 15:48 Last Admin: 09/01/22 13:06 Dose: 650 mg Documented By: FERNANDO Atorvastatin Calcium (Atorvastatin 10 Mg Tab) 10 mg PO HS ERIN Stop: 09/30/22 20:59 Last Admin: 09/01/22 20:40 Dose: Not Given Documented By: Admin: 08/31/22 23:05 Dose: Not Given Documented By: NABILA Dorzolamide/Timolol (Dorzolamide/Timolol 22.3/6.8mg/Ml 10 Ml Btl) 1 drops OPL [facility] Stop: 09/30/22 20:59 Last Admin: 09/02/22 09:11 Dose: 1 drops Documented By: Admin: 09/01/22 20:41 Dose: 1 drops Documented By: Admin: 09/01/22 10:12 Dose: 1 drops Documented By: Admin: 08/31/22 22:43 Dose: 1 drops Documented By: NABILA Heparin Sodium (Porcine) (Heparin Sod 5,000 Unit/0.5 Ml Vial) 5,000 units SQ Q8 ERIN Stop: 09/30/22 21:59 Last Admin: 09/02/22 13:53 Dose: 5,000 units Documented By: Admin: 09/02/22 05:52 Dose: 5,000 units Documented By: Admin: 09/01/22 21:39 Dose: 5,000 units Documented By: Admin: 09/01/22 14:28 Dose: 5,000 units Documented By: Admin: 08/31/22 23:07 Dose: Not Given Documented By: NABILA Hydralazine HCl (Hydralazine Hcl 20 Mg/Ml Vial) 20 mg IV Q6 PRN PRN Reason: SBP >180 Stop: 09/30/22 19:00 Last Admin: 09/01/22 04:54 Dose: 20 mg Documented By: NABILA Hydralazine HCl (Hydralazine Tab 50 Mg Tab) 50 mg PO AMHS ERIN Stop: 09/30/22 20:59 Last Admin: 09/02/22 09:11 Dose: 50 mg Documented By: Admin: 09/01/22 20:41 Dose: Not Given Documented By: Admin: 09/01/22 12:10 Dose: Not Given Documented By: Admin: 08/31/22 23:06 Dose: Not Given Documented By: NABILA Hydromorphone HCl (Hydromorphone Inj 1 Mg/Ml Syringe) 1 mg IV Q6H PRN PRN Reason: Pain Stop: 09/15/22 10:18 Last Admin: 09/01/22 10:45 Dose: 1 mg Documented By: FERNANDO Ceftriaxone Sodium 2,000 mg/ (Dextrose) 70 mls @ 100 mls/hr IV DAILY ERIN; Protocol Stop: 09/05/22 16:44 Last Infusion: 09/02/22 09:50 Dose: 0 mls/hr Documented By: Admin: 09/02/22 09:08 Dose: 100 mls/hr Documented By: Infusion: 09/01/22 10:05 Dose: 0 mls/hr Documented By: Admin: 09/01/22 09:10 Dose: 100 mls/hr Documented By: Infusion: 09/01/22 07:45 Dose: 0 mls/hr Documented By: Admin: 08/31/22 17:16 Dose: 100 mls/hr Documented By: ALEX Remdesivir 100 mg/ Sodium (Chloride) 250 mls @ 250 mls/hr IV Q24H ERIN Stop: 09/04/22 20:59 Last Infusion: 09/01/22 21:34 Dose: 0 mls/hr Documented By: Admin: 09/01/22 20:33 Dose: 250 mls/hr Documented By: BRENDA Dexamethasone 6 mg/ Syringe 1.5 mls @ 1 mls/min IV DAILY ERIN Stop: 09/10/22 21:34 Last Admin: 09/02/22 09:08 Dose: 1 mls/min Documented By: Admin: 09/01/22 08:03 Dose: 1 mls/min Documented By: Admin: 08/31/22 22:53 Dose: 1 mls/min Documented By: NABILA Prochlorperazine 5 mg/ Syringe 5 mls @ 5 mls/min IV Q6H PRN PRN Reason: Nausea And Vomiting Stop: 10/01/22 10:23 Last Admin: 09/01/22 10:48 Dose: 5 mls/min Documented By: FERNANDO Pantoprazole Sodium 40 mg/ (Syringe) 10 mls @ 5 mls/min IV BID ERIN Stop: 10/01/22 20:59 Last Admin: 09/02/22 09:08 Dose: 5 mls/min Documented By: Admin: 09/01/22 20:44 Dose: 5 mls/min Documented By: BRENDA Insulin Aspart (Insulin Aspart Per Unit) 0 units SC Q4 ERIN; Protocol Stop: 10/01/22 03:29 Last Admin: 09/02/22 13:51 Dose: 9 units Documented By: JUVENAL Co-signed By: YIFAN Admin: 09/02/22 08:11 Dose: Not Given Documented By: Admin: 09/02/22 03:51 Dose: Not Given Documented By: Admin: 09/02/22 00:03 Dose: Not Given Documented By: Admin: 09/01/22 20:31 Dose: Not Given Documented By: Admin: 09/01/22 16:07 Dose: Not Given Documented By: Admin: 09/01/22 12:57 Dose: 3 units Documented By: FERNANDO Co-signed By: YIFAN Admin: 09/01/22 08:51 Dose: 3 units Documented By: FERNANDO Co-signed By: DEANNE Admin: 09/01/22 03:29 Dose: 4 units Documented By: NABILA Co-signed By: Insulin Glargine (Lantus Per Unit Charge) 0 units SQ BID ERIN; Protocol Stop: 09/30/22 20:59 Last Admin: 09/02/22 08:39 Dose: 10 units Documented By: JUVENAL Co-signed By: ONEIL Admin: 09/01/22 22:08 Dose: Not Given Documented By: Admin: 09/01/22 00:14 Dose: 30 units Documented By: NABILA Co-signed By: GCKeith Labetalol HCl (Labetalol Hcl 300 Mg Tab) 300 mg PO AMHS ERIN Stop: 09/30/22 20:59 Last Admin: 09/02/22 09:10 Dose: 300 mg Documented By: Admin: 09/01/22 20:41 Dose: Not Given Documented By: Admin: 09/01/22 12:10 Dose: Not Given Documented By: Admin: 08/31/22 23:06 Dose: Not Given Documented By: NABILA Miscellaneous (Brimonidine [Alphagan P] 0.1 % --Order Awaiting Action) 1 each N/A QS ERIN Stop: 10/01/22 00:00 Last Admin: 09/02/22 08:12 Dose: Not Given Documented By: Admin: 09/02/22 00:02 Dose: Not Given Documented By: Admin: 09/01/22 16:09 Dose: Not Given Documented By: Admin: 09/01/22 09:18 Dose: Not Given Documented By: Admin: 09/01/22 00:52 Dose: Not Given Documented By: NABILA Morphine Sulfate (Morphine Sulfate 2 Mg/Ml Carp) 2 mg IV Q4 PRN PRN Reason: Pain Stop: 09/14/22 17:21 Last Admin: 09/01/22 07:48 Dose: 2 mg Documented By: Admin: 08/31/22 22:32 Dose: 2 mg Documented By: Admin: 08/31/22 18:00 Dose: 2 mg Documented By: ALEX Ondansetron HCl (Ondansetron Inj 2 Mg/Ml 2 Ml Vial) 4 mg IV Q6H PRN PRN Reason: Nausea Stop: 09/30/22 15:48 Last Admin: 09/01/22 07:48 Dose: 4 mg Documented By: Admin: 09/01/22 00:50 Dose: 4 mg Documented By: Admin: 08/31/22 18:01 Dose: 4 mg Documented By: ALEX Travoprost (Travoprost Z 0.004% Oph Soln 2.5 Ml Btl) 1 drops OPL QPM ERIN Stop: 09/30/22 20:59 Last Admin: 09/01/22 20:42 Dose: 1 drops Documented By: Admin: 08/31/22 22:43 Dose: 1 drops Documented By: NABILA Vitamin D (Cholecalciferol 1,000 Units 25 Mcg Tab) 2,000 units PO AMHS ERIN Stop: 09/30/22 20:59 Last Admin: 09/02/22 09:09 Dose: 2,000 units Documented By: Admin: 09/01/22 20:41 Dose: Not Given Documented By: Admin: 09/01/22 12:10 Dose: Not Given Documented By: Admin: 08/31/22 23:06 Dose: Not Given Documented By: NABILA Discontinued Medications Furosemide (Furosemide Inj 20 Mg/2 Ml Vial) 20 mg IV ONE ONE Stop: 09/02/22 11:58 Last Admin: 09/02/22 12:26 Dose: 20 mg Documented By: JUVENAL Sodium Chloride (Nss 1000ml) 1,000 mls @ 999 mls/hr IV .Q1H1M ONE Stop: 08/31/22 13:10 Last Infusion: 08/31/22 14:55 Dose: 0 mls/hr Documented By: Admin: 08/31/22 12:43 Dose: 999 mls/hr Documented By: KASSANDRA Lactated Ringer's (Lr) 1,000 mls @ 100 mls/hr IV .Q10H ERIN Stop: 09/02/22 05:59 Last Infusion: 09/02/22 06:38 Dose: 0 mls/hr Documented By: Admin: 09/01/22 20:30 Dose: 100 mls/hr Documented By: Infusion: 09/01/22 20:10 Dose: 100 mls/hr Documented By: Admin: 09/01/22 10:10 Dose: 100 mls/hr Documented By: Infusion: 09/01/22 04:08 Dose: 100 mls/hr Documented By: Admin: 08/31/22 18:08 Dose: 100 mls/hr Documented By: ALEX Erythromycin Lactobionate 250 (mg/ Sodium Chloride) 255 mls @ 250 mls/hr IV Q8 ERIN Stop: 09/04/22 21:59 Last Infusion: 09/02/22 06:54 Dose: 0 mls/hr Documented By: Admin: 09/02/22 05:52 Dose: 250 mls/hr Documented By: Infusion: 09/01/22 23:05 Dose: 0 mls/hr Documented By: Admin: 09/01/22 21:39 Dose: 250 mls/hr Documented By: Infusion: 09/01/22 15:50 Dose: 0 mls/hr Documented By: Admin: 09/01/22 14:20 Dose: 250 mls/hr Documented By: Infusion: 09/01/22 07:45 Dose: 0 mls/hr Documented By: Admin: 09/01/22 05:31 Dose: 250 mls/hr Documented By: Infusion: 08/31/22 23:56 Dose: 0 mls/hr Documented By: Admin: 08/31/22 22:54 Dose: 250 mls/hr Documented By: NABILA Pantoprazole Sodium 40 mg/ (Syringe) 10 mls @ 5 mls/min IV DAILY ERIN Stop: 09/30/22 19:50 Last Admin: 09/01/22 08:03 Dose: 5 mls/min Documented By: Admin: 08/31/22 22:43 Dose: 5 mls/min Documented By: NABILA Remdesivir 200 mg/ Sodium (Chloride) 250 mls @ 125 mls/hr IV ONE STA; Protocol Stop: 08/31/22 23:28 Last Infusion: 09/01/22 02:55 Dose: 0 mls/hr Documented By: Admin: 09/01/22 00:51 Dose: 125 mls/hr Documented By: NABILA Promethazine HCl 12.5 mg/ (Sodium Chloride) 50.5 mls @ 202 mls/hr IV NOW STA Stop: 09/01/22 03:06 Last Infusion: 09/01/22 03:30 Dose: 0 mls/hr Documented By: Admin: 09/01/22 03:13 Dose: 202 mls/hr Documented By: NABILA Magnesium Sulfate/Dextrose (Magnesium Sulfate / D5w) 1 gm in 100 mls @ 50 mls/hr IV Q2H ERIN Stop: 09/01/22 11:59 Last Infusion: 09/01/22 14:15 Dose: 0 mls/hr Documented By: Admin: 09/01/22 12:10 Dose: 50 mls/hr Documented By: Infusion: 09/01/22 12:07 Dose: 50 mls/hr Documented By: Admin: 09/01/22 10:07 Dose: 50 mls/hr Documented By: FERNANDO Lactated Ringer's (Lr) 1,000 mls @ 80 mls/hr IV .[id number] ERIN Stop: 09/02/22 19:59 Last Infusion: 09/02/22 12:26 Dose: 0 mls/hr Documented By: [facility] Infusion: 09/02/22 10:18 Dose: 80 mls/hr Documented By: Infusion: 09/02/22 09:18 Dose: 0 mls/hr Documented By: [facility] Admin: 09/02/22 09:09 Dose: 80 mls/hr Documented By: JUVENAL Insulin Aspart (Insulin Aspart Per Unit) 0 units SC ACHS [facility]; Protocol Stop: 09/30/22 16:29 Last Admin: 09/01/22 09:18 Dose: Not Given Documented By: Admin: 08/31/22 17:56 Dose: 4 units Documented By: ALEX Co-signed By: RAFFAELE Insulin Glargine (Lantus Per Unit Charge) 20 units SQ NOW ONE Stop: 09/01/22 09:01 Last Admin: 09/01/22 08:52 Dose: 20 units Documented By: FERNANDO Co-signed By: DEANNE Ioversol (Ioversol 350 Mg 100ml Prefilled Syringe) 85 ml IV ONCE ONE Stop: 08/31/22 15:00 Last Admin: 08/31/22 15:05 Dose: 85 ml Documented By: CARLIE Metoclopramide HCl (Metoclopramide Hcl Inj 5 Mg/Ml 2 Ml Vial) 5 mg IV ONE ONE Stop: 08/31/22 13:59 Last Admin: 08/31/22 14:28 Dose: 5 mg Documented By: KASSANDRA Morphine Sulfate (Morphine Sulfate 4 Mg/Ml 1 Ml Carp\Vial) 4 mg IV NOW STA Stop: 08/31/22 13:14 Last Admin: 08/31/22 13:21 Dose: 4 mg Documented By: KASSANDRA Morphine Sulfate (Morphine Sulfate 2 Mg/Ml Carp) 2 mg IV NOW STA Stop: 08/31/22 14:37 Last Admin: 08/31/22 14:40 Dose: 2 mg Documented By: KASSANDRA Ondansetron HCl (Ondansetron Inj 2 Mg/Ml 2 Ml Vial) 4 mg IV NOW STA Stop: 08/31/22 12:11 Last Admin: 08/31/22 12:42 Dose: 4 mg Documented By: KASSANDRA Description This is a 21 electrode EEG with a single channel dedicated to limited EKG. The electrodes were placed in accordance with the International 10-20 system. Video is recorded throughout this study. Interpretation During restful wakefulness, there is no distinctive posterior rhythm. Background activity shows low amplitude and diffuse slowing, composed of 4 to 7 Hz, low and moderate amplitude theta, intermixed with mostly frontal, intermittent, 2 to 3 Hz delta waveforms. Photic stimulations do not induce posterior driving responses. Hyperventilation is not attempted. There is no sleep-related pattern. There are no electrographic seizures, epileptogenic discharges or asymmetries. During the study, the patient shows episodes of shaking, and tensing up, without electrographic epileptiform correlates. Impression: This is an abnormal EEG, recorded in wakefulness only. Diffuse slowing with low amplitude is consistent with bihemispheric dysfunction, as seen in encephalopathies or neurodegenerative disorders. There are no electrographic seizures or epileptogenic discharges. Episodes of shaking and tensing up are not related to seizures. Clinical Correlation Normal interictal routine EEG does not rule out seizure disorder. Clinical correlation is suggested.
[2022-09-02 16:29] LABS: BUN Creatinine Ratio 21.8 (10-20); Calcium 7.7 mg/dl (8.5-10.1); Creatinine Clr Calc Pharmacy 22.9 ml/min; Est GFR (African American) 27.2 ml/min; Est GFR (Non-African American) 23.5 ml/min; Potassium 3.8 mmol/L (3.5-5.1)
[2022-09-02] MEDS ORDERED: HYDROmorphone INJ 0.5 MG/0.5 ML SYR IV PRN (17:00)
[2022-09-02] MEDS: ATORVASTATIN 10 MG TAB PO SCH (21:02)
[2022-09-02] MEDS: TRAVOPROST Z 0.004% OPH SOLN 2.5 ML BTL OPL SCH (21:03)
[2022-09-03] MEDS: INSULIN ASPART PER UNIT SC SCH ×6 (00:50→21:38)
[2022-09-03] MEDS: HEPARIN SOD 5,000 UNIT/0.5 ML VIAL SQ SCH ×3 (05:46→20:28)
[2022-09-03 06:08] LABS: Hematocrit (blood only) 29.5 % (34.1-44.9); Mean Corpuscular Hemoglobin 26.5 pg (25.0-34.0); Mean Corpuscular Hgb Conc 33.9 g/dL (32.0-36.0); Mean Platelet Volume 11.2 fL (9.4-12.3); Platelet Count 269 K/uL (130-400); RDW Coefficient of Variation 14.8 % (11.5-14.5); RDW Standard Deviation 41.7 fL (36.4-46.3); Red Blood Count 3.78 M/uL (3.93-5.22); White Blood Count 9.46 K/ul (4.8-10.8)
[2022-09-03 06:30] LABS: Albumin Globulin Ratio 1.3 (0.9-2); Albumin Level 3.3 gm/dl (3.4-5.0); BUN Creatinine Ratio 26.5 (10-20); Bilirubin,Total 0.3 mg/dl (0.2-1.0); C Reactive Protein 0.53 mg/dl (0-0.5); Creatinine Clr Calc Pharmacy 23.9 ml/min; Est GFR (African American) 28.7 ml/min; Est GFR (Non-African American) 24.7 ml/min; Globulin 2.6 gm/dl (2.5-4.0); Magnesium 1.9 mg/dl (1.7-2.4); Phosphorus 3.6 mg/dl (2.5-4.9); Potassium 3.8 mmol/L (3.5-5.1); Total Protein 5.9 gm/dl (6.0-8.3)
[2022-09-03 06:43] LABS: Ferritin 32.9 ng/ml (8-388)
[2022-09-03] MEDS: cefTRIAXone SODIUM 2,000 MG in DEXTROSE 5% 50 ML IV SCH (07:52)
[2022-09-03] MEDS: LANTUS PER UNIT CHARGE SQ SCH ×2 (08:14→21:39)
[2022-09-03] MEDS: CHOLECALCIFEROL 1,000 UNITS 25 MCG TAB PO SCH ×2 (08:25→20:27)
[2022-09-03] MEDS: LABETALOL HCL 300 MG TAB PO SCH ×2 (08:25→20:28)
[2022-09-03] MEDS: hydrALAZINE TAB 50 MG TAB PO SCH ×2 (08:25→20:28)
[2022-09-03] MEDS: PANTOprazole 40 MG TAB PO SCH (08:26)
[2022-09-03] MEDS: dexAMETHasone 6 MG in SYRINGE 0 ML IV SCH (08:27)
[2022-09-03] MEDS: DORZOLAMIDE/TIMOLOL 22.3/6.8MG/ML 10 ML BTL OPL SCH ×2 (08:27→20:28)
--- NOTE | 2022-09-03 08:47 | Pharmacy Report ---
Pharmacy Glycemic Short Note 2 - Date of Service September 03, 2022 - Glycemic Short BSG Results (Last 24 hours): 09/02/22 09/02/22 09/02/22 11:57 15:50 16:03 Glucose 231 H POC Glucose 191 H 224 H 09/02/22 09/03/22 09/03/22 20:07 00:09 04:16 Glucose POC Glucose 138 H 75 98 09/03/22 09/03/22 05:37 07:49 Glucose 99 POC Glucose 113 H OUTPATIENT ANTIDIABETIC REGIMEN: * Lantus 35 units SC AM * Lantus 30 units SC HS * HbA1C = 7.8% (08/31/22) ASSESSMENT: 09/03: * Stressors stable. Continues on dexamethasone. * Overnight BSG's and AM random BSG below goal range. Will decrease Lantus by 20% * Post-prandial elevations noted yesterday, but corrected down by HS. Will tighten CHO ratio, but will loosen correction factor in response to help prevent overcorrection with additional prandial coverage 09/02: * Fasting BSG was 115 mg/dL this AM. Adjusted Lantus scale slightly this AM. * Remains on IV Dexamethasone and abx. No change to Novolog. 09/01: * Ms Villeda is an 82 y/o F with a PMH of T2DM on insulin at home who presents with COVID and gastroparesis. * Patient's BSGs on admission were 239 mg/dL. She was given 30 units of Lantus yesterday evening. * Patient started on dexamethasone 6 mg IV daily yesterday. * For Lantus, will have scale corresponding to weight-based dosing. A hold is available if BSGs trend downwards too much. * Novolog weight-based scale of 3. PLAN FOR INPATIENT GLYCEMIC CONTROL: * Basal insulin * Lantus 8 units SC BID * Bolus insulin * NovoLog per scale ACHS or Q6hrs while NPO * Goal Range: Low 110 mg/dL - High 140 mg/dL * Correction Factor: 25 mg/dL/unit * Nutritional / Prandial insulin per carb ratio of 1 unit per 6 grams CHO consumed
[2022-09-03] MEDS ORDERED: LACTATED RINGER'S 1,000 ML IV SCH (10:45)
--- NOTE | 2022-09-03 11:32 | Communication Note ---
Date of Service: September 03, 2022 Patient not examined today, chart reviewed. Vitals stable, afebrile. No leukocytosis. Diet has been advanced to low fiber low fat diet. Gynecology evaluated patient and CA-125 within normal limits. Patient should follow-up with Dr. Stephenson in [facility] surgery office for follow-up of CT scan findings for possible appendiceal lesion. No surgical intervention required or recommended at this time due to active COVID infection. Surgical services signing off, please call with questions/concerns. Discussed with Dr. Mccrary who agrees with above.
--- NOTE | 2022-09-03 11:33 | Consultation Report ---
NEPHROLOGY CONSULTATION NOTE DATE OF SERVICE: 09/03/2022. REASON FOR CONSULTATION: Acute renal failure and hyponatremia. HISTORY OF PRESENT ILLNESS: The patient is an 82-year-old female with longstanding history of type 2 diabetes, gastroparesis, hyperlipidemia and hypertension, who presented to the hospital with 3 days of intractable nausea and vomiting with abdominal pain. The nausea has been going on for several months and she had seen a stock clerk self service store also for this who prescribed metoclopramide for gastroparesis, but she had significant side effect with metoclopramide and was stopped. The patient was found to be COVID positive and she also had sore throat, loss of taste, rhinorrhea, dry cough and very poor appetite for the last 1-2 weeks. In the Emergency Department, her vital signs were within reasonable range. Sodium was 134 and creatinine was 1.37, but we do not know her actual baseline at this point. She is still requiring 3 liters oxygen, but she feels better. She also claims her appetite is getting better and she actually finished her breakfast, 100%. As for the labs, her kidney function continued to get worse from 1.37 on admission to 1.4-1.6 and yesterday was 1.93, after which I was consulted. Patient has received some IV fluid and with that her creatinine this morning was down a little bit to 1.85. Sodium has remained within the range of 134-137 and this morning was 135. The patient is making urine, but she does not have a Modi catheter, so I do not know the actual amount. ALLERGIES: OXYCODONE. MEDICATIONS: Home medication list was extensively reviewed and is as per the reconciliation list and the H and P. Inpatient medication was also reviewed in full detail. PAST MEDICAL AND SURGICAL HISTORY: Includes type 2 diabetes of longstanding duration, gastroparesis, neuropathy, hyperlipidemia, hypertension. SOCIAL HISTORY: Former smoker. No alcohol. She lives in her home. REVIEW OF SYSTEMS: As detailed in HPI; unless stated otherwise, 12 systems reviewed and negative. PHYSICAL EXAMINATION: GENERAL: Elderly white female who is awake, alert, oriented x3. She is not in any overt respiratory distress. She is able to give me her detailed account of her medical problem. VITAL SIGNS: Blood pressure 145/77, pulse rate 70, temperature 37.1, 97% on 5 liters nasal cannula. CHEST: Bilateral decreased breath sounds, occasional crackles. CARDIOVASCULAR: S1 and S2, regular. ABDOMEN: Soft, nontender, obese. EXTREMITIES: Show trace edema. LABORATORY TEST: From this morning shows a creatinine is down a little bit to 1.85. BUN is 49. Sodium is 135, potassium 3.8, calcium 8.0. ASSESSMENT AND PLAN: An 82-year-old female with longstanding diabetes with gastroparesis and neuropathy with a near normal baseline creatinine, admitted with COVID infection. I have been consulted for acute renal failure and hyponatremia. Acute renal failure: Creat got worse while being inpatient and that usually goes with some degree of Acute tubular ischemia/necrosis. We do not know her baseline creatinine for sure, but even at admission, it was near normal at 1.37. She is making urine. Her vital signs especially blood pressure is reasonable. It is not unreasonable to see some degree of acute renal failure and hyponatremia in patients with COVID, especially in elderly patient. Sodium is borderline at this point. No further workup needed for this. daily labs. No iv fluid and no lasix for today. Thank you very much for the consult. Job ID: [id number] [facility]
--- NOTE | 2022-09-03 12:18 | Hospitalist Progress Note ---
Date of Service September 03, 2022 Assessment & Plan (1) COVID-19: Plan: - mild symptoms of sore throat and rhinorrhea - now resolved - persistent dry cough with some production - continue dexamethasone x10 days - holding remdesivir as family is concerned for kidney function - explained to family that there is no real risk of worsening renal function with medication but insisted on holding this medication - advised of risks of holding - oxygen as needed to keep SpO2 >92% - IVF stopped due to possible pulmonary congestion with aggressive IVF, but no history of CHF - given 1 dose 20mg IV lasix 09/02/2022 with improvement in respiratory status - wean O2 as tolerated - on 3L NC at this time (2) MARY KATE (acute kidney injury): Plan: - likely in the setting of decreased po intake and n/v/d - IVF in ed - trend Cr - holding IVF for now given pulm edema 09/02/2022 - s/p IV lasix - creatinine peaked at 1.93 --> now trending down - renal consulted at time of Cr 1.93 - recommend no further work up - encourage po intake - avoid nephrotoxic meds (3) Gastroparesis: Plan: - persistent n/v and abdominal pain in the setting of diabetes - reports recent use of metoclopramide with ?torticollis side effects? - will avoid metoclopramide - advance diet as tolerated - tolerated low fat, low fiber diet - s/o IVF and IV erythromycin - GI consult - symptomatic treatment - insulin for DM and good BG control in setting of gastroparesis - resolved (4) DM2 (diabetes mellitus, type 2): Plan: - A1c 7.8% 08/2022 - on lantus and prandials - will continue here - diabetic diet when tolerating PO - pharmacy insulin management (5) HTN (hypertension): Plan: - continue home medications - IV prns as needed if not tolerating PO (6) Anemia: Plan: - hgb 10.9 on admission - unclear baseline - no bleeding noted - iron studies, ferritin, b12, folate - likely chronic disease - monitor for now (7) Hyponatremia: Plan: - likely from decreased po and COVID19 - IVF as above - monitor Na in AM labs (8) UTI (urinary tract infection): Plan: - positive UA, positive symptoms of frequency - will treat with IVF - ceftriaxone for 5 days (4/5) Plan DVT ppx: heparin SC Code Status: Full Code Dispo: med/surg [facility] Admission and Anticipated Discharge Date Admission Date: August 31, 2022 Subjective Patient with DM admitted with gastroparesis most likely and COVID requiring oxygen. Started on erythromycin, dexamethasone, remdesivir, IVF. GI consulted and recommend symptomatic treatment. Surgery consulted for abdominal lesion, [employer] Senior Developer consulted for the same. NEurolgoy consulted for ?seizure vs metoclopromide adverse effect of torticollis. Avoid metoclopromide, seisure suspicion low. EEG negative. [employer] sent CA-125 to evaluate abdominal lesion on CT, which was negative. To follow up with surgery in [address] Acute kidney injury developed in setting of COVID, renal consulted, no further work up, Cr improving. No nausea, tolerating diet well, no abdominal pain. Cough still present. Denies diarrhea, chest pain, shortness of breath. still having cough with occasional yellow sputum Review of Systems Review of Systems: All systems reviewed & are unremarkable except as noted in Subjective Physical Exam Physical Exam: GENERAL: awake and alert in bed, breakfast eaten, ill appearing but improving EYE EXAM: injected conjunctiva. OROPHARYNX: mucous membranes are dry NECK: supple, no nuchal rigidity, no adenopathy, non-tender LUNGS: CTAB. Normal chest wall mechanics, on NC, not in respiratory distress HEART: no murmurs, S1 normal and S2 normal ABDOMEN: abdomen soft, nontender to palpation, normal bowel sounds, no masses, no rebound or guarding. UPPER EXTREMITIES: upper extremities are grossly normal. LOWER EXTREMITIES: No pitting edema. NEURO EXAM: Normal sensorium, cranial nerves II-XII grossly intact, normal speech, no gross weakness of arms, no gross weakness of legs. Results & Data Results & Data ([facility]) Vital Signs (Past 12 Hours) Vital Signs Temp Pulse Resp BP Pulse Ox O2 Del Method O2 Flow Rate 09/03/22 07:30 Nasal Cannula 5 09/03/22 07:46 37.1 C 70 18 145/77 H 97 Nasal Cannula 5 Diagnostic Findings Laboratory Results WBC 9.46 K/ul (4.8-10.8) 09/03/22 05:37 RBC 3.78 M/uL (3.93-5.22) L 09/03/22 05:37 Hgb 10.0 g/dl (12.0-16.0) L 09/03/22 05:37 Hct 29.5 % (34.1-44.9) L 09/03/22 05:37 MCV 78.0 fL (80.0-100.0) L 09/03/22 05:37 MCH 26.5 pg (25.0-34.0) 09/03/22 05:37 MCHC 33.9 g/dL (32.0-36.0) 09/03/22 05:37 RDW Std Deviation 41.7 fL (36.4-46.3) 09/03/22 05:37 RDW Coeff of Maegan 14.8 % (11.5-14.5) H 09/03/22 05:37 Plt Count 269 K/uL (130-400) 09/03/22 05:37 MPV 11.2 fL (9.4-12.3) 09/03/22 05:37 Immature Gran % (Auto) 0.2 % 09/01/22 06:10 Neut % (Auto) 80.8 % 09/01/22 06:10 Lymph % (Auto) 15.0 % 09/01/22 06:10 [place] % (Auto) 4.0 % 09/01/22 06:10 Eos % (Auto) 0.0 % 09/01/22 06:10 Baso % (Auto) 0.0 % 09/01/22 06:10 Neut # (Auto) 4.89 K/uL (1.4-6.5) 09/01/22 06:10 Lymph # (Auto) 0.91 K/uL (1.2-3.4) L 09/01/22 06:10 [place] # (Auto) 0.24 K/uL (0.24-0.82) 09/01/22 06:10 Eos # (Auto) 0.00 K/uL (0-0.50) 09/01/22 06:10 Baso # (Auto) 0.00 K/uL (0-0.2) 09/01/22 06:10 Immature Gran # (Auto) 0.01 K/uL (0.00-0.02) 09/01/22 06:10 PT 10.8 Seconds (9.0-12.0) 09/01/22 06:10 INR 1.0 (0.9-1.1) 09/01/22 06:10 Sodium 135 mmol/L (136-145) L 09/03/22 05:37 Potassium 3.8 mmol/L (3.5-5.1) 09/03/22 05:37 Chloride 103 mmol/L (98-107) 09/03/22 05:37 Carbon Dioxide 23 mmol/L (21-32) 09/03/22 05:37 Anion Gap 9 (3-11) 09/03/22 05:37 BUN 49 mg/dl (6-23) H 09/03/22 05:37 Creatinine 1.85 mg/dl (0.6-1.2) H 09/03/22 05:37 Est Cr Clr Drug Dosing 23.9 ml/min 09/03/22 05:37 Est GFR ( Amer) 28.7 ml/min 09/03/22 05:37 Est GFR (Non-Af Amer) 24.7 ml/min 09/03/22 05:37 BUN/Creatinine Ratio 26.5 (10-20) H 09/03/22 05:37 Glucose 99 mg/dl (70-99(Fasting)) 09/03/22 05:37 POC Glucose 141 mg/dl (70-99) H 09/03/22 11:56 Estimat Average Glucose Cancelled 09/01/22 06:10 Hemoglobin A1c Cancelled 09/01/22 06:10 Calcium 8.0 mg/dl (8.5-10.1) L 09/03/22 05:37 Phosphorus 3.6 mg/dl (2.5-4.9) 09/03/22 05:37 Magnesium 1.9 mg/dl (1.7-2.4) 09/03/22 05:37 Iron 30 mcg/dl (35-150) L 08/31/22 12:50 Unsaturated IBC 297 mcg/dl (155-355) 08/31/22 12:50 Ferritin 32.9 ng/ml (8-388) 09/03/22 05:37 Total Bilirubin 0.3 mg/dl (0.2-1.0) 09/03/22 05:37 AST 50 U/L (13-39) H 09/03/22 05:37 ALT 22 U/L (7-52) 09/03/22 05:37 Alkaline Phosphatase 65 U/L (34-104) 09/03/22 05:37 C-Reactive Protein 0.53 mg/dl (0-0.5) H 09/03/22 05:37 Total Protein 5.9 gm/dl (6.0-8.3) L 09/03/22 05:37 Albumin 3.3 gm/dl (3.4-5.0) L 09/03/22 05:37 Globulin 2.6 gm/dl (2.5-4.0) 09/03/22 05:37 Albumin/Globulin Ratio 1.3 (0.9-2) 09/03/22 05:37 Lipase 12 U/L (11-82) 08/31/22 12:50 CA 125 Antigen 10 U/mL (<35) 09/02/22 11:12 Vitamin B12 702 pg/ml (180-914) 08/31/22 18:07 Folate 13.74 ng/ml (>5.38) 08/31/22 18:07 Procalcitonin < 0.05 ng/ml (0-0.5) 09/03/22 05:37 Urine Color Yellow 08/31/22 13:33 Urine Appearance Cloudy (Clear) A 08/31/22 13:33 Urine pH 6.0 (4.5-7.5) 08/31/22 13:33 Ur Specific [place] 1.013 (1.000-1.030) 08/31/22 13:33 Urine Protein 3+ (Negative) H 08/31/22 13:33 Urine Glucose (UA) 2+ (Negative) H 08/31/22 13:33 Urine Ketones 1+ (Negative) H 08/31/22 13:33 Urine Blood Trace (Negative) H 08/31/22 13:33 Urine Nitrite Negative (Negative) 08/31/22 13:33 Urine Bilirubin Negative (Negative) 08/31/22 13:33 Urine Urobilinogen Negative (Negative) 08/31/22 13:33 Ur Leukocyte Esterase Trace (Negative) H 08/31/22 13:33 Urine WBC (Auto) >30 /hpf (0-5) H 08/31/22 13:33 Urine RBC (Auto) 0-4 /hpf (0-4) 08/31/22 13:33 U Hyaline Cast (Auto) 1-5 /lpf (0-5) 08/31/22 13:33 U Epithel Cells (Auto) >30 /lpf (0-5) H 08/31/22 13:33 Urine Bacteria (Auto) 4+ (Negative) H 08/31/22 13:33 SARS-CoV-2, RNA, NAAT POSITIVE (NEGATIVE) A* 08/31/22 12:50 Impressions Abdomen/Pelvis CT 08/31/22 12:[address] WITH IV CONTRAST CT DOSE: 641.61 mGy.cm HISTORY: Nausea. Vomiting. TECHNIQUE: Multiaxial CT images of the abdomen and pelvis were performed following the use of intravenous contrast. A dose lowering technique was utilized adhering to the principles of ALARA. COMPARISON STUDY: None. FINDINGS: Mild interlobular septal thickening at the lung bases consistent with pulmonary edema. Fusion of the L4-5 vertebral bodies. There are severe degenerative disc disease at L3-L4 and L5-S1. No pneumoperitoneum. No pneumatosis. No acute fractures within the visualized osseous structures. Mild circumferential thickening of the distal esophagus with a small hiatus hernia. Small fat-containing bilateral inguinal hernias. There is a 5.0 x 2.6 cm hypodense tubular shaped lesion within the right lower quadrant. This appears to be contiguous with the tip of the appendix as well as adjacent to the right ovary. Therefore, this could represent an appendiceal mucocele or possibly an ovarian lesion. Regardless, this would be considered pathologic. No surrounding inflammatory change to suggest an acute process. The bladder, uterus, left ovary are within normal limits. No pelvic free fluid. No bowel wall thickening or obstruction. No retroperitoneal lymphadenopathy. Calcified plaque within the normal caliber abdominal aorta. The main portal vein is patent. The gallbladder, spleen, and adrenal glands unremarkable. Normal pancreas. A 1 cm hypodense lesion within the left hepatic lobe. This favors a cyst. There is moderate bilateral perinephric edema. Small linear areas of fat density within the left kidney which may represent areas of cortical scarring or small angiomyolipomas. No ureteral stones. No hydronephrosis. The majority the colon is decompressed. IMPRESSION: 1. Mild interlobular septal thickening within the lung bases consistent with mild pulmonary edema. No pleural effusions. 2. No bowel wall thickening or obstruction. 3. Moderate bilateral perinephric edema. This is likely chronic. Recommend correlation with urinalysis to exclude the possibility of a superimposed infection. 4. There is a 5.0 x 2.6 cm hypodense tubular shaped lesion within the right lower quadrant. This appears to be contiguous with the tip of the appendix as well as adjacent to the right ovary. Therefore, this could represent an appendiceal mucocele or possibly an ovarian lesion. Regardless, this would be considered pathologic and nonemergent surgical consultation recommended. 5. Additional findings as described above. ACT 112: Negative or not required by law. Electronically signed by: Chester Jalloh M.D. 08/31/2022 3:[address] 08/31/22 16:[address] DOSE: 1498.35 mGy.cm HISTORY: seizure TECHNIQUE: Multiaxial CT images of the head were performed without the use of intravenous contrast. Automated exposure control was utilized for this study. A dose lowering technique was utilized adhering to the principles of ALARA. Comparison: None. Findings: There is residual contrast within the brain from the recent abdomen and pelvis CT. Mild mucosal thickening within the paranasal sinuses. The mastoid air cells are clear. The calvarium and skull base are intact. There is no mass, hematoma, midline shift, acute infarct. White matter hypodensity is nonspecific but suggestive of microvascular ischemic change. The ventricles and sulci demonstrate mild age-related involutional changes. 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 Impression: Residual contrast within the brain from the recent abdomen and pelvis CT. However, no definite acute intracranial abnormality. ACT 112: Negative or not required by law. Electronically signed by: Chester Jalloh M.D. 08/31/2022 5:49 PM Chest X-Ray 09/02/22 07:55 XR chest 1V portable HISTORY: shortness of breath COMPARISON: Chest 08/31/2022. FINDINGS: No pneumothorax. The cardiac silhouette remains top normal in size. There is progressive interstitial/vascular thickening suggestive of mild congestive change. There are bibasilar linear densities and small bilateral pleural effusions which have progressed. IMPRESSION: 1. Interval development of the mild central pulmonary vascular congestion without overt edema. 2. Small bilateral pleural effusions and bibasilar densities are new from the prior study. ACT 112: Negative or not required by law. Electronically signed by: Chester Jalloh M.D. 09/02/2022 10:00 AM Medications Administered Current Inpatient Medications Acetaminophen (Acetaminophen 325 Mg Tab) 650 mg PO Q4H PRN PRN Reason: Pain or Fever Stop: 09/30/22 15:48 Last Admin: 09/01/22 13:06 Dose: 650 mg Atorvastatin Calcium (Atorvastatin 10 Mg Tab) 10 mg PO HS ERIN Stop: 09/30/22 20:59 Last Admin: 09/02/22 21:02 Dose: 10 mg Dextrose (Dextrose 50% 50 Ml Syringe) 25 - 50 ml IV UD PRN; Protocol PRN Reason: Hypoglycemia Protocol Stop: 09/30/22 15:52 Dorzolamide/Timolol (Dorzolamide/Timolol 22.3/6.8mg/Ml 10 Ml Btl) 1 drops OPL AMHS ERIN Stop: 09/30/22 20:59 Last Admin: 09/03/22 08:27 Dose: 1 drops Glucagon (Glucagon For Inj 1 Mg Vial) 1 mg SQ UD PRN; Protocol PRN Reason: Hypoglycemia Protocol Stop: 09/30/22 15:52 Glucose (Glucose 40% Gel 15 Gm Tube) 15 - 30 gm PO UD PRN; Protocol PRN Reason: Hypoglycemia Protocol Stop: 09/30/22 15:52 Glucose (Glucose 10 Tab/Tube) 4 - 8 tab PO UD PRN; Protocol PRN Reason: Hypoglycemia Treatment Stop: 09/30/22 15:52 Heparin Sodium (Porcine) (Heparin Sod 5,000 Unit/0.5 Ml Vial) 5,000 units SQ Q8 ERIN Stop: 09/30/22 21:59 Last Admin: 09/03/22 05:46 Dose: 5,000 units Hydralazine HCl (Hydralazine Hcl 20 Mg/Ml Vial) 20 mg IV Q6 PRN PRN Reason: SBP >180 Stop: 09/30/22 19:00 Last Admin: 09/01/22 04:54 Dose: 20 mg Hydralazine HCl (Hydralazine Tab 50 Mg Tab) 50 mg PO AMHS ERIN Stop: 09/30/22 20:59 Last Admin: 09/03/22 08:25 Dose: 50 mg Hydromorphone HCl (Hydromorphone Inj 0.5 Mg/0.5 Ml Syr) 0.5 mg IV Q6H PRN PRN Reason: Pain Stop: 09/16/22 16:59 Ceftriaxone Sodium 2,000 mg/ (Dextrose) 70 mls @ 100 mls/hr IV DAILY [facility]; Protocol Stop: 09/05/22 16:44 Last Infusion: 09/03/22 08:38 Dose: Infused Remdesivir 100 mg/ Sodium (Chloride) 250 mls @ 250 mls/hr IV Q24H [facility] Last Infusion: 09/01/22 21:34 Dose: Infused Dexamethasone 6 mg/ Syringe 1.5 mls @ 1 mls/min IV DAILY [facility] Stop: 09/10/22 21:34 Last Admin: 09/03/22 08:27 Dose: 1 mls/min Insulin Aspart (Insulin Aspart Per Unit) 0 units SC ACHS [facility]; Protocol Stop: 10/03/22 07:29 Last Admin: 09/03/22 08:14 Dose: 4 units Insulin Glargine (Lantus Per Unit Charge) 8 units SQ BID [facility]; Protocol Stop: 10/03/22 08:59 Last Admin: 09/03/22 08:14 Dose: 8 units Labetalol HCl (Labetalol Hcl 300 Mg Tab) 300 mg PO AMHS [facility] Stop: 09/30/22 20:59 Last Admin: 09/03/22 08:25 Dose: 300 mg Miscellaneous (Carbohydrates For Hypoglycemia ) 15 - 30 gm PO UD PRN PRN Reason: Hypoglycemia Protocol Stop: 09/30/22 15:52 Miscellaneous (Brimonidine [Alphagan P] 0.1 % --Order Awaiting Action) 1 each N/A QS [facility] Stop: 10/01/22 00:00 Last Admin: 09/03/22 07:53 Dose: Not Given Miscellaneous Information (Pharmacy Glycemic Mgmt Consult) 1 each N/A UD PRN PRN Reason: Consult Stop: 09/30/22 15:52 Ondansetron HCl (Ondansetron Inj 2 Mg/Ml 2 Ml Vial) 4 mg IV Q6H PRN PRN Reason: Nausea Stop: 09/30/22 15:48 Last Admin: 09/01/22 07:48 Dose: 4 mg Pantoprazole Sodium (Pantoprazole 40 Mg Tab) 40 mg PO QAM [facility] Stop: 10/03/22 08:59 Last Admin: 09/03/22 08:26 Dose: 40 mg Travoprost (Travoprost Z 0.004% Oph Soln 2.5 Ml Btl) 1 drops OPL QPM ERIN Stop: 09/30/22 20:59 Last Admin: 09/02/22 21:03 Dose: 1 drops Vitamin D (Cholecalciferol 1,000 Units 25 Mcg Tab) 2,000 units PO AMHS ERIN Stop: 09/30/22 20:59 Last Admin: 09/03/22 08:25 Dose: 2,000 units
[2022-09-03 16:27] LABS: Appearance Urine Cloudy (Clear); Bacteria Urine Automated Negative (Negative); Bilirubin Urine Negative (Negative); Blood Urine 2+ (Negative); Color Urine Yellow; Glucose Urine UA Negative (Negative); Ketones Urine Negative (Negative); Leukocyte Esterase Urine 2+ (Negative); Nitrite Urine Negative (Negative); Protein Urine Trace (Negative); RBC Urine Automated >30 /hpf (0-4); Urobilinogen Urine Negative (Negative); WBC Urine Automated >30 /hpf (0-5)
[2022-09-03 16:39] LABS: Creatinine Urine Random 119.2 mg/dl
[2022-09-03] MEDS: ATORVASTATIN 10 MG TAB PO SCH (20:27)
[2022-09-03] MEDS: TRAVOPROST Z 0.004% OPH SOLN 2.5 ML BTL OPL SCH (20:27)
[2022-09-04] MEDS: HEPARIN SOD 5,000 UNIT/0.5 ML VIAL SQ SCH ×3 (06:11→21:59)
[2022-09-04 06:26] LABS: Basophils # (auto) 0.01 K/uL (0-0.2); Basophils % (auto) 0.1 %; Hematocrit (blood only) 29.8 % (34.1-44.9); Hemoglobin 9.8 g/dl (12.0-16.0); Immature Granulocytes # (auto) 0.07 K/uL (0.00-0.02); Immature Granulocytes % (auto) 0.7 %; Lymphocytes # (auto) 1.01 K/uL (1.2-3.4); Lymphocytes % (auto) 9.5 %; Mean Corpuscular Hemoglobin 26.1 pg (25.0-34.0); Mean Corpuscular Hgb Conc 32.9 g/dL (32.0-36.0); Mean Corpuscular Volume 79.5 fL (80.0-100.0); Mean Platelet Volume 11.4 fL (9.4-12.3); Monocytes # (auto) 1.24 K/uL (0.24-0.82); Monocytes % (auto) 11.7 %; Platelet Count 249 K/uL (130-400); RDW Coefficient of Variation 14.6 % (11.5-14.5); RDW Standard Deviation 42.5 fL (36.4-46.3); Red Blood Count 3.75 M/uL (3.93-5.22); White Blood Count 10.63 K/ul (4.8-10.8)
[2022-09-04 06:56] LABS: Albumin Globulin Ratio 1.4 (0.9-2); Albumin Level 3.3 gm/dl (3.4-5.0); BUN Creatinine Ratio 25.1 (10-20); Bilirubin,Total 0.3 mg/dl (0.2-1.0); Calcium 7.8 mg/dl (8.5-10.1); Creatinine Clr Calc Pharmacy 22.7 ml/min; Est GFR (African American) 26.9 ml/min; Est GFR (Non-African American) 23.2 ml/min; Globulin 2.4 gm/dl (2.5-4.0); Phosphorus 3.3 mg/dl (2.5-4.9); Potassium 3.8 mmol/L (3.5-5.1); Total Protein 5.7 gm/dl (6.0-8.3)
[2022-09-04] MEDS: cefTRIAXone SODIUM 2,000 MG in DEXTROSE 5% 50 ML IV SCH (07:47)
[2022-09-04] MEDS: LABETALOL HCL 300 MG TAB PO SCH ×2 (07:49→21:59)
[2022-09-04] MEDS: PANTOprazole 40 MG TAB PO SCH (07:49)
[2022-09-04] MEDS: DORZOLAMIDE/TIMOLOL 22.3/6.8MG/ML 10 ML BTL OPL SCH ×2 (07:50→21:57)
[2022-09-04] MEDS: hydrALAZINE TAB 50 MG TAB PO SCH ×2 (07:50→21:58)
[2022-09-04] MEDS: CHOLECALCIFEROL 1,000 UNITS 25 MCG TAB PO SCH ×2 (07:50→21:57)
[2022-09-04] MEDS: dexAMETHasone 6 MG in SYRINGE 0 ML IV SCH (07:52)
[2022-09-04] MEDS: INSULIN ASPART PER UNIT SC SCH ×4 (08:44→21:44)
[2022-09-04] MEDS: LANTUS PER UNIT CHARGE SQ SCH ×2 (08:45→21:44)
--- NOTE | 2022-09-04 12:13 | Nephrology Progress Note ---
Date of Service September 04, 2022 Assessment & Plan Admission and Anticipated Discharge Date Admission Date: August 31, 2022 Subjective S---Still on 5 liters o2. Says Breathing is better. PHYSICAL EXAMINATION: GENERAL: Elderly white female who is awake, alert, oriented x3. She is not in any overt respiratory distress. She is able to give me her detailed account of her medical problem. CHEST: Bilateral decreased breath sounds, occasional crackles. CARDIOVASCULAR: S1 and S2, regular. ABDOMEN: Soft, nontender, obese. EXTREMITIES: Show trace edema. LABORATORY TEST: From this morning shows a creatinine is about same for the last 2 days ASSESSMENT AND PLAN: An 82-year-old female with longstanding diabetes with gastroparesis and neuropathy with a near normal baseline creatinine, admitted with COVID infection. I have been consulted for acute renal failure and hyponatremia. Acute renal failure: Creat got worse while being inpatient and that usually goes with some degree of Acute tubular ischemia/necrosis. We do not know her baseline creatinine for sure, but even at admission, it was near normal at 1.37. She is making urine. Her vital signs especially blood pressure is r easonable. It is not unreasonable to see some degree of acute renal failure and hyponatremia in patients with COVID, especially in elderly patient. Sodium is borderline at this point. No further workup needed for this. daily labs. No iv fluid and no lasix for today. repeat chest x-ray tomorrow. will decide about Lasix after that. Results & Data ([facility]) Vital Signs (Past 12 Hours) Vital Signs Temp Pulse Resp BP Pulse Ox O2 Del Method O2 Flow Rate 09/04/22 07:45 Nasal Cannula 5 09/04/22 07:39 36.5 C 70 16 161/79 H 95 Nasal Cannula 5 09/04/22 07:15 36.8 C 75 24 147/84 H 97 Nasal Cannula 5
--- NOTE | 2022-09-04 14:28 | Gastroenterology Progress Note ---
Date of Service September 04, 2022 Assessment & Plan (1) Gastroparesis: Plan: She is doing much better. She is symptom free. Nothing further to add. Will sign off. Please reconsult if needed Admission and Anticipated Discharge Date Admission Date: August 31, 2022 Subjective feeling well with regards to stomach. Eating well. No nausea or vomiting. No pain Physical Exam Constitutional: WD/WN, vitals as above Results & Data ([facility]) Vital Signs (Past 12 Hours) Vital Signs Temp Pulse Resp BP Pulse Ox O2 Del Method O2 Flow Rate 09/04/22 07:45 Nasal Cannula 5 09/04/22 07:39 36.5 C 70 16 161/79 H 95 Nasal Cannula 5 09/04/22 07:15 36.8 C 75 24 147/84 H 97 Nasal Cannula 5
--- NOTE | 2022-09-04 18:58 | Hospitalist Progress Note ---
Date of Service September 04, 2022 Assessment & Plan (1) COVID-19: Plan: - mild symptoms of sore throat and rhinorrhea - now resolved - persistent dry cough with some production - continue dexamethasone x10 days - holding remdesivir as family is concerned for kidney function - prior attending explained to family that there is no real risk of worsening renal function with medication but insisted on holding this medication - advised of risks of holding - oxygen as needed to keep SpO2 >92% - IVF stopped due to possible pulmonary congestion with aggressive IVF, but no history of CHF - given 1 dose 20mg IV lasix 09/02/2022 with improvement in respiratory status - wean O2 as tolerated - on 5L NC at this time (2) MARY KATE (acute kidney injury): Plan: - likely in the setting of decreased po intake and n/v/d - IVF in ed - trend Cr - holding IVF for now given pulm edema 09/02/2022 - s/p IV lasix - creatinine remains elevated, nephrology on board, appreciate recommendation Follow-up CXR in the a.m., no Lasix or IV fluid today per nephro. - encourage po intake - avoid nephrotoxic meds (3) Gastroparesis: Plan: - persistent n/v and abdominal pain in the setting of diabetes - reports recent use of metoclopramide with ?torticollis side effects? - will avoid metoclopramide - advance diet as tolerated - tolerated low fat, low fiber diet - GI consult - symptomatic treatment - insulin for DM and good BG control in setting of gastroparesis - resolved (4) DM2 (diabetes mellitus, type 2): Plan: - A1c 7.8% 08/2022 - on lantus and prandials - will continue here - diabetic diet when tolerating PO - pharmacy insulin management (5) HTN (hypertension): Plan: - continue home medications - IV prns as needed if not tolerating PO (6) Anemia: Plan: - hgb 10.9 on admission - unclear baseline - no bleeding noted - iron studies, ferritin, b12, folate - likely chronic disease - monitor for now (7) Hyponatremia: Plan: - likely from decreased po and COVID19 - IVF as above - monitor Na in AM labs (8) UTI (urinary tract infection): Plan: - positive UA, positive symptoms of frequency - ceftriaxone for 5 days (5/5) Plan DVT ppx: heparin SC Code Status: Full Code Dispo: med/surg Admission and Anticipated Discharge Date Admission Date: August 31, 2022 Subjective Patient seen and examined at bedside as a follow-up of COVID-19 pneumonia, MARY KATE, gastroparesis. Patient was lying in bed, on 5 L nasal cannula oxygen, NAD, denies any new acute event overnight, reports eating okay and moving bowels okay, reports decreasing cough with clearing of the sputum, reports feeling better, denies feve r/chills/chest pain/palpitation/belly pain/other review of symptoms. Physical Exam Physical Exam: GENERAL: Alert and oriented x3. NAD, on 5L NC O2. HEENT: No pallor, no icterus. Pupils equal, round and reactive to light. Oral mucosa moist. NECK: No JVD, no neck masses. HEART: S1 and S2 heard. Regular rate and rhythm. No murmur, no gallop. RESPIRATORY SYSTEM: Normal AP diameter. No accessory muscle use. No wheezing, no crackles. ABDOMEN: Soft, bowel sounds present, nontender, no distention. CENTRAL NERVOUS SYSTEM: No facial droop. Speech is clear. Obeys simple commands. Moves extremities. EXTREMITIES: trace ble edema, no erythema seen. Results & Data Results & Data ([facility]) Vital Signs (Past 12 Hours) Vital Signs Temp Pulse Resp BP BP Pulse Ox O2 Del Method 09/04/22 16:52 36.5 C 68 22 154/74 H 96 Nasal Cannula 09/04/22 15:02 95 09/04/22 07:45 Nasal Cannula 09/04/22 07:39 36.5 C 70 16 161/79 H 95 Nasal Cannula 09/04/22 07:15 36.8 C 75 24 147/84 H 97 Nasal Cannula O2 Flow Rate 09/04/22 16:52 5 09/04/22 15:02 09/04/22 07:45 5 09/04/22 07:39 5 09/04/22 07:15 5
[2022-09-04] MEDS: ATORVASTATIN 10 MG TAB PO SCH (21:57)
[2022-09-04] MEDS: TRAVOPROST Z 0.004% OPH SOLN 2.5 ML BTL OPL SCH (21:58)
[2022-09-05] MEDS: HEPARIN SOD 5,000 UNIT/0.5 ML VIAL SQ SCH ×2 (06:26→12:42)
[2022-09-05 08:01] LABS: Hemoglobin 9.6 g/dl (12.0-16.0); Mean Corpuscular Hemoglobin 26.4 pg (25.0-34.0); Mean Corpuscular Hgb Conc 33.1 g/dL (32.0-36.0); Mean Corpuscular Volume 79.7 fL (80.0-100.0); Mean Platelet Volume 11.3 fL (9.4-12.3); Platelet Count 236 K/uL (130-400); RDW Coefficient of Variation 14.7 % (11.5-14.5); RDW Standard Deviation 42.6 fL (36.4-46.3); Red Blood Count 3.64 M/uL (3.93-5.22); White Blood Count 10.64 K/ul (4.8-10.8)
[2022-09-05 08:22] LABS: BUN Creatinine Ratio 29.6 (10-20); Calcium 7.9 mg/dl (8.5-10.1); Creatinine Clr Calc Pharmacy 23.7 ml/min; Est GFR (Non-African American) 27.6 ml/min; Potassium 3.9 mmol/L (3.5-5.1)
[2022-09-05] MEDS: DORZOLAMIDE/TIMOLOL 22.3/6.8MG/ML 10 ML BTL OPL SCH (08:26)
[2022-09-05] MEDS: cefTRIAXone SODIUM 2,000 MG in DEXTROSE 5% 50 ML IV SCH (08:26)
[2022-09-05] MEDS: LABETALOL HCL 300 MG TAB PO SCH (08:27)
[2022-09-05] MEDS: hydrALAZINE TAB 50 MG TAB PO SCH (08:27)
[2022-09-05] MEDS: PANTOprazole 40 MG TAB PO SCH (08:27)
[2022-09-05] MEDS: dexAMETHasone 6 MG in SYRINGE 0 ML IV SCH (08:28)
[2022-09-05] MEDS: CHOLECALCIFEROL 1,000 UNITS 25 MCG TAB PO SCH (08:28)
[2022-09-05] MEDS: INSULIN ASPART PER UNIT SC SCH ×3 (09:07→17:41)
[2022-09-05] MEDS: LANTUS PER UNIT CHARGE SQ SCH (09:08)
[2022-09-05 11:26] LABS: Urea Nitrogen, Random Urine 1023 mg/dL
--- NOTE | 2022-09-05 12:01 | XRay Report ---
XR chest 1V portable HISTORY: Shortness of breath. Follow-up. COMPARISON: Chest 09/02/2022. FINDINGS: No pneumothorax. The pulmonary edema has essentially resolved in the interval. No new focal lung consolidations to suggest a pneumonia. The small bilateral pleural effusions and bibasilar dens ities have improved. The heart remains mildly enlarged. IMPRESSION: 1. Interval resolution of the pulmonary edema. 2. Small bilateral pleural effusions and bibasilar densities have also improved. ACT 112: Negative or not required by law. Electronically signed by: Chester Jalloh M.D. 09/05/2022 12:00 PM
--- NOTE | 2022-09-05 13:13 | Nephrology Progress Note ---
Date of Service September 05, 2022 Assessment & Plan Admission and Anticipated Discharge Date Admission Date: August 31, 2022 Subjective Subjective S---Still on 5 liters o2. Says Breathing is better. PHYSICAL EXAMINATION: GENERAL: Elderly white female who is awake, alert, oriented x3. She is not in any overt respiratory distress. She is able to give me her detailed account of her medical problem. CHEST: Bilateral decreased breath sounds, occasional crackles. CARDIOVASCULAR: S1 and S2, regular. ABDOMEN: Soft, nontender, obese. EXTREMITIES: Show trace edema. LABORATORY TEST: From this morning shows a creatinine is better now ASSESSMENT AND PLAN: An 82-year-old female with longstanding diabetes with gastroparesis and neuropathy with a near normal baseline creatinine, admitted with COVID infection. I have been consulted for acute renal failure and hyponatremia. Acute renal failure: Creat got worse while being inpatient and that usually goes with some degree of Acute tubular ischemia/necrosis. We do not know her baseline creatinine for sure, but even at admission, it was near normal at 1.37. She is making urine. Her vital signs especially blood pressure is reasonable. It is not unreasonable to see some degree of acute renal failure and hyponatremia in patients with COVID, especially in elderly patient. Sodium is borderline at this point. No further workup needed for this. daily labs.repeat chest x-ray shows resolved pulm edema. . Results & Data ([facility]) Vital Signs (Past 12 Hours) Vital Signs Temp Pulse Resp BP Pulse Ox O2 Del Method O2 Flow Rate 09/05/22 07:20 Nasal Cannula 4 09/05/22 08:03 36.4 C L 68 17 161/77 H 98 Nasal Cannula 5
--- NOTE | 2022-09-05 16:02 | Discharge Summary ---
Date of Service September 05, 2022 Admission HPI Per Admitting Provider The patient is an 82 year old woman with pmh DM2, gastroparesis, HLD, HTN who presents with 2-3 days of intractable nausea and vomiting with abdominal pain. the patient and daughter at bedside say she has been experiencing persistent nausea for several months and had seen a servicer coin machines who prescribed metoclopramide for gastroparesis. However, the patient reports symptoms of torticollis after starting metoclopramide despite relief from gastroparesis symptoms. The patient reports severe vomiting starting last night, prior to admission. She has not been able to eat and has had terrible abdominal pain. She denies fevers or chills but was COVID positive since Friday prior to admission with symptoms of sore throat, loss of taste, rhinorrhea, dry cough. She also reports decreased appetite for the past 2 weeks with minimal po intake due to pain, nausea and vomiting. Denies blood in vomit. Had several episodes of diarrhea in the last 24 hours as well. Denies chest pain, shortness of breath, dysuria but endorses frequency. In the ED, vitals were unremarkable. Labs were significant for Na 134, Cr 1.37 (unclear baseline), hgb 10.9 (unclear baseline), BG 217, AG 13, UA positive for infection, SARS-CoV-2 positive. CXR was negative, CT-AP showed possible ?mucocele (5.0 x 2.6 cm hypodense tubular shaped lesion within the right lower quadrant. This appears to be contiguous with the tip of the appendix as well as adjacent to the right ovary. Therefore, this could represent an appendiceal mucocele or possibly an ovarian lesion). She was given IVF, pain medication, metoclopramide and admitted to medicine. Admission Exam Per Admitting Provider GENERAL: sleepy, lying in bed, alert when spoken to, chronically ill-appearing, disheveled EYE EXAM: injected conjunctiva. OROPHARYNX: mucous membranes are dry NECK: supple, no nuchal rigidity, no adenopathy, non-tender LUNGS: Clear to auscultation. Normal chest wall mechanics HEART: no murmurs, S1 normal and S2 normal ABDOMEN: abdomen soft, tender to palpation in epigastric region, hypoactive bowel sounds, no masses, no rebound or guarding. UPPER EXTREMITIES: upper extremities are grossly normal. LOWER EXTREMITIES: No pitting edema. NEURO EXAM: Normal sensorium, cranial nerves II-XII grossly intact, normal speech, no gross weakness of arms, no gross weakness of legs. Principal Diagnosis COVID-19 infection MARY KATE over CKD Gastroparesis T2DM Discharge Exam GENERAL: Alert and oriented x3. NAD, on RA HEENT: No pallor, no icterus. Pupils equal, round and reactive to light. Oral mucosa moist. NECK: No JVD, no neck masses. HEART: S1 and S2 heard. Regular rate and rhythm. No murmur, no gallop. RESPIRATORY SYSTEM: Normal AP diameter. No accessory muscle use. No wheezing, no crackles. ABDOMEN: Soft, bowel sounds present, nontender, no distention. CENTRAL NERVOUS SYSTEM: No facial droop. Speech is clear. Obeys simple commands. Moves extremities. EXTREMITIES: trace ble edema, no erythema seen. Discharge Data Allergies Allergy/AdvReac Type Severity Reaction Status Date / Time oxycodone Allergy Unknown Verified 08/31/22 16:25 Consultations 08/31/22 15:42 ED Decision to Admit Stat 08/31/22 16:48 Consult General Surgery Routine Consult Neurology Routine 08/31/22 16:49 Consult Gastroenterology Routine 09/01/22 11:49 Consult Gynecology Routine 09/02/22 09:07 Consult Gynecology Routine 09/02/22 16:33 Consult Nephrology Routine Ordered Studies 08/31/22 12:10 CT Abd and Pelvis [CT abd pelvis IV con only] Stat 08/31/22 16:50 CT head/brain wo con Stat Hospital Course (1) COVID-19: - mild symptoms of sore throat and rhinorrhea - now resolved - persistent dry cough with some production ---> improved - continue dexamethasone x10 days, c/w incentive spirometer at home for next 1-2 weeks. - holding remdesivir as family is concerned for kidney function - prior attending explained to family that there is no real risk of worsening renal function with medication but insisted on holding this medication - advised of risks of holding - oxygen as needed to keep SpO2 >92%, pt weaned off of O2 to RA successfully. - Pts to wear mask around people for next 5 days. (2) MARY KATE (acute kidney injury): - likely in the setting of decreased po intake and n/v/d, s/p IVF, Cr trending down, pt to hold lasix for next few days until PCP can eval her and get cmp done. (3) Gastroparesis: - persistent n/v and abdominal pain in the setting of diabetes - reports recent use of metoclopramide with ?torticollis side effects? - will avoid metoclopramide - advance diet as tolerated - tolerated low fat, low fiber diet, small meals at a time, - GI consult - symptomatic treatment - insulin for DM and good BG control in setting of gastroparesis - resolved (4) DM2 (diabetes mellitus, type 2): - A1c 7.8% 08/2022 - on lantus and prandials - will continue here - diabetic diet when tolerating PO - pharmacy insulin management (5) HTN (hypertension): - continue home medications (6) Anemia: - hgb 10.9 on admission - unclear baseline - no bleeding noted - iron studies, ferritin, b12, folate - likely chronic disease - monitor for now (7) Hyponatremia: - likely from decreased po and COVID19 - resolved (8) UTI (urinary tract infection): - positive UA, positive symptoms of frequency - s/p ceftriaxone Plan Code Status: Full Code PT reevaluated the patient today, recommended short-term rehab but patient insisting to go home. Communicated same to the patient's daughter via phone, patient's daughter Mily states that she is able to provide 24/7 care and provide " hands-on assistance" with all transfers and standing tasks. sales consultant residential manager communicated to set up home health. Patient being discharged with following instruction at the point of discharge: Please follow-up with your primary care physician within a week time and likely you will need blood test CBC/CMP/magnesium/phosphorus level. You have been diagnosed with COVID on 08/31/2022, please maintain mask when around people for the next 5 days, you have been weaned off of oxygen successfully, continue to do incentive spirometer 10 times a day while awake at home for next 1 to 2 weeks. Continue to take your dexamethasone for 4 more days as prescribed. For your acute on chronic kidney injury, your kidney numbers were getting better, continue to hold your home Lasix for next week, get your blood work CMP done in your PCP office within a week time where your PCP can evaluate you for resuming your prior dose of Lasix. Please maintain fluid intake around 50 ounces per day. For your gastroparesis, you will need to consume low-fat/low fiber diet in a small volume at a time, meals can be made more frequent. Please avoid large volume to avoid exacerbation of your gastroparesis leading to nausea and vomiting. You are not supposed to use metoclopramide in future due to side effect you received from it while in hospital. Take your medications as prescribed. Home Health Attestation I certify that this patient is under my care and that I, or a physicians medical assistant float working with me, had a face to-face encounter that meets the home health [id number] encounter requirements with this patient. The encounter with the patient was in whole, or in part, for the following medical condition, which is the primary reason for home health care (list medical condition): Covid-19 I certify that, based on my findings, the following services are medically necessary home health services: My clinical findings support the need for the above services because: PT Assessment for Endurance / Balance / Strength PT Eval for Safety and Mobility PT Eval for Safety, Gait Training, Assistive Devices PT Gait and Balance Training, Strengthening and Safety Skilled Nsg Assessment Skilled Nsg Assess Pt Illness, Disease and Sx Monitoring Further, I certify that my clinical findings support that this patient is homebound (i.e. absences from home require considerable and taxing effort and are for medical reasons or holiness services or infrequently or of short duration when for other reasons) because: Transportation Assistance/Unable to Leave Home Unassisted Certification for Home Health Services: Based on the above findings, I certify that this patient is confined to the home and needs intermittent residential care, physical therapy and/or speech therapy or continues to need occupational therapy. The patient is under my care, and I have initiated the establishment of the plan of care. This patient will be followed by a physician who will periodically review the plan of care. Total Time Total Time Spent Total Time Spent (In Minutes): 45 Discharge Plan Discharge Items Patient Disposition: Home - Home Health Services Reason For Visit: NAUSEA,VOMITING Discharge Diagnosis: COVID-19 infection MARY KATE over CKD Gastroparesis T2DM Activity: Resume your previous activity Non-emergency contact: Primary Care Provider Call non-emergency contact if: you have any medication questions, your symptoms worsen and your temperature is above 101.5 Follow-up/Referrals: PCP,NO [Primary Care Provider] - Diet: Carb Consistent or DM2, Low Fiber and Low Fat Addtl Attending Provider Instructions: Mrs. Villeda, Please follow-up with your primary care physician within a week time and likely you will need blood test CBC/CMP/magnesium/phosphorus level. You have been diagnosed with COVID on 08/31/2022, please maintain mask when around people for the next 5 days, you have been weaned off of oxygen successfully, continue to do incentive spirometer 10 times a day while awake at home for next 1 to 2 weeks. Continue to take your dexamethasone for 4 more days as prescribed. For your acute on chronic kidney injury, your kidney numbers were getting better, continue to hold your home Lasix for next week, get your blood work CMP done in your PCP office within a week time where your PCP can evaluate you for resuming your prior dose of Lasix. Please maintain fluid intake around 50 ounces per day. For your gastroparesis, you will need to consume low-fat/low fiber diet in a small volume at a time, meals can be made more frequent. Please avoid large volume to avoid exacerbation of your gastroparesis leading to nausea and vomiting. You are not supposed to use metoclopramide in future due to side effect you received from it while in hospital. Take your medications as prescribed. Pending Studies at Discharge: No Stand-Alone Forms: [facility], Smoking Cessation Medications and DC Order Prescriptions: New dexamethasone 6 mg tablet 6 mg PO DAILY 4 Days Qty: 4 0RF Continued silver sulfadiazine [SSD] 1 % cream 1 applic TOPICAL BID Rx Instructions: apply to bed sore labetalol 200 mg tablet 300 mg PO [facility] Rx Instructions: 1 & 1/2 tablet dose atorvastatin 10 mg tablet 10 mg PO HS ondansetron HCl 4 mg tablet 4 mg PO Q8 PRN (Reason: Nausea) travoprost [Travatan Z] 0.004 % drops 1 drp OPL QPM acetaminophen 500 mg tablet 500 mg PO Q6 PRN (Reason: Fever Or Pain) dorzolamide-timolol 22.3-6.8 mg/mL drops 1 drp OPL [facility] Rx Instructions: 1 drop into each affected eye twice a day pantoprazole 40 mg tablet,delayed release (DR/EC) 40 mg PO HS Alphagan P 0.1 % drops 1 drp OPL BID insulin glargine [Basaglar KwikPen U-100 Insulin] 100 unit/mL (3 mL) insulin pen 15 - 18 unit SUBCUT .Q AFTERNOON & HS Rx Instructions: sliding scale post BSG every afternoon and at bedtime cholecalciferol (vitamin D3) 50 mcg (2,000 unit) capsule 2,000 unit PO [facility] hydralazine 25 mg tablet 50 mg PO [facility] acetaminophen 500 mg tablet 500 mg PO QPM insulin aspart U-100 [Novolog Flexpen U-100 Insulin] 100 unit/mL (3 mL) insulin pen 1 - 3 unit SUBCUT .WITH BREAKFAST furosemide 40 mg tablet 20 mg PO QAM Qty: 20 0RF Rx Instructions: 1/2 tablet dose. HOLD UNTIL CMP DONE IN PCP OFFICE IN A WEEK TIME. Discontinued metoclopramide HCl 5 mg tablet 5 mg PO DAILYBB Discharge Orders: Discharge Order (Routine); Ordered 09/05/22 Ordered By: Lolis Espinosa/Other Patient Handouts: Managing Type 2 Diabetes Admission Data Admit Date/Time: 08/31/22 15:49 Attending Provider: Lolis Rob Admit Provider: Tom Reed Primary Care Provider: PCP,NO Other Providers: Tom Reed ; Oscar Stephenson ; Bijan Orta ; Samantha Randall Jr ; Neville Otoole ; Felipe Thornton ; Deborah Willams ; Judy Calix ; Binu Saravia ; Carter Stewart ; Kehinde Bell ; Nichelle Simmons ; Jahaira Matias V. ; Ashley Maria ; So Castrejon ; Siobhan Bain ; Mai Ahumada ; Marily March ; Spencer Man ; Kevin Cope
== END 2022-09-05 19:06 | disposition home health service (06) | DRG 178 ==
LOC: ED 11:48 → SUATTDRO 15:49 → 3E 15:49
DX: E87.1 Hypo-osmolality and hyponatremia; N17.9 Acute kidney failure, unspecified; K31.84 Gastroparesis; Z87.891 Personal history of nicotine dependence; Z79.4 Long term (current) use of insulin; Z88.5 Allergy status to narcotic agent; D64.9 Anemia, unspecified; G24.09 Other drug induced dystonia; J34.89 Other specified disorders of nose and nasal sinuses; Y92.019 Unspecified place in single-family (private) house as the place of occurrence of the external cause; J02.8 Acute pharyngitis due to other specified organisms; E11.21 Type 2 diabetes mellitus with diabetic nephropathy; I10 Essential (primary) hypertension; U07.1 COVID-19; N39.0 Urinary tract infection, site not specified; T45.0X5A Adverse effect of antiallergic and antiemetic drugs, initial encounter; E11.43 Type 2 diabetes mellitus with diabetic autonomic (poly)neuropathy